=== PATIENT | female | born 1950 | race Caucasian/White ===

== ENCOUNTER 2018-12-29 16:52 | Inpatient (IN) ==
[2018-12-29] MEDS ORDERED: 0.9 % Sodium Chloride 1,000 ML IVC ONE ×2 (17:02→18:15)
[2018-12-29 17:16] LABS: Basophils # 0.1 K/mcL (0.0-0.2); Basophils % 0.5 %; Eosinophils % 0.1 %; Hematocrit 35.5 % (35.3-44.9); Hemoglobin 11.7 g/dL (11.5-15.4); Immature Granulocytes % 1.2 % (0-4); Lymphocytes # 0.8 K/mcL (0.6-4.6); Lymphocytes % 7.3 %; Mean Corpuscular Volume 94.2 fL (83.0-100.0); Mean Platelet Volume 9.5 fL (9.4-12.4); Monocytes # 0.8 K/mcL (0.0-1.3); Monocytes % 7.1 %; Neutrophils # 9.5 K/mcL (1.6-8.9); Platelet Count 481 K/mcL (140-400); Red Blood Count 3.77 M/mcL (3.82-4.97); Red Cell Distribution Width 13.5 % (11.5-14.5); Segmented Neutrophils % 83.8 %; White Blood Count 11.3 K/mcL (4.3-11.1)
--- NOTE | 2018-12-29 17:38 | Emergency Department Note ---
Disposition Clinical Impression: Neutropenic fever, Acute renal insufficiency, Dehydration Breast cancer Qualifiers: Breast location: unspecified site of breast Estrogen receptor status: unspecified Patient sex: female Laterality: unspecified laterality Qualified Code(s): C50.919 - Malignant neoplasm of unspecified site of unspecified female breast Disposition: Admitted As Inpatient Condition: Fair Referrals: Israel Green Jr, MD [Primary Care Provider] - Forms: ED Satisfaction Letter Time of Disposition: 21:19 General Adult HPI - General Chief complaint: ED Fever Stated complaint: fever, low BP Time Seen by Provider: 12/29/18 16:54 Source: patient Mode of arrival: ambulatory Limitations: no limitations Nursing Notes Reviewed: Yes Vital Signs Reviewed: Yes - History of Present Illness HPI Narrative: Patient is a 68-year-old female that presents the emergency department due to being febrile and hypotensive. His reported that the patient had a fever of 101 at home. Patient had a blood pressure of 70 systolic at her physician's office. Patient states that she has had a dry cough. Patient states that she has a history of breast cancer and is receiving chemotherapy. Patient states she is unable to have her last dose of chemotherapy due to not feeling well. Patient states that she is not having any chest pain, shortness breath, belly pain, nausea vomiting or diarrhea. Patient states that she is otherwise healthy other than the breast cancer. Pain Scale: 0 - Related Data Home Medications Medication Instructions Recorded Confirmed Ca/D3/Mag#11/Zinc/Refrigerator Room Clerk/Ilia/Bor 1 each PO HS 07/09/16 12/13/18 [Caltrate 600+D Plus Tablet] Multivit-Min/FA/Lycopen/Lutein 1 each PO DAILY 07/09/16 12/13/18 [Centrum Silver Tablet] Olmesartan/Hydrochlorothiazide 1 each PO DAILY 07/09/16 12/13/18 [Benicar Hct 20-12.5 mg Tablet] Levothyroxine [Synthroid] 50 mcg PO DAILY 08/16/18 12/13/18 Previous Rx's Medication Instructions Recorded Lidocaine/Prilocaine [Emla] 1 appl TP AD #30 gm 08/25/18 Dexamethasone [Decadron] 4 mg PO BID #36 tab 08/27/18 Ondansetron HCl [Zofran] 4 mg PO Q8HR PRN #90 tab 04/05/19 Prochlorperazine Maleate 10 mg PO Q8HR #90 tablet 08/27/18 [Compazine] Potassium Chloride [K-Tab ER] 10 meq PO DAILY #30 tablet.er 11/15/18 Allergies Allergy/AdvReac Type Severity Reaction Status Date / Time adhesive tape Allergy Rash Verified 12/13/18 13:42 All systems ED: reviewed and negative except as stated. Constitutional: Reports: fever Cardiovascular: Reports: other (Hypotension). Denies: chest pain Respiratory: Denies: dyspnea Gastrointestinal: Denies: abdominal pain Genitourinary: Denies: dysuria, frequency, hematuria Neurological: Denies: weakness, numbness, paresthesias Past Medical History - Past Medical History Medical history: Reports: cancer, hypertension, thyroid disease Surgical history: Reports: cholecystectomy, hysterectomy Psychiatric history: Reports: no psych history - Social History Smoking Status: Never smoker Smokeless Tobacco Status: No Alcohol use: Reports: none Drug use: Reports: none Physical Exam - General Limitations: no limitations General appearance: alert, in no apparent distress - Head Head exam: atraumatic, normocephalic - Eye Eye exam: Present: normal appearance, EOMI - Neck Neck exam: Present: normal inspection, full ROM, trachea midline - Respiratory Respiratory exam: Present: normal lung sounds bilaterally. Absent: respiratory distress, wheezes - Cardiovascular Cardiovascular exam: Present: regular rate, normal rhythm, normal heart sounds, +S1, +S2 - Abdominal Exam Abdominal exam: Present: soft, Non-Tender, normal bowel sounds - Neurological Exam Neurological exam: Present: alert, oriented X3 - Psychiatric Psychiatric exam: Present: normal affect, normal mood - Skin Skin exam: Present: warm, dry, intact Course Vital Signs Temperature 97.5 F L 12/29/18 16:54 Pulse Rate 78 12/29/18 16:54 Respiratory Rate 20 12/29/18 16:54 Blood Pressure 83/52 12/29/18 16:54 O2 Sat by Pulse Oximetry 96 12/29/18 16:54 Temperature 97.5 F L 12/29/18 16:54 Pulse Rate 125 12/29/18 20:00 Respiratory Rate 17 12/29/18 20:00 Blood Pressure 106/64 12/29/18 20:00 O2 Sat by Pulse Oximetry 94 12/29/18 20:00 Oxygen Delivery Oxygen Delivery Room Air Medical Decision Making - MDM Narrative Medical decision making narrative: Due the patient presenting to the emergency department with reports of hypotension and tachycardia as well as a fever there was initial concern that the patient may be septic. Initial septic workup was obtained. The patient did have an elevated troponin of 0.19. Patient did not have any chest pain. Patient had elevated creatinine of 2.14 with a reduced GFR 23. Patient also had initial elevated lactic acid 3.0. Patient did receive IV fluids. She did receive approximately 1800 mL of fluids and a repeat lactic acid was obtained which showed improvement of her lactic acid to 1.0. Due to the patient having persistent tachycardia up into the 160s a feel that the troponin is likely elevated due to her persistent tachycardia. Patient also states that she has not been eating and drinking well over the past 4-5 days. I feel that her laboratory findings are likely secondary to dehydration and lack of by mouth intake. CT scan of the chest abdomen and pelvis showed a possible pneumonitis but did not show any other acute symptoms to explain the patient's laboratory findings and symptoms. At this time there is no infectious etiology that has been identified. Empirically the patient was given a dose of vancomycin and Zosyn. Patient states that she has not had any chest pain at all over the past couple of days. Patient states that she she is feeling better now after receiving IV fluids. The did report that the patient did require IV fluids approximately 2-3 days ago at the cancer center due to being hypotensive and not feeling well. Patient states that at that time she did have significant improvement of her symptoms at that time as well. Due the patient's laboratory findings and initial presentation feel is most appropriate for her to be admitted to the hospital for further evaluation and management. I called and spoke with the admitting hospitalist Dr. Leonard and he has accepted the patient to their service. Patient be admitted to the hospital this time for further evaluation and management. - Medical Records Medical records reviewed: Yes I reviewed the patient's medical records. - Lab Data Lab results reviewed: Yes I reviewed the patient's lab results. Result diagrams: 12/29/18 17:03 12/29/18 17:03 Lab Results 12/29/18 12/29/18 12/29/18 Range/Units 17:03 17:03 17:03 WBC 11.3 H (4.3-11.1) K/mcL RBC 3.77 L (3.82-4.97) M/mcL Hgb 11.7 (11.5-15.4) g/dL Hct 35.5 (35.3-44.9) % MCV 94.2 (83.0-100.0) fL MCH 31.0 (28.0-33.3) pg MCHC 33.0 (31.6-35.5) g/dL RDW 13.5 (11.5-14.5) % Plt Count 481 H (140-400) K/mcL MPV 9.5 (9.4-12.4) fL Immature Gran % 1.2 (0-4) % Seg Neutrophils % 83.8 % Lymphocytes % 7.3 % Monocytes % 7.1 % Eosinophils % 0.1 % Basophils % 0.5 % Neutrophils # 9.5 H (1.6-8.9) K/mcL Lymphocytes # 0.8 (0.6-4.6) K/mcL Monocytes # 0.8 (0.0-1.3) K/mcL Eosinophils # 0.0 (0.0-0.6) K/mcL Basophils # 0.1 (0.0-0.2) K/mcL Sodium 135 L (136-145) mEq/L Potassium 3.1 L (3.5-5.1) mEq/L Chloride 97 L (98-107) mEq/L Carbon Dioxide 18 L (23-29) mEq/L BUN 33 H (8-23) mg/dL Creatinine 2.14 H (0.60-1.20) mg/dL Est GFR ( Amer) 28 L (> 60) Est GFR (Non-Af Amer) 23 L (> 60) BUN/Creatinine Ratio 15 (6-26) Glucose 159 H (70-105) mg/dL Calculated Osmolality 291 (280-300) Lactic Acid 3.0 H (0.5-2.2) mmol/L Uric Acid 8.0 H (2.3-7.6) mg/dL Calcium 9.5 (8.6-10.3) mg/dL Phosphorus 4.2 (2.7-4.5) mg/dL Magnesium 1.7 (1.6-2.6) mg/dL Total Bilirubin 0.5 (0.3-1.0) mg/dL Direct Bilirubin 0.0 (0.0-0.2) mg/dL Indirect Bilirubin 0.5 (0.0-1.2) mg/dL AST 15 (13-39) Units/L ALT 17 (7-52) Units/L Alkaline Phosphatase 55 (34-104) Units/L Troponin I 0.19 H* (< 0.04) ng/mL Serum Total Protein 7.3 (6.4-8.9) g/dL Albumin 3.6 (3.5-5.7) g/dL Globulin 3.7 H (2.4-3.5) g/dL Albumin/Globulin Ratio 1.0 L (1.1-2.2) Urine Color (Yellow) Urine Clarity (Clear) Urine pH (5.0-8.0) pH Units Ur Specific Conner (1.010-1.025) Urine Protein (Neg-Trace) mg/dL Urine Glucose (UA) (Normal) mg/dL Urine Ketones (Negative) mg/dL Urine Blood (Negative) Urine Nitrite (Negative) Urine Bilirubin (Negative) Urine Urobilinogen (Normal) mg/dL Ur Leukocyte Esterase (Negative) Urine Microscopic RBC (0-3) per hpf Urine Microscopic WBC (0-3) per hpf Ur Squamous Epith Cells (None-Few) per lpf Ur Transition Epith Cell (None-Few) per hpf Urine Bacteria (None-Few) per hpf Hyaline Casts (None-Few) per lpf Ur Culture Indicated? (NO) 12/29/18 12/29/18 Range/Units 18:15 20:19 WBC (4.3-11.1) K/mcL RBC (3.82-4.97) M/mcL Hgb (11.5-15.4) g/dL Hct (35.3-44.9) % MCV (83.0-100.0) fL MCH (28.0-33.3) pg MCHC (31.6-35.5) g/dL RDW (11.5-14.5) % Plt Count (140-400) K/mcL MPV (9.4-12.4) fL Immature Gran % (0-4) % Seg Neutrophils % % Lymphocytes % % Monocytes % % Eosinophils % % Basophils % % Neutrophils # (1.6-8.9) K/mcL Lymphocytes # (0.6-4.6) K/mcL Monocytes # (0.0-1.3) K/mcL Eosinophils # (0.0-0.6) K/mcL Basophils # (0.0-0.2) K/mcL Sodium (136-145) mEq/L Potassium (3.5-5.1) mEq/L Chloride (98-107) mEq/L Carbon Dioxide (23-29) mEq/L BUN (8-23) mg/dL Creatinine (0.60-1.20) mg/dL Est GFR ( Amer) (> 60) Est GFR (Non-Af Amer) (> 60) BUN/Creatinine Ratio (6-26) Glucose (70-105) mg/dL Calculated Osmolality (280-300) Lactic Acid 1.0 (0.5-2.2) mmol/L Uric Acid (2.3-7.6) mg/dL Calcium (8.6-10.3) mg/dL Phosphorus (2.7-4.5) mg/dL Magnesium (1.6-2.6) mg/dL Total Bilirubin (0.3-1.0) mg/dL Direct Bilirubin (0.0-0.2) mg/dL Indirect Bilirubin (0.0-1.2) mg/dL AST (13-39) Units/L ALT (7-52) Units/L Alkaline Phosphatase (34-104) Units/L Troponin I (< 0.04) ng/mL Serum Total Protein (6.4-8.9) g/dL Albumin (3.5-5.7) g/dL Globulin (2.4-3.5) g/dL Albumin/Globulin Ratio (1.1-2.2) Urine Color Yellow (Yellow) Urine Clarity Clear (Clear) Urine pH 7.5 (5.0-8.0) pH Units Ur Specific Conner 1.020 (1.010-1.025) Urine Protein 100 H (Neg-Trace) mg/dL Urine Glucose (UA) Normal (Normal) mg/dL Urine Ketones 15 H (Negative) mg/dL Urine Blood Trace-intact H (Negative) Urine Nitrite Negative (Negative) Urine Bilirubin Negative (Negative) Urine Urobilinogen Normal (Normal) mg/dL Ur Leukocyte Esterase Trace H (Negative) Urine Microscopic RBC 3-5 H (0-3) per hpf Urine Microscopic WBC 15-30 H (0-3) per hpf Ur Squamous Epith Cells Many H (None-Few) per lpf Ur Transition Epith Cell Few (None-Few) per hpf Urine Bacteria None Seen (None-Few) per hpf Hyaline Casts Few (None-Few) per lpf Ur Culture Indicated? YES A (NO) - Radiology Data Radiology results reviewed: Yes I reviewed the patient's radiology results. Chest X-Ray 12/29/18 17:02 IMPRESSION: 1. Cardiomegaly with mild vascular congestion. D/ / Trev Myles MD / Trev Myles MD Interpreting Provider: Trev Myles MD Abdomen/Pelvis CT 12/29/18 18:46 IMPRESSION: Fluid is seen within the lumen of the colon, in keeping with patient's history of diarrhea. Patchy heterogeneous and ground-glass opacity bilaterally, suggestive of pneumonitis with regions of air trapping. Mild induration of fat anterior to the bladder. If there is clinical question of cystitis, suggest correlation with urinalysis. D/ / Harsh Jones MD / Harsh Jones MD Interpreting Provider: Harsh Jones MD Chest CT 12/29/18 18:46 IMPRESSION: Fluid is seen within the lumen of the colon, in keeping with patient's history of diarrhea. Patchy heterogeneous and ground-glass opacity bilaterally, suggestive of pneumonitis with regions of air trapping. Mild induration of fat anterior to the bladder. If there is clinical question of cystitis, suggest correlation with urinalysis. D/ / Harsh Jones MD / Harsh Jones MD Interpreting Provider: Harsh Jones MD - EKG Data EKG #1 EKG attestation: Yes I reviewed and interpreted this EKG. EKG results narrative: EKG at 1704 shows a sinus tachycardia at a rate of 147 bpm, ND interval of 83, QRS duration 101, QTC 465. No evidence of STEMI on EKG. There are ST depressions in leads 1 and 2 and T-wave inversions in aVL. EKG #2 EKG attestation: Yes I reviewed and interpreted this EKG. EKG results narrative: EKG and 1816 shows sinus tachycardia at a rate of 142 bpm, ND interval of 101, QRS duration and 90, QTc of 480. No evidence of STEMI and EKG. There are T- wave inversions in aVL, ST depression in lead 1 and lead 2. Attestation Statement - Attestation Attestation: I, Diaz Ruffin DO, examined this patient [id number] and my medical decision-making was reviewed with Dr. Candelario Ortega, Resident Physician. I agree with the documented findings, disposition and treatment plan as described except to the extent set forth below. I personally supervised and was present for the ambrosio/critical portions of the procedures completed by the resident documented below. Please see my progress notes for details.
[2018-12-29 17:47] LABS: Troponin I 0.19 ng/mL (< 0.04)
[2018-12-29] MEDS ORDERED: Isovue-370 500 ML BOTTLE IVP ONE (18:02)
[2018-12-29 18:27] LABS: Bilirubin,Urine Negative (Negative); Blood,Urine Trace-intact (Negative); Clarity,Urine Clear (Clear); Color,Urine Yellow (Yellow); Glucose,Urine (UA) Normal (Normal); Ketones,Urine 15 mg/dL (Negative); Leukocyte Esterase,Urine Trace (Negative); Nitrite,Urine Negative (Negative); PH,Urine 7.5 pH Units (5.0-8.0); Protein,Urine 100 mg/dL (Neg-Trace); Urobilinogen,Urine Normal (Normal)
[2018-12-29 18:29] LABS: Bacteria,Urine None Seen per hpf (None-Few); Squamous Epithelial Cell,Urine Many per lpf (None-Few); WBC,Urine 15-30 per hpf (0-3)
--- NOTE | 2018-12-29 18:33 | Emergency Department Note ---
Disposition Clinical Impression: Breast cancer, Neutropenic fever, Acute renal insufficiency, Dehydration Disposition: Admitted As Inpatient Condition: Fair Forms: ED Satisfaction Letter Time of Disposition: 21:07 General Adult HPI - General Chief complaint: ED Fever Stated complaint: fever, low BP Time Seen by Provider: 12/29/18 16:54 Source: patient Mode of arrival: ambulatory Limitations: no limitations - History of Present Illness Pain Scale: 0 - Related Data Home Medications Medication Instructions Recorded Confirmed Ca/D3/Mag#11/Zinc/Loan And Credit Manager/Ilia/Bor 1 each PO HS 07/09/16 12/29/18 [Caltrate 600+D Plus Tablet] Multivit-Min/FA/Lycopen/Lutein 1 each PO DAILY 07/09/16 12/29/18 [Centrum Silver Tablet] Olmesartan/Hydrochlorothiazide 1 each PO DAILY 07/09/16 12/29/18 [Benicar Hct 20-12.5 mg Tablet] Levothyroxine [Synthroid] 50 mcg PO DAILY 08/16/18 12/29/18 Previous Rx's Medication Instructions Recorded Lidocaine/Prilocaine [Emla] 1 appl TP AD #30 gm 08/25/18 Dexamethasone [Decadron] 4 mg PO BID #36 tab 08/27/18 Ondansetron HCl [Zofran] 4 mg PO Q8HR PRN #90 tab 08/27/18 Prochlorperazine Maleate 10 mg PO Q8HR #90 tablet 08/27/18 [Compazine] Potassium Chloride [K-Tab ER] 10 meq PO DAILY #30 tablet.er 11/15/18 Allergies Allergy/AdvReac Type Severity Reaction Status Date / Time adhesive tape Allergy Rash Verified 12/13/18 13:42 Constitutional: Reports: fever Cardiovascular: Reports: other (Hypotension). Denies: chest pain Respiratory: Denies: dyspnea Gastrointestinal: Denies: abdominal pain Genitourinary: Denies: dysuria, frequency, hematuria Neurological: Denies: weakness, numbness, paresthesias Past Medical History - Past Medical History Medical history: Reports: cancer, hypertension, thyroid disease Surgical history: Reports: cholecystectomy, hysterectomy Psychiatric history: Reports: no psych history - Social History Smoking Status: Never smoker Smokeless Tobacco Status: No Alcohol use: Reports: none Drug use: Reports: none Physical Exam - General Limitations: no limitations General appearance: alert, in no apparent distress Course Vital Signs Temperature 97.5 F L 12/29/18 16:54 Pulse Rate 78 12/29/18 16:54 Respiratory Rate 20 12/29/18 16:54 Blood Pressure 83/52 12/29/18 16:54 O2 Sat by Pulse Oximetry 96 12/29/18 16:54 Temperature 97.5 F L 12/29/18 16:54 Pulse Rate 125 12/29/18 20:00 Respiratory Rate 17 12/29/18 20:00 Blood Pressure 106/64 12/29/18 20:00 O2 Sat by Pulse Oximetry 94 12/29/18 20:00 Oxygen Delivery Oxygen Delivery Room Air Medical Decision Making - Lab Data Result diagrams: 12/29/18 17:03 12/29/18 17:03 Lab Results 12/29/18 12/29/18 12/29/18 Range/Units 17:03 17:03 17:03 WBC 11.3 H (4.3-11.1) K/mcL RBC 3.77 L (3.82-4.97) M/mcL Hgb 11.7 (11.5-15.4) g/dL Hct 35.5 (35.3-44.9) % MCV 94.2 (83.0-100.0) fL MCH 31.0 (28.0-33.3) pg MCHC 33.0 (31.6-35.5) g/dL RDW 13.5 (11.5-14.5) % Plt Count 481 H (140-400) K/mcL MPV 9.5 (9.4-12.4) fL Immature Gran % 1.2 (0-4) % Seg Neutrophils % 83.8 % Lymphocytes % 7.3 % Monocytes % 7.1 % Eosinophils % 0.1 % Basophils % 0.5 % Neutrophils # 9.5 H (1.6-8.9) K/mcL Lymphocytes # 0.8 (0.6-4.6) K/mcL Monocytes # 0.8 (0.0-1.3) K/mcL Eosinophils # 0.0 (0.0-0.6) K/mcL Basophils # 0.1 (0.0-0.2) K/mcL Sodium 135 L (136-145) mEq/L Potassium 3.1 L (3.5-5.1) mEq/L Chloride 97 L (98-107) mEq/L Carbon Dioxide 18 L (23-29) mEq/L BUN 33 H (8-23) mg/dL Creatinine 2.14 H (0.60-1.20) mg/dL Est GFR ( Amer) 28 L (> 60) Est GFR (Non-Af Amer) 23 L (> 60) BUN/Creatinine Ratio 15 (6-26) Glucose 159 H (70-105) mg/dL Calculated Osmolality 291 (280-300) Lactic Acid 3.0 H (0.5-2.2) mmol/L Uric Acid 8.0 H (2.3-7.6) mg/dL Calcium 9.5 (8.6-10.3) mg/dL Phosphorus 4.2 (2.7-4.5) mg/dL Magnesium 1.7 (1.6-2.6) mg/dL Total Bilirubin 0.5 (0.3-1.0) mg/dL Direct Bilirubin 0.0 (0.0-0.2) mg/dL Indirect Bilirubin 0.5 (0.0-1.2) mg/dL AST 15 (13-39) Units/L ALT 17 (7-52) Units/L Alkaline Phosphatase 55 (34-104) Units/L Troponin I 0.19 H* (< 0.04) ng/mL Serum Total Protein 7.3 (6.4-8.9) g/dL Albumin 3.6 (3.5-5.7) g/dL Globulin 3.7 H (2.4-3.5) g/dL Albumin/Globulin Ratio 1.0 L (1.1-2.2) Urine Color (Yellow) Urine Clarity (Clear) Urine pH (5.0-8.0) pH Units Ur Specific [place] (1.010-1.025) Urine Protein (Neg-Trace) mg/dL Urine Glucose (UA) (Normal) mg/dL Urine Ketones (Negative) mg/dL Urine Blood (Negative) Urine Nitrite (Negative) Urine Bilirubin (Negative) Urine Urobilinogen (Normal) mg/dL Ur Leukocyte Esterase (Negative) Urine Microscopic RBC (0-3) per hpf Urine Microscopic WBC (0-3) per hpf Ur Squamous Epith Cells (None-Few) per lpf Ur Transition Epith Cell (None-Few) per hpf Urine Bacteria (None-Few) per hpf Hyaline Casts (None-Few) per lpf Ur Culture Indicated? (NO) 12/29/18 12/29/18 Range/Units 18:15 20:19 WBC (4.3-11.1) K/mcL RBC (3.82-4.97) M/mcL Hgb (11.5-15.4) g/dL Hct (35.3-44.9) % MCV (83.0-100.0) fL MCH (28.0-33.3) pg MCHC (31.6-35.5) g/dL RDW (11.5-14.5) % Plt Count (140-400) K/mcL MPV (9.4-12.4) fL Immature Gran % (0-4) % Seg Neutrophils % % Lymphocytes % % Monocytes % % Eosinophils % % Basophils % % Neutrophils # (1.6-8.9) K/mcL Lymphocytes # (0.6-4.6) K/mcL Monocytes # (0.0-1.3) K/mcL Eosinophils # (0.0-0.6) K/mcL Basophils # (0.0-0.2) K/mcL Sodium (136-145) mEq/L Potassium (3.5-5.1) mEq/L Chloride (98-107) mEq/L Carbon Dioxide (23-29) mEq/L BUN (8-23) mg/dL Creatinine (0.60-1.20) mg/dL Est GFR ( Amer) (> 60) Est GFR (Non-Af Amer) (> 60) BUN/Creatinine Ratio (6-26) Glucose (70-105) mg/dL Calculated Osmolality (280-300) Lactic Acid 1.0 (0.5-2.2) mmol/L Uric Acid (2.3-7.6) mg/dL Calcium (8.6-10.3) mg/dL Phosphorus (2.7-4.5) mg/dL Magnesium (1.6-2.6) mg/dL Total Bilirubin (0.3-1.0) mg/dL Direct Bilirubin (0.0-0.2) mg/dL Indirect Bilirubin (0.0-1.2) mg/dL AST (13-39) Units/L ALT (7-52) Units/L Alkaline Phosphatase (34-104) Units/L Troponin I (< 0.04) ng/mL Serum Total Protein (6.4-8.9) g/dL Albumin (3.5-5.7) g/dL Globulin (2.4-3.5) g/dL Albumin/Globulin Ratio (1.1-2.2) Urine Color Yellow (Yellow) Urine Clarity Clear (Clear) Urine pH 7.5 (5.0-8.0) pH Units Ur Specific [place] 1.020 (1.010-1.025) Urine Protein 100 H (Neg-Trace) mg/dL Urine Glucose (UA) Normal (Normal) mg/dL Urine Ketones 15 H (Negative) mg/dL Urine Blood Trace-intact H (Negative) Urine Nitrite Negative (Negative) Urine Bilirubin Negative (Negative) Urine Urobilinogen Normal (Normal) mg/dL Ur Leukocyte Esterase Trace H (Negative) Urine Microscopic RBC 3-5 H (0-3) per hpf Urine Microscopic WBC 15-30 H (0-3) per hpf Ur Squamous Epith Cells Many H (None-Few) per lpf Ur Transition Epith Cell Few (None-Few) per hpf Urine Bacteria None Seen (None-Few) per hpf Hyaline Casts Few (None-Few) per lpf Ur Culture Indicated? YES A (NO) Attestation Statement - Attestation Attestation: I, Diaz Ruffin DO, examined this patient [id number] and my medical decision-making was reviewed with Dr. Candelario Ortega, Resident Physician. I agree with the documented findings, disposition and treatment plan as described except to the extent set forth below. I personally supervised and was present for the ambrosio/critical portions of the procedures completed by the resident documented below. Please see my progress notes for details. 68-year-old female presents emergency room for evaluation of hypotension fever o f 101 and chemotherapy treatment. Patient went to see her primary care provider Dr. henderson after having a fever for one week. Patient denies any cough congestion or productive sputum. Denies any travel outside the country. She has no other sick contacts. Currently denying chest pain shortness of breath headache vision changes nausea vomiting or diarrhea. She has not started any new medications and she is currently in chemotherapy treatment secondary to breast cancer. She did miss her dose of chemotherapy one week ago and has not had a dose of chemotherapy in 2 weeks at this time. Vital signs do show hypertension and intermittent tachycardia presentation. She is afebrile here. Patient is sitting in the bed and acting appropriate. Head is atraumatic. She does have what appears to be symptomatic when she goes to stand up and gets lightheaded and slight tunnel vision. Patient has not started any new antibiotics or medications at this time. She is been eating and drinking at her baseline. Patient is alert she is oriented. She is acting appropriately. is with her and says that she is completely at her baseline this time but is been more symptomatic. Initial blood pressure did show 82/57. Patient was sitting in the bed at that time. Heart rate was initially in the 80s to 90s and then jumped up to 150. Concern is noted for possible ectopic atrial rhythm versus atrial fibrillation versus sinus tachycardia secondary to the fluid. Patient is also concerning secondary to the chemotherapy with having heart related issues from the medications. Chest x-ray EKG CBC chemistry troponin electrolytes blood cultures single liter of fluid will be given at this time. Patient has no known history of heart failure but only has abnormalities at this time with hypotension and tachycardia with no fever here in the emergency department. We will continue to monitor closely his symptoms are controlled and treated. Patient will most likely require admission once we have the workup established. EKG was reviewed by myself and documented the resident physician note. Otherwise the patient is stable. See detailed documentation the physical exam, medical intervention, medical decision-making disposition the resident physician's documentation. Patient's port will be accessed and another IV will be obtained. Fluids will be given as needed. Patient does not mandate initial aggressive fluid resuscitation concerning she is asymptomatic we will continue to passively hydrate as needed. Disposition pending. 1600 Patient has a lactic acid of 3.0 and troponin of 0.19. Patient does have new renal insufficiency with a GFR of 23. Noncontrasted scans of the chest and abdomen will be ordered at this point. Bedside point of care ultrasound will be completed to look for any signs of pericardial effusion secondary to the elevated troponin. Patient's heart rate and blood pressure are fluid responsive at this time and her blood pressure is into the normal range of 110 systolic and her heart rate is down to 132. Pulmicort congestion was noted on chest x-ray with cardiomegaly. These are undifferentiated from previous evaluations. Concern is noted for chemotherapy-induced cardiomyopathy versus pulmonary edema. Patient will be passively hydrated with maintenance fluids. She has received 1.3 L of fluid at this time and no be transitioned over to maintenance fluids at this point. Patient does not show any profound signs of septic shock and does not have an infectious etiology at this point justifies antibiotic regiment. Imaging workup will be established. Patient is otherwise tolerated the fluids well located to monitor. His heart rate does not continue to respond to fluids Cardizem drip will be added on to regulate the heart rate. Disposition will be admission wants a full workup and treatment course have been completed 60 minutes of critical care provider the patient's treatment course at this time secondary to multidisciplinary intervention medical management for multiple issues including potential infection, dehydration and cancer. Patient will have prophylactic vancomycin and Zosyn at this time even though we do not have an infectious source to treat currently. 2100 Dr. Leonard reviewed the case at length. Patient's absolute neutrophil count was 1038. This is consistent with neutropenic fever with unknown etiology. Anabolic 7 ordered most likely will be stopped in the hospital. Lactic acid is down trended from 3-1.0. Patient's heart rate continues to down trend with fluid resuscitation. She has been provided approximately 2 L of fluid here in the emergency department. Patient did have the initial decreased blood pressure was fluid responsive. We will continue to resuscitate to the 2400 mL of fluid but we have given it in small aliquots and not in boluses secondary to the patient's vascular congestion on chest x-ray. Patient has been responding to the treatment appropriately and will receive the entire 2.4 L of fluid while here in the emergency room prior to going to the floor. Patient is otherwise stable. Disposition pending full workup. Patient will be monitored here in the emergency room to the admission process is completed.
[2018-12-29 18:41] LABS: Albumin 3.6 g/dL (3.5-5.7); Bilirubin,Indirect 0.5 mg/dL (0.0-1.2); Bilirubin,Total 0.5 mg/dL (0.3-1.0); Calcium 9.5 mg/dL (8.6-10.3); Globulin 3.7 g/dL (2.4-3.5); Magnesium 1.7 mg/dL (1.6-2.6); Phosphorous 4.2 mg/dL (2.7-4.5); Potassium 3.1 mEq/L (3.5-5.1); Total Protein 7.3 g/dL (6.4-8.9)
[2018-12-29 18:46] LABS: Hyaline Casts,Urine Few per lpf (None-Few)
[2018-12-29 18:47] LABS: Transitional Epi Cells,Urine Few per hpf (None-Few)
[2018-12-29] MEDS ORDERED: Potassium Chloride Elixir 20 MEQ/15 ML UDC PO ONE (18:47)
[2018-12-29] MEDS ORDERED: Piperacillin/Tazobactam 3.375 GM in 0.9 % Sodium Chloride Mini Bag 100 ML IVPB ONE (19:02)
[2018-12-29] MEDS ORDERED: Aspirin 81 MG TAB.CHEW PO STA (20:01)
[2018-12-29] MEDS ORDERED: 0.9 % Sodium Chloride 500 ML IVC ONE (20:02)
[2018-12-29] MEDS: 0.9 % Sodium Chloride 1,000 ML IVC SCH (20:59)
[2018-12-30] MEDS ORDERED: Naloxone 0.4 MG/ML INJ IVP PRN (02:03)
[2018-12-30] MEDS ORDERED: *HR* Heparin 5,000 UNIT/ML VIAL IVP PRN ×2 (03:04)
[2018-12-30] MEDS ORDERED: *HR* Heparin 5,000 UNIT/ML VIAL IVP ONE (03:04)
[2018-12-30] MEDS: 0.9 % Sodium Chloride 1,000 ML IVC SCH ×3 (03:19→05:34)
[2018-12-30 03:53] LABS: Hematocrit 28.6 % (35.3-44.9); Hemoglobin 9.5 g/dL (11.5-15.4); Mean Corpuscular HGB Conc 33.2 g/dL (31.6-35.5); Mean Corpuscular Hemoglobin 31.6 pg (28.0-33.3); Mean Platelet Volume 9.2 fL (9.4-12.4); Platelet Count 365 K/mcL (140-400); Red Blood Count 3.01 M/mcL (3.82-4.97); Red Cell Distribution Width 13.7 % (11.5-14.5); White Blood Count 9.2 K/mcL (4.3-11.1)
--- NOTE | 2018-12-30 03:57 | Internal Med History&Physical ---
Date of Encounter: 12/30/18 Time of Encounter: 01:42 Internal Medicine - H&P: HPI Chief complaint: Weakness Admitted From: Emergency Dept Plans for Post Hospital Care: Home History of present illness: Ms. Umanzor is a 68 year old female Patient presented to the emergency department with weakness and hypotension. She has a significant past medical history of breast cancer, currently undergoing chemotherapy. She had gone to her chemotherapy appointment 2 days ago, was found to have a temperature of 102 and a low blood pressure. Rather than receive her chemotherapy she was given IV fluids and her appointment was rescheduled. She continued to not feel well, had increased weakness and therefore came to the hospital for further evaluation. In the emergency department patient's initial vital signs: Temperature 97.5, pulse 78, respiratory rate 20, blood pressure 83/52, O2 saturation 96% on room air CBC: White count 11.3, hemoglobin 11.7, platelets 481 BMP: Sodium 135, potassium 3.1, chloride 97, bicarbonate 18, BUN 33, creatinine 2.14, glucose 159. Initial lactic acid 3.0, improving to 1.0 with IV fluids. Uric acid 8.0 Initial troponin 0.19, repeat 0.12 Urinalysis: 100 protein, trace leukocyte esterase, trace blood, 15-30 white blood cells and no bacteria seen. Chest x-ray showed mild vascular congestion. CT chest and abdomen: IMPRESSION: Fluid is seen within the lumen of the colon, in keeping with patient's history of diarrhea. Patchy heterogeneous and ground-glass opacity bilaterally, suggestive of pneumonitis with regions of air trapping. Mild induration of fat anterior to the bladder. If there is clinical question of cystitis, suggest correlation with urinalysis. Multiple EKGs were performed due to patient's elevated heart rate. First EKG showed supraventricular tachycardia with a rate of 142. QTC 480ms. No ST elevations. Repeat EKG showed sinus tachycardia, rate 147. Previous EKG from 2010 showed sinus bradycardia. In the ER patient initially received 2.5 L of IV fluid, blood cultures and urine cultures were obtained. She was started on vancomycin and Zosyn. Cardizem was also ordered but was never started. She was admitted to the hospital for furth er management. Upon my evaluation, patient is resting comfortably in the hospital bed in no acute distress. She denies chest pain, abdominal pain, nausea, vomiting, dysuria, diarrhea and constipation. She denies feeling palpitations, short of breath. She denies history of A. fib, and has no other cardiac history. She is a full code. Past Med Surg Social Fam HX - Past Medical History Medical history: cancer, hypertension, thyroid disease Additional medical history: HTN. Microcalcifications of the breast. breast lump. Carpal tunnel syndrome, Osteoporosis, sinusitis, bronchitis, step pharyngitis, venous insufficency, Varicose veins, spider veins Psychiatric history: no psych history - Past Surgical History Surgical History: cholecystectomy, hysterectomy Additional surgical history: port placement - Social History Smoking Status: Never smoker Smokeless Tobacco Status: No Alcohol use: none Drug use: none - Family History Father Hx Family Medical Disorders: Yes (Hypertension) Internal Medicine - H&P: Meds Ca/D3/Mag#11/Zinc/Mushroom Laborer/Ilia/Bor [Caltrate 600+D Plus Tablet] 1 each PO HS 07/09/16 [History] Multivit-Min/FA/Lycopen/Lutein [Centrum Silver Tablet] 1 each PO DAILY 07/09/16 [History] Olmesartan/Hydrochlorothiazide [Benicar Hct 20-12.5 mg Tablet] 1 each PO DAILY 07/09/16 [History] Levothyroxine [Synthroid] 50 mcg PO DAILY 08/16/18 [History] Lidocaine/Prilocaine [Emla] 1 appl TP AD #30 gm 08/25/18 [Rx] Dexamethasone [Decadron] 4 mg PO BID #36 tab 08/27/18 [Rx] Ondansetron HCl [Zofran] 4 mg PO Q8HR PRN #90 tab 08/27/18 [Rx] Prochlorperazine Maleate [Compazine] 10 mg PO Q8HR #90 tablet 08/27/18 [Rx] Potassium Chloride [K-Tab ER] 10 meq PO DAILY #30 tablet.er 11/15/18 [Rx] Allergy/AdvReac Type Severity Reaction Status Date / Time adhesive tape Allergy Rash Verified 12/13/18 13:42 All Systems PM: A 10-system review of systems was performed and is negative for pertinent findings except as documented above in the HPI. - Constitutional Vitals: Temp Pulse Resp BP Pulse Ox 98.2 F 113 17 106/67 91 12/29/18 23:03 12/29/18 23:03 12/29/18 23:03 12/29/18 23:03 12/29/18 23:03 General appearance: Present: cooperative, A&O X 3, pleasant, no acute distress, answers questions appropriately Exam: - - Head Head exam: Present: normal inspection - Eye Eye exam: Present: EOMI, normal appearance - Respiratory Respiratory exam: Present: CTAB. Absent: rales, respiratory distress, rhonchi, wheezes - Cardiovascular Cardiovascular exam: Present: irregular rhythm, tachycardia. Absent: diastolic murmur, systolic murmur - GI/Abdominal GI/Abdominal exam: Present: normal bowel sounds, soft. Absent: tenderness - Extremities Exam Extremities exam: Present: warm, radial pulses palpable and symmetrical. Absent: calf tenderness, pedal edema, tenderness - Neurological Exam Neurological exam: Present: no focal deficits, strengths equal and symetr throughout. Absent: motor sensory deficit, facial droop, speech deficit - Skin Skin exam: Present: dry, normal color, warm Internal Med - H&P Results - Labs CBC & Chem 7: 12/29/18 17:03 12/29/18 17:03 Labs: Short CBC 12/29/18 Range/Units 17:03 WBC 11.3 H (4.3-11.1) K/mcL Hgb 11.7 (11.5-15.4) g/dL Hct 35.5 (35.3-44.9) % Plt Count 481 H (140-400) K/mcL Neutrophils # 9.5 H (1.6-8.9) K/mcL BMP 12/29/18 17:03 Sodium 135 L Potassium 3.1 L Chloride 97 L Carbon Dioxide 18 L BUN 33 H Creatinine 2.14 H Glucose 159 H Calcium 9.5 Cardiac Enzymes 12/29/18 12/29/18 Range/Units 17:03 20:54 Troponin I 0.19 H* 0.12 H* (< 0.04) ng/mL Liver Function 12/29/18 Range/Units 17:03 Total Bilirubin 0.5 (0.3-1.0) mg/dL Direct Bilirubin 0.0 (0.0-0.2) mg/dL AST 15 (13-39) Units/L ALT 17 (7-52) Units/L Alkaline Phosphatase 55 (34-104) Units/L Albumin 3.6 (3.5-5.7) g/dL Urine 12/29/18 Range/Units 18:15 Urine Color Yellow (Yellow) Urine Clarity Clear (Clear) Urine pH 7.5 (5.0-8.0) pH Units Ur Specific [place] 1.020 (1.010-1.025) Urine Protein 100 H (Neg-Trace) mg/dL Urine Glucose (UA) Normal (Normal) mg/dL - Impressions ITS Impressions Chest X-Ray 12/29/18 17:02 IMPRESSION: 1. Cardiomegaly with mild vascular congestion. D/ / Trev Myles MD / Trev Myles MD Interpreting Provider: Trev Myles MD Abdomen/Pelvis CT 12/29/18 18:46 IMPRESSION: Fluid is seen within the lumen of the colon, in keeping with patient's history of diarrhea. Patchy heterogeneous and ground-glass opacity bilaterally, suggestive of pneumonitis with regions of air trapping. Mild induration of fat anterior to the bladder. If there is clinical question of cystitis, suggest correlation with urinalysis. D/ / Harsh Jones MD / Harsh Jones MD Interpreting Provider: Harsh Jones MD Chest CT 12/29/18 18:46 IMPRESSION: Fluid is seen within the lumen of the colon, in keeping with patient's history of diarrhea. Patchy heterogeneous and ground-glass opacity bilaterally, suggestive of pneumonitis with regions of air trapping. Mild induration of fat anterior to the bladder. If there is clinical question of cystitis, suggest correlation with urinalysis. D/ / Harsh Jones MD / Harsh Jones MD Interpreting Provider: Harsh Jones MD - Assessment and Plan (1) Atrial fibrillation Current Visit: Yes Status: Acute Assessment and plan: Repeat EKG once arrived to the medical floor did show atrial fibrillation with RVR. During my exam patient's rate ranged anywhere from 150's to low 100's. Patient denies feeling palpitations. Cardizem had initially been ordered by the ER, but it was not started as patient's rate was not consistent enough. Patient's blood pressures have also been in the low 100's systolic as well. Will try to give more IV fluids, and support her blood pressure. Start cardizem if IV fluid boluses ineffective and patient's rate remains high. Start heparin drip Echocardiogram in the morning Cardiology consult Qualifiers: Atrial fibrillation type: unspecified Qualified Code(s): I48.91 - Unspecified atrial fibrillation (2) Pneumonitis Current Visit: Yes Status: Acute Assessment and plan: As seen on CT of the chest. Patient also has had fevers, elevated lactic acid and has an elevated white count. With her history of breast cancer and being on chemotherapy, she was started on antibiotics and blood cultures were drawn. Follow up blood cultures Continue IV antibiotics Monitor for worsening signs of infection. (3) Elevated troponin Current Visit: Yes Status: Acute Assessment and plan: initial troponin of 0.19, improving to 0.12 on repeat. Patient denies history of cardiac disease. Likely elevated due to elevated heart rate and RONNIE. EKGs negative for ST elevations. Does show atrial fibrillation as noted above. Continue to trend troponin Cardiac telemetry Echocardiogram in the morning Cardiology consultation (4) Hypokalemia Current Visit: Yes Status: Acute Assessment and plan: Patient received 40meq of PO potassium in the ER. Magnesium level 1.7. Repeat AM labs replete if indicated (5) Acute renal insufficiency Current Visit: Yes Status: Acute Assessment and plan: Creatinine increased at 2.14, baseline is less than 1.0. She has received IV fluids in the ER. Continue IV fluid hydration Repeat AM labs. (6) Breast cancer Current Visit: Yes Status: Acute Assessment and plan: Management per oncology team Qualifiers: Breast location: unspecified site of breast Estrogen receptor status: unspecified Patient sex: female Laterality: unspecified laterality Qualified Code(s): C50.919 - Malignant neoplasm of unspecified site of unspecified female breast (7) DVT prophylaxis Current Visit: Yes Status: Acute Assessment and plan: Starting heparin drip due to new onset atrial fibrillation and [id number] score of 2. Patient also has history of breast cancer, increasing her risk of developing clot. - Time Spent With Patient Total time spent is greater than 50% in coordination of care (as documented) at patient's floor/unit and/or counseling patient: Greater than 35 minutes
[2018-12-30 04:00] LABS: Heparin anti-factor XA UFH 0.02 IU/mL (0.30-0.70)
[2018-12-30 04:01] LABS: INR 1.2; Prothrombin Time 13.2 Seconds (9.4-12.1)
[2018-12-30] MEDS: Heparin 25,000 UNIT/250 ML D5W 25,000 UNIT/250 ML IV.SOLN IVC SCH (04:08)
[2018-12-30 04:15] LABS: Calcium 8.1 mg/dL (8.6-10.3); Potassium 2.8 mEq/L (3.5-5.1)
[2018-12-30 04:26] LABS: Troponin I 0.12 ng/mL (< 0.04)
--- NOTE | 2018-12-30 07:28 | Event Note ---
Date of Encounter: 12/30/18 Time of Encounter: 07:00 Rapid response called to patient's room for sudden shortness of breath and elevated heart rate to 180's. Upon arrival to patient's room patient was on non- rebreather oxygen mask, but heart rate had improved, but still elevated in 140 range. Patient's blood pressure had also improved to 140/100. Patient had clear breath sounds on auscultation, does not seem fluid overloaded. Will obtain VQ scan as patient's renal function still not sufficient to support a contrast load for CT angiogram. Patient has been on heparin drip for her atrial fibrillation. Will also initiate cardizem now as well. Follow up cardiology recommendations today, as well as echocardiogram. Discussed with day-team provider who will be taking over cares.
[2018-12-30] MEDS ORDERED: *HR* Metoprolol 5 MG/5 ML VIAL IVP ONE ×2 (08:29→08:43)
[2018-12-30] MEDS ORDERED: Furosemide 20 MG/2 ML VIAL IVP ONE ×2 (08:31→09:33)
[2018-12-30] MEDS: *HR* Metoprolol 5 MG/5 ML VIAL IVP PRN ×3 (08:35→09:06)
[2018-12-30 09:34] LABS: Magnesium 1.6 mg/dL (1.6-2.6)
[2018-12-30] MEDS: Piperacillin/Tazobactam 3.375 GM in 0.9 % Sodium Chloride Mini Bag 100 ML IVPB SCH ×3 (09:50→23:25)
--- NOTE | 2018-12-30 11:20 | Cardiology Consult Note ---
<Marino Mirza - Last Filed: 12/30/18 11:16> Date of Encounter: 12/30/18 Time of Encounter: 11:16 Assessment and Plan (1) Atrial fibrillation Current Visit: Yes Status: Acute New diagnosis of A-Fib. Presented with weakness--found to have RONNIE, troponin elevation and A-Fib RVR. Chest CT suggestive for pneumonitis. Currently on cardizem gtt at 17.5mg/hr, Lopressor PO 25mg BID was started and she has received 3 doses of IV Lopressor 5mg. HR 90s at bedside currently. TTE LV systolic function grossly appears normal. Normal RV structure with hyperdynamic function. Mild MR. Mildly sclerotic AV leaflets. Mild AR. Mild TR. Mild MD. Moderate phtn. K 2.8 and Mag 1.6--replace. Check TSH. Will continue with rate control strategy. [id number] 3 (Age, Female, HTN). Currrently on heparin gtt. HGB 11.7 on admission--now 9.5. Recheck STAT CBC. If HGB continues to drop will stop heparin gtt. [facility] AC will determine on H&H trend. Qualifiers: Atrial fibrillation type: unspecified Qualified Code(s): I48.91 - Unspecified atrial fibrillation (2) Elevated troponin Current Visit: Yes Status: Acute Troponin 0.19, 0.12, 0.12, 0.15 in setting of RONNIE, A-Fib RVR, pneumonitis. Suspect demand ischemia, nondiagnostic for ACS. Pt denies chest pain. TTE EF preserved. Discussion w patient/family: The assessment and plan as outlined above was discussed with the patient and/or family members who expressed understanding and agreement. All questions were answered. Thank you for involving us in the care of your patient. Please call with any questions. I will discuss all the above with Dr. Schwab and make changes as necessary. History of Present Illness Consult date: 12/30/18 Consult reason: A-fib RVR Chief complaint: weakness History of present illness: Ms. Umanzor is a 68 year old female presented to the ED with weakness and hypotension. She has a significant PMH of breast cancer, currently undergoing chemotherapy. She had gone to her chemotherapy appointment 2 days ago, was found to have a temperature of 102 and a low blood pressure. She continued to not feel well, had increased weakness and came to the hospital for further evaluation. She was found to be in A-Fib RVR. 2 rapid responses have been called since admission d/t respiratory distress and A-Fib RVR. She denies chest pain or palpitations. Reports dyspnea and weakness. No prior cardiac hx. Troponins 0.19, 0.12, 0.12. RONNIE on admission, creatinine 2.14, now 1.29. 12 hr tele AVG HR 129, A-Fib. Currently on cardizem gtt at 17.5mg/hr. HR 90s at bedside. TTE obtained--Technically challenging exam due to heart rate. Atrial fibrillation with elevated heart rate as high as 179bpm. LV systolic function grossly appears normal. Indeterminate diastolic function. Normal right ventricular structure with hyperdynamic function. Mild mitral regurgitation. Mildly sclerotic aortic valve leaflets. Mild aortic regurgitation. Mild tricuspid regurgitation. Mild pulmonic regurgitation. Moderate pulmonary hypertension. Past Med Surg Social Fam HX - Past Medical History Medical history: cancer, hypertension, thyroid disease Additional medical history: HTN. Microcalcifications of the breast. breast lump. Carpal tunnel syndrome, Osteoporosis, sinusitis, bronchitis, step pharyngitis, venous insufficency, Varicose veins, spider veins Psychiatric history: no psych history - Past Surgical History Surgical History: cholecystectomy, hysterectomy Additional surgical history: port placement - Social History Smoking Status: Never smoker Smokeless Tobacco Status: No Alcohol use: none Drug use: none - Family History Father Hx Family Medical Disorders: Yes (Hypertension) Medications and Allergies Ca/D3/Mag#11/Zinc/Electrical Maintenance Worker/Ilia/Bor [Caltrate 600+D Plus Tablet] 2 tab PO QAM 07/09/16 [History] Multivit-Min/FA/Lycopen/Lutein [Centrum Silver Tablet] 1 tab PO DAILY 07/09/16 [History] Olmesartan/Hydrochlorothiazide [Benicar Hct 20-12.5 mg Tablet] 1 tab PO DAILY 07/09/16 [History] Levothyroxine [Synthroid] 50 mcg PO QAM 08/16/18 [History] Lidocaine/Prilocaine [Emla] 1 appl TP AD #30 gm 08/25/18 [Rx] Dexamethasone [Decadron] 4 mg PO BID #36 tab 08/27/18 [Rx] Potassium Chloride [K-Tab ER] 10 meq PO DAILY #30 tablet.er 11/15/18 [Rx] Acetaminophen [Tylenol] 500 mg PO DAILY PRN 12/30/18 [History] Prochlorperazine Maleate [Compazine] 10 mg PO Q8HR PRN 12/30/18 [History] Allergy/AdvReac Type Severity Reaction Status Date / Time adhesive tape Allergy Rash, itch Verified 12/30/18 18:41 All Systems Review: The remainder of the systems were reviewed and are negative - Constitutional Constitutional: weakness - Cardiovascular Cardiovascular: as per HPI, dyspnea at rest - Respiratory Respiratory: dyspnea Physical Examination Vital Signs Temp Pulse Resp BP Pulse Ox 12/30/18 06:58 166 22 142/109 73 12/30/18 06:49 98.4 F 125 14 138/88 96 12/30/18 04:46 98.2 F 123 18 133/67 90 12/29/18 23:03 98.2 F 113 17 106/67 91 12/29/18 21:04 121 17 112/61 96 12/29/18 20:00 125 17 106/64 94 12/29/18 18:42 132 22 124/65 93 12/29/18 18:22 132 18 113/65 96 12/29/18 18:00 142 20 116/56 96 12/29/18 17:27 154 18 92/57 95 12/29/18 16:54 97.5 F L 78 20 83/52 96 Intake and Output 12/29/18 12/30/18 12/30/18 23:59 07:59 15:59 Intake Total 1900 / 1900 1000 / 1074 74 / 1074 Output Total 0 / 0 250 / 850 600 / 850 Balance 1900 / 1900 750 / 224 -526 / 224 Intake: IV Fluids 1900 / 1900 1000 / 1074 74 / 1074 0.9 % Sodium Chloride 1,000 ML 1300 / 1300 1000 / 1000 @ 999 mls/hr IVC .Q1H1M [facility] Rx# :[id number] 0.9 % Sodium Chloride 500 ML @ 500 / 500 999 mls/hr IVC .Q31M ONE Rx#: [id number] Heparin 25,000 UNIT/250 ML D5W 74 / 74 25,000 unit In 250 ml @ 14 UNIT /KG/HR 12.124 mls/hr IVC . [id number] [facility] Rx#:[id number] Zosyn 3.375 GM In 0.9 % Sodium 100 / 100 Chloride (Mini-Bag +) 100 ML @ 25 mls/hr IVPB ONCE ONE Rx#: [id number] Oral 0 / 0 0 / 0 0 / 0 Output: Urine 0 / 0 250 / 850 600 / 850 Other: Meal Breakfast Percent of Meal Consumed 0% Stool Size Small Stool Consistency loose Stool Color Brown # Bowel Movements 1 Weight 86.6 kg 86.9 kg Patient Weight 12/30/18 23:59 Weight 86.9 kg General: Conversant, No Apparent Distress HEENT: Atraumatic, Normocephaly, Mucus Membranes Moist Neck: No JVD, Normal carotid pulses Cardiac: Other (irregularly irregular rhythm) Lungs: Other (diminished) Neuro: Alert and responsive, No focal deficits noted Abdomen: Soft, Non-Tender Skin: No rashes noted on visualized skin Musculoskeletal: No Chest Wall Tenderness Extremities: No Clubbing, No Cyanosis, No Edema, Normal Pulses Results 12/30/18 03:35 12/30/18 03:35 Lab Results 12/29/18 12/29/18 12/29/18 17:03 17:03 20:54 WBC 11.3 H Hgb 11.7 Hct 35.5 Plt Count 481 H INR Sodium 135 L Potassium 3.1 L Chloride 97 L Carbon Dioxide 18 L BUN 33 H Creatinine 2.14 H Glucose 159 H Calcium 9.5 Magnesium 1.7 Total Bilirubin 0.5 AST 15 ALT 17 Alkaline Phosphatase 55 Troponin I 0.19 H* 0.12 H* 12/30/18 12/30/18 12/30/18 03:35 03:35 03:35 WBC 9.2 Hgb 9.5 L D Hct 28.6 L Plt Count 365 INR 1.2 Sodium 137 Potassium 2.8 L Chloride 108 H Carbon Dioxide 19 L BUN 35 H Creatinine 1.29 H Glucose 94 Calcium 8.1 L Magnesium 1.6 Total Bilirubin AST ALT Alkaline Phosphatase Troponin I 0.12 H* 12/30/18 09:13 WBC Hgb Hct Plt Count INR Sodium Potassium Chloride Carbon Dioxide BUN Creatinine Glucose Calcium Magnesium Total Bilirubin AST ALT Alkaline Phosphatase Troponin I 0.15 H* Short CBC 12/30/18 12/29/18 Range/Units 03:35 17:03 WBC 9.2 11.3 H (4.3-11.1) K/mcL Hgb 9.5 L D 11.7 (11.5-15.4) g/dL Hct 28.6 L 35.5 (35.3-44.9) % Plt Count 365 481 H (140-400) K/mcL Neutrophils # 9.5 H (1.6-8.9) K/mcL BMP 12/30/18 12/29/18 Range/Units 03:35 17:03 Sodium 137 135 L (136-145) mEq/L Potassium 2.8 L 3.1 L (3.5-5.1) mEq/L Chloride 108 H 97 L (98-107) mEq/L Carbon Dioxide 19 L 18 L (23-29) mEq/L BUN 35 H 33 H (8-23) mg/dL Creatinine 1.29 H 2.14 H (0.60-1.20) mg/dL Glucose 94 159 H (70-105) mg/dL Calcium 8.1 L 9.5 (8.6-10.3) mg/dL Cardiac Enzymes 12/30/18 12/30/18 12/29/18 Range/Units 09:13 03:35 20:54 Troponin I 0.15 H* 0.12 H* 0.12 H* (< 0.04) ng/mL 12/29/18 Range/Units 17:03 Troponin I 0.19 H* (< 0.04) ng/mL Liver Function 12/29/18 Range/Units 17:03 Total Bilirubin 0.5 (0.3-1.0) mg/dL Direct Bilirubin 0.0 (0.0-0.2) mg/dL AST 15 (13-39) Units/L ALT 17 (7-52) Units/L Alkaline Phosphatase 55 (34-104) Units/L Albumin 3.6 (3.5-5.7) g/dL Urine 12/29/18 Range/Units 18:15 Urine Color Yellow (Yellow) Urine Clarity Clear (Clear) Urine pH 7.5 (5.0-8.0) pH Units Ur Specific Ballinger 1.020 (1.010-1.025) Urine Protein 100 H (Neg-Trace) mg/dL Urine Glucose (UA) Normal (Normal) mg/dL Impressions Chest X-Ray 12/29/18 17:02 IMPRESSION: 1. Cardiomegaly with mild vascular congestion. D/ / Trev Myles MD / Trev Myles MD Interpreting Provider: Trev Myles MD Abdomen/Pelvis CT 12/29/18 18:46 IMPRESSION: Fluid is seen within the lumen of the colon, in keeping with patient's history of diarrhea. Patchy heterogeneous and ground-glass opacity bilaterally, suggestive of pneumonitis with regions of air trapping. Mild induration of fat anterior to the bladder. If there is clinical question of cystitis, suggest correlation with urinalysis. D/ / Harsh Jones MD / Harsh Jones MD Interpreting Provider: Harsh Jones MD Chest CT 12/29/18 18:46 IMPRESSION: Fluid is seen within the lumen of the colon, in keeping with patient's history of diarrhea. Patchy heterogeneous and ground-glass opacity bilaterally, suggestive of pneumonitis with regions of air trapping. Mild induration of fat anterior to the bladder. If there is clinical question of cystitis, suggest correlation with urinalysis. D/ / Harsh Jones MD / Harsh Jones MD Interpreting Provider: Harsh Jones MD Echocardiogram 12/30/18 04:04 Impressions: Technically challenging exam due to heart rate. Atrial fibrillation with elevated heart rate as high as 179bpm. LV systolic function grossly appears normal. Indeterminate diastolic function. Normal right ventricular structure with hyperdynamic function. Mild mitral regurgitation. Mildly sclerotic aortic valve leaflets. Mild aortic regurgitation. Mild tricuspid regurgitation. Mild pulmonic regurgitation. Moderate pulmonary hypertension. Left Ventricular Wall Motion: Rest Echo Findings All wall segments showed normal motion. Findings: Study Quality * Technically challenging exam due to heart rate. ECG Findings * Atrial fibrillation with elevated heart rate. Left Ventricle * LV systolic function grossly appears normal. * Indeterminate diastolic function. * LV chamber size and wall thickness measurements are normal. Right Ventricle * Normal right ventricular structure with hyperdynamic function. Left Atrium * Mildly dilated left atrium by volume measurement. Right Atrium * Normal right atrial size. Mitral Valve * Normal mitral valve structure. * No mitral stenosis. * Mild mitral regurgitation. Aortic Valve * Trileaflet aortic valve. * Mildly sclerotic aortic valve leaflets. * Mild aortic regurgitation. * No aortic stenosis. Tricuspid Valve * Tricuspid valve not well visualized. * Mild tricuspid regurgitation. * Estimated RA pressure is 8 mmHg. * Estimated RVSP is 57 mmHg. * Moderate pulmonary hypertension. Pulmonic Valve * Pulmonic valve is not well visualized. * No pulmonic stenosis. * Mild pulmonic regurgitation. Pulmonary Artery * Pulmonary artery not well visualized. Aorta * Normally sized aortic root. Pericardium * There is no pericardial effusion present. Interatrial Septum * No evidence of PFO by color Doppler. IVC * The IVC is not dilated. * < 50% respiratory change. Active Medications Aspirin (Aspirin) 81 mg PO DAILY [facility] Stop: 07/02/19 09:01 Heparin Sodium (Porcine) (Heparin) 6,100 unit 70 unit/kg (6100 unit) IVP Q6HR PRN PRN Reason: SEE COMMENTS Stop: 07/01/19 03:05 Heparin Sodium (Porcine) (Heparin) 3,000 unit 35 unit/kg (3000 unit) IVP Q6H PRN PRN Reason: SEE COMMENTS Stop: 07/01/19 03:05 Heparin Sodium/Dextrose (Heparin 25,000 Unit/250 Ml D5w) 25,000 unit in 250 mls @ 12.124 mls/hr IVC .[id number] [facility]; Protocol Stop: 07/01/19 03:16 Last Titration: 12/30/18 10:15 Dose: 0 unit/kg/hr, 0 mls/hr Documented by: Piperacillin Sod/Tazobactam (Sod 3.375 gm/ Sodium Chloride) 100 mls @ 25 mls/hr IVPB Q8HR [facility] Stop: 07/01/19 08:01 Last Admin: 12/30/18 09:50 Dose: 25 mls/hr Documented by: Vancomycin HCl 1,000 mg/ (Sodium Chloride) 250 mls @ 167 mls/hr IVPB Q24H [facility]; Protocol Stop: 02/07/20 21:01 Diltiazem HCl 50 mg/ Sodium (Chloride) 50 mls @ 5 mls/hr IVC CONT [facility]; Protocol Stop: 07/01/19 07:31 Last Admin: 12/30/18 09:15 Dose: 17.5 mg/hr, 17.5 mls/hr Documented by: Metoprolol Tartrate (Lopressor) 5 mg IVP Q5M PRN PRN Reason: Heart Rate- High Stop: 07/01/19 08:46 Last Admin: 12/30/18 09:06 Dose: 5 mg Documented by: Metoprolol Tartrate (Lopressor) 25 mg PO BID [facility] Stop: 07/01/19 09:16 Last Admin: 12/30/18 10:00 Dose: 25 mg Documented by: Naloxone HCl (Narcan) 0.4 mg IVP Q2MPRN PRN PRN Reason: SEE COMMENTS Stop: 07/01/19 02:04 - Imaging and Cardiology Echo: report reviewed - EKG Interpretation EKG results cardiology: personally reviewed (A-Fib RVR), other (12 hr tele AVG HR 129, A-Fib.) Consult Discharge Plan - Plan Referrals: Israel Green Jr, MD [Primary Care Provider] - <Jason Schwab - Last Filed: 12/30/18 20:37> Date of Encounter: 12/30/18 - Attending Attestation Patient was seen and evaluated independently by me. Findings, assessment and plan were discussed at length with patient, questions answered. Agree with nurse practitioner's/resident's documentation. Addition as follows, 68yoCF ho breast Ca last chemo 2 wks ago, HTN, hypothyroidism, p/w fever, hypotension, leukocytosis. Consulted for new AFib with RVR, hypoxemia after IVF for hypotension. Rate ctr ok on dilt and BB. Trop peak 0.2. Preserved LVEF, nl RV, mild MR/AR/TR/MD with moderate PH on TTE. RONNIE improved after IVF. A: Afib RVR, new diagnosis, C score 3 Profound hypoxemia with respiratory distress, ? early ARDS vs PE Severe SIRS, sepsis, GI source or PNA, 2 wks post-chemo for breast Ca RONNIE P: c/w heparin drip wane off dilt drip, up on BB and consider digoxin iv given sepsis avoid fluid overload, may need short-term alpha agonist may need BiPAP, intubation Jason Schwab MD, PhD Assessment and Plan Discussion w patient/family: The assessment and plan as outlined above was discussed with the patient and/or family members who expressed understanding and agreement. All questions were answered. Thank you for involving us in the care of your patient. Please call with any questions. History of Present Illness History of present illness: Ms. Umanzor is a 68 year old female All Systems Review: The remainder of the systems were reviewed and are negative Physical Examination Vital Signs, Last 4 Hours Temp Pulse Resp BP Pulse Ox 12/30/18 19:07 98.6 F 124 20 124/76 88 Results 12/30/18 11:33 12/30/18 03:35 Lab Results 12/29/18 12/30/18 12/30/18 20:54 03:35 03:35 WBC 9.2 Hgb 9.5 L D Hct 28.6 L Plt Count 365 INR Sodium 137 Potassium 2.8 L Chloride 108 H Carbon Dioxide 19 L BUN 35 H Creatinine 1.29 H Glucose 94 Calcium 8.1 L Magnesium 1.6 Troponin I 0.12 H* 0.12 H* 12/30/18 12/30/18 12/30/18 03:35 09:13 11:33 WBC 16.9 H D Hgb 10.4 L Hct 31.6 L Plt Count 450 H INR 1.2 Sodium Potassium Chloride Carbon Dioxide BUN Creatinine Glucose Calcium Magnesium Troponin I 0.15 H*
[2018-12-30] MEDS ORDERED: Potassium Chloride 40 MEQ, Lidocaine 1% 2 ML in D5% in Water 500 ML IVPB ONE (11:28)
[2018-12-30 11:46] LABS: Basophils # 0.1 K/mcL (0.0-0.2); Basophils % 0.5 %; Eosinophils # 0.1 K/mcL (0.0-0.6); Eosinophils % 0.5 %; Hematocrit 31.6 % (35.3-44.9); Hemoglobin 10.4 g/dL (11.5-15.4); Immature Granulocytes % 0.9 % (0-4); Lymphocytes % 5.6 %; Mean Corpuscular HGB Conc 32.9 g/dL (31.6-35.5); Mean Corpuscular Hemoglobin 31.2 pg (28.0-33.3); Mean Corpuscular Volume 94.9 fL (83.0-100.0); Mean Platelet Volume 9.1 fL (9.4-12.4); Monocytes # 1.3 K/mcL (0.0-1.3); Monocytes % 7.6 %; Platelet Count 450 K/mcL (140-400); Red Blood Count 3.33 M/mcL (3.82-4.97); Red Cell Distribution Width 13.7 % (11.5-14.5); Segmented Neutrophils % 84.9 %
[2018-12-30 11:48] LABS: Neutrophils # 14.4 K/mcL (1.6-8.9); White Blood Count 16.9 K/mcL (4.3-11.1)
[2018-12-30] MEDS ORDERED: Isovue-370 500 ML BOTTLE IVP ONE (15:23)
--- NOTE | 2018-12-30 15:31 | Electrocardiograph Report ---
[place] [address] Test Date: 2018-12-30 Pat Name: Shirley Umanzor Department: 111 Room: 2N13 Gender: F Guard Chief: : 1950 Requested By: Harsh Ziegler Order Number: [id number] Reading MD: Navid Naqvi Measurements Intervals [place] Rate: 125 P: [place]: 0 QRS: -25 QRSD: 101 T: 93 QT: 329 QTc: 403 Interpretive Statements ATRIAL FIBRILLATION WITH RAPID VENTRICULAR RESPONSE BORDERLINE LEFT AXIS DEVIATION MODERATE VOLTAGE CRITERIA FOR LVH, CONSIDER NORMAL VARIANT NONSPECIFIC ST & T-WAVE ABNORMALITY Electronically Signed On 12-30-2018 15:30:09 EDT by Navid Naqvi
--- NOTE | 2018-12-30 15:32 | Event Note ---
Date of Encounter: 12/30/18 Time of Encounter: 08:30 Patient was in A. fib RVR at 138/minute on monitor. It went up to 179/m while the patient was having her echo. She was complaining of dyspnea but no chest pain. On examination patient had irregular heart rhythm on auscultation and very fine crepitation on both sides of lungs which could be early development of pulmonary edema. No extremity edema. She had been given diltiazem 20 mg IV and a diltiazem drip had not yet arrived to the floor. She was on high flow oxygen per mask. Give patient 5 mg of IV metoprolol which brought the artery down to around 112/m. This was followed by 20 mg of IV Lasix. The patient started to feel better. While waiting for diltiazem Metoprolol was again repeated and the heart rate came down to 100/m. Diltiazem drip eventually started and titrated from 10 mg/h to 17.5 mg per hour the patient's heart rate stayed between 97 and 105/m at this point metoprolol was repeated again and the heart rate came down into the mid 90s. Patient's saturation improved from 92% to 96%. Finally diltiazem was raised to 17.5 mg per hour in an attempt to bring the patient's heart rate into the 80s which finally happened. Await cardiology input and echocardiogram results. Troponin reported as 0.17. Patient had received aspirin 324 mg last night. Will start on 81 mg of aspirin every day. Patient will continue on heparin IV for now for stroke prevention. Nuclear medicine VQ scan was canceled due to patient being on re breather mask. Once patient is stable and kidney function allows will obtain a CTA. Possibly need repeat limited echo for EF. Critical time spent 45 minutes.
[2018-12-30] MEDS ORDERED: Doxycycline 100 MG in 0.9 % Sodium Chloride Mini Bag 100 ML IVPB SCH (16:00)
[2018-12-30] MEDS: Doxycycline 100 MG in 0.9 % Sodium Chloride Mini Bag 100 ML IVPB SCH (20:36)
--- NOTE | 2018-12-31 03:24 | Electrocardiograph Report ---
[facility] Test Date: 2018-12-29 Pat Name: Shirley Umanzor Department: [id number] Room: 2N13 Gender: F Veterans Services Specialist: : 1950 Requested By: Candelario Ortega Order Number: [id number] Reading MD: Kevin Bowie Measurements Intervals [place] Rate: 147 P: 236 [place]: 83 QRS: -23 QRSD: 101 T: 108 QT: 316 QTc: 465 Interpretive Statements Sinus Tachycardia Multiple premature complexes, vent & supraven Electronically Signed On 12-31-2018 3:22:55 EDT by Kevin Bowie
--- NOTE | 2018-12-31 03:27 | Electrocardiograph Report ---
[place] [facility] Test Date: 2018-12-29 Pat Name: Shirley Umanzor Department: [id number] Room: 2N13 Gender: F Lathe Machine Operator: : 1950 Requested By: Diza Ruffin Order Number: [id number] Reading MD: Kevin Bowie Measurements Intervals [place] Rate: 142 P: 0 [place]: 101 QRS: -22 QRSD: 99 T: 113 QT: 312 QTc: 480 Interpretive Statements Supraventricular tachycardia Paired ventricular premature complexes Electronically Signed On 12-31-2018 3:25:41 EDT by Kevin Bowie
[2018-12-31] MEDS: Aspirin 81 MG TAB.CHEW PO SCH (09:01)
[2018-12-31 10:04] LABS: Hemoglobin 9.8 g/dL (11.5-15.4); Mean Corpuscular HGB Conc 32.7 g/dL (31.6-35.5); Mean Corpuscular Hemoglobin 30.5 pg (28.0-33.3); Mean Corpuscular Volume 93.5 fL (83.0-100.0); Mean Platelet Volume 9.7 fL (9.4-12.4); Platelet Count 453 K/mcL (140-400); Red Blood Count 3.21 M/mcL (3.82-4.97); Red Cell Distribution Width 13.7 % (11.5-14.5); Segmented Neutrophils % 82.8 %; White Blood Count 15.1 K/mcL (4.3-11.1)
[2018-12-31 10:05] LABS: Basophils # 0.1 K/mcL (0.0-0.2); Basophils % 0.6 %; Eosinophils # 0.2 K/mcL (0.0-0.6); Eosinophils % 1.1 %; Lymphocytes # 1.1 K/mcL (0.6-4.6); Monocytes # 1.1 K/mcL (0.0-1.3); Monocytes % 7.5 %; Neutrophils # 12.5 K/mcL (1.6-8.9); Nucleated Red Blood Cells 0.1 /100 WBC (0)
--- NOTE | 2018-12-31 11:52 | Cardiology Progress Note ---
Date of Encounter: 12/31/18 Time of Encounter: 11:50 Assessment and Plan (1) Atrial fibrillation Current Visit: Yes Status: Acute New diagnosis of A-Fib. Presented with weakness--found to have RONNIE, troponin elevation and A-Fib RVR. Chest CT suggestive for pneumonitis. Currently on cardizem gtt at 7.5mg/hr, Lopressor PO 25mg BID. HR better controlled today, currently low 100s. 12 hr tele AVG HR 93, A-Fib. TTE LV systolic function grossly appears normal. Normal RV structure with hyperdynamic function. Mild MR. Mildly sclerotic AV leaflets. Mild AR. Mild TR. Mild MT. Moderate phtn. K 3.0--replace. Check TSH. Will continue with rate control strategy. [id number] 3 (Age, Female, HTN). Currrently on heparin gtt. HGB 11.7 on admission--then 9.5, 10.4, 9.8. Currently stable. Will continue heparin gtt for now and determine AC prior to d/c. Will banda check NOAC. CTA has been ordered by primary team for further evaluation. If continues to be rate controlled on current cardizem gtt, will attempt to transition to PO Cardizem tomorrow. Qualifiers: Atrial fibrillation type: unspecified Qualified Code(s): I48.91 - Unspecified atrial fibrillation (2) Elevated troponin Current Visit: Yes Status: Acute Troponin 0.19, 0.12, 0.12, 0.15 in setting of RONNIE, A-Fib RVR, pneumonitis. Suspect demand ischemia, nondiagnostic for ACS. Pt denies chest pain. TTE EF preserved. Discussion w patient/family: The assessment and plan as outlined above was discussed with the patient and/or family members who expressed understanding and agreement. All questions were answered. Thank you for involving us in the care of your patient. Please call with any questions. I will discuss all the above with Dr. Schwab and make changes as necessary. Subjective Principal diagnosis: A-Fib RVR, sepsis Interval history: Pt reports feeling much better today. Denies acute cardiac complaints. Objective Vital Signs, Last 4 Hours Temp Pulse Resp BP Pulse Ox 12/31/18 11:15 98.5 F 98 18 109/68 96 Vital Signs Temp Pulse Resp BP Pulse Ox 12/31/18 11:15 98.5 F 98 18 109/68 96 12/31/18 07:29 98.5 F 124 18 133/60 97 12/31/18 06:00 91 93/64 12/31/18 05:00 91 92/61 12/31/18 04:00 87 110/67 12/31/18 03:53 98.9 F 91 21 85/54 99 12/31/18 03:00 91 88/46 12/31/18 02:00 90 93/52 12/31/18 01:00 93 95/48 12/31/18 00:31 101.1 F H 80 22 94/63 99 12/31/18 00:00 87 101/55 12/30/18 23:00 93 124/72 12/30/18 22:00 89 108/67 12/30/18 21:00 98 122/69 12/30/18 20:54 99 12/30/18 20:00 99 116/75 12/30/18 19:07 98.6 F 124 20 124/76 88 12/30/18 19:00 96 18 94 12/30/18 18:00 95 20 124/76 94 12/30/18 17:00 90 18 113/64 91 12/30/18 16:11 98.1 F 77 18 110/64 92 12/30/18 16:00 93 20 110/64 90 12/30/18 15:00 89 20 102/75 88 12/30/18 14:00 89 20 108/68 93 12/30/18 12:00 98.3 F 86 14 114/69 95 Intake and Output 12/30/18 12/31/18 12/31/18 23:59 07:59 15:59 Intake Total 576 / 1850 50 / 290 240 / 290 Output Total 300 / 1150 Balance 276 / 700 50 / 290 240 / 290 Intake: IV Fluids 576 / 1850 50 / 50 Cardizem 50 MG In 0.9 % Sodium 50 / 150 50 / 50 Chloride 40 ML @ 5 MG/HR 5 mls/ hr IVC CONT [facility] Rx#:[id number] Heparin 25,000 UNIT/250 ML D5W 76 / 150 0 / 0 25,000 unit In 250 ml @ 14 UNIT /KG/HR 12.124 mls/hr IVC . [id number] [facility] Rx#:[id number] Doxycycline 100 MG In 0.9 % 100 / 100 Sodium Chloride (Mini-Bag +) 100 ML @ 100 mls/hr IVPB Q12H [facility] Rx#:[id number] Zosyn 3.375 GM In 0.9 % Sodium 100 / 200 Chloride (Mini-Bag +) 100 ML @ 25 mls/hr IVPB Q8HR [facility] Rx#: [id number] Vancocin 1,000 MG In 0.9 % 250 / 250 Sodium Chloride 250 ML @ 167 mls/hr IVPB Q24H [facility] Rx#: [id number] Oral 240 / 240 Output: Urine 300 / 1150 Other: Meal Breakfast Percent of Meal Consumed 50% Weight 86.5 kg Patient Weight 12/31/18 23:59 Weight 86.5 kg General: Conversant, No Apparent Distress HEENT: Atraumatic, Normocephaly, Mucus Membranes Moist Neck: No JVD, Normal carotid pulses Cardiac: Other (irregularly irregular rhythm) Lungs: Normal Breath Sounds, No Wheeze, Rales, Rhonchi Neuro: Alert and responsive, No focal deficits noted Abdomen: Soft, Non-Tender Skin: No rashes noted on visualized skin Musculoskeletal: No Chest Wall Tenderness Extremities: No Clubbing, No Cyanosis, No Edema, Normal Pulses Results 12/31/18 09:41 12/31/18 09:41 Lab Results 12/31/18 12/31/18 12/31/18 09:41 09:41 09:41 WBC 15.1 H Hgb 9.8 L Hct 30.0 L Plt Count 453 H Sodium 138 Potassium 3.0 L Chloride 105 Carbon Dioxide 18 L BUN 26 H Creatinine 1.19 Glucose 119 H Calcium 9.0 Magnesium 1.8 Short CBC 12/31/18 Range/Units 09:41 WBC 15.1 H (4.3-11.1) K/mcL Hgb 9.8 L (11.5-15.4) g/dL Hct 30.0 L (35.3-44.9) % Plt Count 453 H (140-400) K/mcL Neutrophils # 12.5 H (1.6-8.9) K/mcL BMP 12/31/18 Range/Units 09:41 Sodium 138 (136-145) mEq/L Potassium 3.0 L (3.5-5.1) mEq/L Chloride 105 (98-107) mEq/L Carbon Dioxide 18 L (23-29) mEq/L BUN 26 H (8-23) mg/dL Creatinine 1.19 (0.60-1.20) mg/dL Glucose 119 H (70-105) mg/dL Calcium 9.0 (8.6-10.3) mg/dL Active Medications Aspirin (Aspirin) 81 mg PO DAILY [facility] Stop: 07/02/19 09:01 Last Admin: 12/31/18 09:01 Dose: 81 mg Documented by: Heparin Sodium (Porcine) (Heparin) 6,100 unit 70 unit/kg (6100 unit) IVP Q6HR PRN PRN Reason: SEE COMMENTS Stop: 07/01/19 03:05 Heparin Sodium (Porcine) (Heparin) 3,000 unit 35 unit/kg (3000 unit) IVP Q6H PRN PRN Reason: SEE COMMENTS Stop: 07/01/19 03:05 Heparin Sodium/Dextrose (Heparin 25,000 Unit/250 Ml D5w) 25,000 unit in 250 mls @ 12.124 mls/hr IVC .[id number] [facility]; Protocol Stop: 07/01/19 03:16 Last Titration: 12/31/18 02:27 Dose: 10.97 unit/kg/hr, 9.5 mls/hr Documented by: Piperacillin Sod/Tazobactam (Sod 3.375 gm/ Sodium Chloride) 100 mls @ 25 mls/hr IVPB Q8HR [facility] Stop: 07/01/19 08:01 Last Admin: 12/30/18 23:25 Dose: 25 mls/hr Documented by: Vancomycin HCl 1,000 mg/ (Sodium Chloride) 250 mls @ 167 mls/hr IVPB Q24H [facility]; Protocol Stop: 07/01/19 21:01 Last Infusion: 12/30/18 22:21 Dose: Infused Documented by: Diltiazem HCl 50 mg/ Sodium (Chloride) 50 mls @ 5 mls/hr IVC CONT [facility]; Protocol Stop: 07/01/19 07:31 Last Admin: 12/31/18 02:51 Dose: 7.5 mg/hr, 7.5 mls/hr Documented by: Doxycycline Hyclate 100 mg/ (Sodium Chloride) 100 mls @ 100 mls/hr IVPB Q12H [facility] Stop: 07/01/19 20:01 Last Infusion: 12/30/18 22:20 Dose: Infused Documented by: Metoprolol Tartrate (Lopressor) 5 mg IVP Q5M PRN PRN Reason: Heart Rate- High Stop: 07/01/19 08:46 Last Admin: 12/30/18 09:06 Dose: 5 mg Documented by: Metoprolol Tartrate (Lopressor) 25 mg PO BID [facility] Stop: 07/01/19 09:16 Last Admin: 12/31/18 09:01 Dose: 25 mg Documented by: Naloxone HCl (Narcan) 0.4 mg IVP Q2MPRN PRN PRN Reason: SEE COMMENTS Stop: 07/01/19 02:04 - Imaging and Cardiology Echo: report reviewed - EKG Interpretation EKG results cardiology: other (12 hr tele AVG HR 93, A-Fib) Consult Discharge Plan - Plan Referrals: Israel Green Jr, MD [Primary Care Provider] - 01/10/19 12:00 pm
[2018-12-31] MEDS: Doxycycline 100 MG in 0.9 % Sodium Chloride Mini Bag 100 ML IVPB SCH ×2 (12:05→21:29)
[2018-12-31] MEDS: Piperacillin/Tazobactam 3.375 GM in 0.9 % Sodium Chloride Mini Bag 100 ML IVPB SCH ×2 (13:00→14:49)
--- NOTE | 2018-12-31 14:51 | Internal Med Progress Note ---
Hospitalist Progress Note - Encounter Date of Encounter: 12/31/18 Time of Encounter: 09:15 - Subjective Interval History: Patient developed Afib with RVR and was started on a cardizem drip and heparin. She currently has no symptoms. She denies palpitations shortness of breath and chest pain - Exam Vitals: Temp Pulse Resp BP Pulse Ox 36.9 C 98 18 109/68 96 12/31/18 11:15 12/31/18 11:15 12/31/18 11:15 12/31/18 11:15 12/31/18 11:15 Exam: GENERAL: Not in distress. Alert and Oriented HEENT: EOMI, PERRLA MOUTH: MOist oral mucosA NECK:No JVD, No lymph nodes. CHEST AND LUNGS: Normal breath sounds, no wheezes or crackles. cURRENTLY ON ino2 AT 8L/MIN HEART: S1 and S2 normal, no murmurs ABDOMEN: Soft, nontender, no organomegaly SKIN: Normal color, no rahses, no lesions EXTREMITIES: No deformity, no edema, no tenderness, no joint swelling or clubbing NEUROLOGICAL: Normal cognition, normal motor and sensory exam. - - Assessment and Plan (1) Pulmonary embolism Current Visit: Yes Status: Acute Assessment and Plan: Patient had a CT angiogram done today She has a subsegmental PE in the right lower lobe Evidence of right ventricular strain She is currently on a heparin drip We plan to start her on a NOAC to cover PE and A. fib (2) Atrial fibrillation Current Visit: Yes Status: Acute Assessment and Plan: Pulse in low 100s at time of encounter Continue Cardizem drip and heparin Continue Lopressor 25 mg bid Cardiology on board the intend to switch to by mouth Cardizem if her heart rate remains controlled Patient will benefit from anticoagulation since her CHADVasc Score is 3 (3) Breast cancer Current Visit: Yes Status: Acute Assessment and Plan: Management per oncology team (4) Acute renal insufficiency Current Visit: Yes Status: Acute Assessment and Plan: Creatinine has normalized Continue gentle hydration (5) Pneumonitis Current Visit: Yes Status: Acute Assessment and Plan: As seen on CT of the chest. No growth on blood cultures yet Continue IV antibiotics Monitor for worsening signs of infection. (6) DVT prophylaxis Current Visit: Yes Status: Acute Assessment and Plan: Heparin drip (7) Hypokalemia Current Visit: Yes Status: Acute Assessment and Plan: Potassium 3.0 today. Will replace - Time Spent with Patient Total time spent is greater than 50% in coordination of care (as documented) at patient's floor/unit and/or counseling patient: Internal Medicine: Result - Labs CBC & Chem 7: 12/31/18 09:41 12/31/18 09:41 Labs: Short CBC 12/31/18 Range/Units 09:41 WBC 15.1 H (4.3-11.1) K/mcL Hgb 9.8 L (11.5-15.4) g/dL Hct 30.0 L (35.3-44.9) % Plt Count 453 H (140-400) K/mcL Neutrophils # 12.5 H (1.6-8.9) K/mcL BMP 12/31/18 09:41 Sodium 138 Potassium 3.0 L Chloride 105 Carbon Dioxide 18 L BUN 26 H Creatinine 1.19 Glucose 119 H Calcium 9.0 - ABG Interpretation ABG results: PT/INR, D-dimer PT 13.2 Seconds (9.4-12.1) H 12/30/18 03:35 - Impressions Impressions Chest CTA 12/31/18 15:23 IMPRESSION: 1. Acute appearing subsegmental pulmonary embolus in a right lower lobe pulmonary artery branch. No findings of associated right heart strain. Critical results were called by Dr. Khadar Wilcox MD to Sandor Andrews MD on 12/31/2018 at 12:54. 2. Increased consolidative and groundglass opacities in the lungs with some basilar predominant interlobular septal thickening areas of suspected air trapping, resulting in a so-called "crazy paving" appearance. Edema in the setting of congestive heart failure is favored given mild cardiomegaly and new bilateral pleural effusions. Other etiologies including pneumonia, treatment related alveolitis, alveolar hemorrhage, or alveolar proteinosis could result in a similar appearance. D/ / Khadra Wilcox MD / Khadar Wilcox MD Interpreting Provider: Khadar Wilcox MD Consult Discharge Plan - Plan Referrals: Israel Green Jr, MD [Primary Care Provider] - 08/19/19 12:00 pm (2) Atrial fibrillation Qualifiers: Atrial fibrillation type: unspecified Qualified Code(s): I48.91 - Unspecified atrial fibrillation (3) Breast cancer Qualifiers: Breast location: unspecified site of breast Estrogen receptor status: unspecified Patient sex: female Laterality: unspecified laterality Qualified Code(s): C50.919 - Malignant neoplasm of unspecified site of unspecified female breast
[2019-01-01] MEDS: Heparin 25,000 UNIT/250 ML D5W 25,000 UNIT/250 ML IV.SOLN IVC SCH ×2 (06:35→13:45)
[2019-01-01 07:29] LABS: Basophils # 0.1 K/mcL (0.0-0.2); Basophils % 0.6 %; Eosinophils # 0.3 K/mcL (0.0-0.6); Eosinophils % 2.8 %; Hematocrit 25.9 % (35.3-44.9); Hemoglobin 8.6 g/dL (11.5-15.4); Immature Granulocytes % 1.8 % (0-4); Lymphocytes # 1.4 K/mcL (0.6-4.6); Lymphocytes % 12.1 %; Mean Corpuscular HGB Conc 33.2 g/dL (31.6-35.5); Mean Corpuscular Hemoglobin 31.4 pg (28.0-33.3); Mean Corpuscular Volume 94.5 fL (83.0-100.0); Mean Platelet Volume 9.2 fL (9.4-12.4); Monocytes % 8.5 %; Neutrophils # 8.5 K/mcL (1.6-8.9); Platelet Count 384 K/mcL (140-400); Red Blood Count 2.74 M/mcL (3.82-4.97); Red Cell Distribution Width 14.1 % (11.5-14.5); Segmented Neutrophils % 74.2 %; White Blood Count 11.4 K/mcL (4.3-11.1)
[2019-01-01] MEDS: Piperacillin/Tazobactam 3.375 GM in 0.9 % Sodium Chloride Mini Bag 100 ML IVPB SCH ×3 (07:42→15:41)
[2019-01-01 07:45] LABS: BUN/Creatinine Ratio 29 (6-26); Blood Urea Nitrogen 28 mg/dL (8-23); Carbon Dioxide 21 mEq/L (23-29); Chloride 107 mEq/L (98-107); Glucose 104 mg/dL (70-105); Osmolality,Calculated 292 (280-300); Potassium 3.3 mEq/L (3.5-5.1); Sodium 138 mEq/L (136-145); eGFR For African Americans > 60 (> 60); eGFR For Non-African Americans 56 (> 60)
[2019-01-01] MEDS: Doxycycline 100 MG in 0.9 % Sodium Chloride Mini Bag 100 ML IVPB SCH ×2 (08:10→19:47)
[2019-01-01] MEDS: Aspirin 81 MG TAB.CHEW PO SCH (08:10)
--- NOTE | 2019-01-01 08:34 | Cardiology Progress Note ---
Date of Encounter: 01/01/19 Time of Encounter: 08:28 Assessment and Plan (1) Atrial fibrillation Current Visit: Yes Status: Acute New diagnosis of A-Fib. Chest CT suggestive for pneumonitis. CTA with subsegmental PE. TTE LV systolic function grossly appears normal. Normal RV structure with hyperdynamic function. Mild MR. Mildly sclerotic AV leaflets. Mild AR. Mild TR. Mild IN. Moderate phtn. K 3.3--replace. TSH nml. Currently on cardizem gtt at 10mg/hr, Lopressor PO 25mg BID. Will increase Lopressor to 50mg BID. 12 hr tele AVG HR 120. Will re-evaluate midday and if rate controlled, will transition to PO Cardizem. [id number] 3 (Age, Female, HTN). Currrently on heparin gtt and with PE. HGB 11.7 on admission--then 9.5, 10.4, 9.8, 8.6--downtrending. Recommend anemia work-up per primary team. AC will be deferred to primary team given PE finding. I did banda check Eliquis--$50/month. Continue to follow until rate controlled. Qualifiers: Atrial fibrillation type: unspecified Qualified Code(s): I48.91 - Unspecified atrial fibrillation (2) Elevated troponin Current Visit: Yes Status: Acute Troponin 0.19, 0.12, 0.12, 0.15 in setting of RONNIE, A-Fib RVR, pneumonitis PE. Suspect demand ischemia, nondiagnostic for ACS. Pt denies chest pain. TTE EF preserved. Discussion w patient/family: The assessment and plan as outlined above was discussed with the patient and/or family members who expressed understanding and agreement. All questions were answered. Thank you for involving us in the care of your patient. Please call with any questions. I will discuss all the above with Dr. Schwab and make changes as necessary. Subjective Principal diagnosis: A-Fib RVR, sepsis Interval history: Pt reports feeling better today. Denies acute cardiac complaints. Objective Vital Signs, Last 4 Hours Temp Pulse Resp BP Pulse Ox 01/01/19 08:09 117 110/69 93 01/01/19 07:40 102 127/73 01/01/19 07:35 109 118/72 01/01/19 07:25 126 120/79 01/01/19 07:21 122 111/86 01/01/19 07:04 98.4 F 119 18 116/69 98 Vital Signs Temp Pulse Resp BP Pulse Ox 01/01/19 08:09 117 110/69 93 01/01/19 07:40 102 127/73 01/01/19 07:35 109 118/72 01/01/19 07:25 126 120/79 01/01/19 07:21 122 111/86 01/01/19 07:04 98.4 F 119 18 116/69 98 01/01/19 03:01 98.5 F 116 18 133/70 90 12/31/18 23:08 99.1 F 129 16 112/61 94 12/31/18 19:42 99.5 F 120 16 111/79 95 12/31/18 18:00 121 17 121/66 92 12/31/18 17:00 109 17 104/69 93 12/31/18 16:11 98.4 F 107 18 105/63 96 12/31/18 16:00 98 18 109/68 98 12/31/18 14:00 101 17 108/63 98 12/31/18 13:00 104 17 91 12/31/18 12:00 111 18 91 12/31/18 11:15 98.5 F 98 18 109/68 96 12/31/18 10:00 101 18 109/68 99 12/31/18 09:00 121 18 92 Intake and Output 12/31/18 01/01/19 01/01/19 23:59 07:59 15:59 Intake Total 740 / 1380 98 / 98 Output Total 400 / 400 Balance 740 / 1380 -302 / -302 Intake: IV Fluids 500 / 900 98 / 98 Cardizem 50 MG In 0.9 % Sodium 50 / 150 98 / 98 Chloride 40 ML @ 5 MG/HR 5 mls/ hr IVC CONT [facility] Rx#:[id number] Doxycycline 100 MG In 0.9 % 100 / 200 Sodium Chloride (Mini-Bag +) 100 ML @ 100 mls/hr IVPB Q12H [facility] Rx#:[id number] Zosyn 3.375 GM In 0.9 % Sodium 100 / 200 Chloride (Mini-Bag +) 100 ML @ 25 mls/hr IVPB Q8HR [facility] Rx#: [id number] Vancocin 1,000 MG In 0.9 % 250 / 250 Sodium Chloride 250 ML @ 167 mls/hr IVPB Q24H [facility] Rx#: [id number] Oral 240 / 480 Output: Urine 400 / 400 Other: Meal Dinner Percent of Meal Consumed 95% Stool Size Small Stool Consistency liquid Stool Color Brown # Bowel Movements 1 Weight 88 kg Patient Weight 01/01/19 23:59 Weight 88 kg General: Conversant, No Apparent Distress HEENT: Atraumatic, Normocephaly, Mucus Membranes Moist Neck: No JVD, Normal carotid pulses Cardiac: Other (irregularly irregular rhythm) Lungs: Other (diminished) Neuro: Alert and responsive, No focal deficits noted Abdomen: Soft, Non-Tender Skin: No rashes noted on visualized skin Musculoskeletal: No Chest Wall Tenderness Extremities: No Clubbing, No Cyanosis, No Edema, Normal Pulses Results 01/01/19 07:14 01/01/19 07:14 Lab Results 12/31/18 12/31/18 12/31/18 09:41 09:41 09:41 WBC 15.1 H Hgb 9.8 L Hct 30.0 L Plt Count 453 H Sodium 138 Potassium 3.0 L Chloride 105 Carbon Dioxide 18 L BUN 26 H Creatinine 1.19 Glucose 119 H Calcium 9.0 Magnesium 1.8 TSH 01/01/19 01/01/19 01/01/19 00:05 07:14 07:14 WBC 11.4 H Hgb 8.6 L Hct 25.9 L Plt Count 384 Sodium 138 Potassium 3.3 L Chloride 107 Carbon Dioxide 21 L BUN 28 H Creatinine 0.98 Glucose 104 Calcium 9.0 Magnesium TSH 0.896 Short CBC 01/01/19 12/31/18 Range/Units 07:14 09:41 WBC 11.4 H 15.1 H (4.3-11.1) K/mcL Hgb 8.6 L 9.8 L (11.5-15.4) g/dL Hct 25.9 L 30.0 L (35.3-44.9) % Plt Count 384 453 H (140-400) K/mcL Neutrophils # 8.5 12.5 H (1.6-8.9) K/mcL BMP 01/01/19 12/31/18 Range/Units 07:14 09:41 Sodium 138 138 (136-145) mEq/L Potassium 3.3 L 3.0 L (3.5-5.1) mEq/L Chloride 107 105 (98-107) mEq/L Carbon Dioxide 21 L 18 L (23-29) mEq/L BUN 28 H 26 H (8-23) mg/dL Creatinine 0.98 1.19 (0.60-1.20) mg/dL Glucose 104 119 H (70-105) mg/dL Calcium 9.0 9.0 (8.6-10.3) mg/dL Impressions Chest CTA 12/31/18 15:23 IMPRESSION: 1. Acute appearing subsegmental pulmonary embolus in a right lower lobe pulmonary artery branch. No findings of associated right heart strain. Critical results were called by Dr. Khadar Wilcox MD to Sandor Andrews MD on 12/31/2018 at 12:54. 2. Increased consolidative and groundglass opacities in the lungs with some basilar predominant interlobular septal thickening areas of suspected air trapping, resulting in a so-called "crazy paving" appearance. Edema in the setting of congestive heart failure is favored given mild cardiomegaly and new bilateral pleural effusions. Other etiologies including pneumonia, treatment related alveolitis, alveolar hemorrhage, or alveolar proteinosis could result in a similar appearance. D/ / Khadar Wilcox MD / Khadar Wilcox MD Interpreting Provider: Khadar Wilcox MD Active Medications Aspirin (Aspirin) 81 mg PO DAILY [facility] Stop: 07/02/19 09:01 Last Admin: 01/01/19 08:10 Dose: 81 mg Documented by: Heparin Sodium (Porcine) (Heparin) 6,100 unit 70 unit/kg (6100 unit) IVP Q6HR PRN PRN Reason: SEE COMMENTS Stop: 07/01/19 03:05 Heparin Sodium (Porcine) (Heparin) 3,000 unit 35 unit/kg (3000 unit) IVP Q6H PRN PRN Reason: SEE COMMENTS Stop: 07/01/19 03:05 Heparin Sodium/Dextrose (Heparin 25,000 Unit/250 Ml D5w) 25,000 unit in 250 mls @ 12.124 mls/hr IVC .[id number] [facility]; Protocol Stop: 07/01/19 03:16 Last Admin: 01/01/19 06:35 Dose: 12.97 unit/kg/hr, 11.2 mls/hr Documented by: Piperacillin Sod/Tazobactam (Sod 3.375 gm/ Sodium Chloride) 100 mls @ 25 mls/hr IVPB Q8HR [facility] Stop: 07/01/19 08:01 Last Admin: 01/01/19 08:21 Dose: 25 mls/hr Documented by: Vancomycin HCl 1,000 mg/ (Sodium Chloride) 250 mls @ 167 mls/hr IVPB Q24H [facility]; Protocol Stop: 07/01/19 21:01 Last Infusion: 12/31/18 23:32 Dose: Infused Documented by: Diltiazem HCl 50 mg/ Sodium (Chloride) 50 mls @ 5 mls/hr IVC CONT [facility]; Protocol Stop: 07/01/19 07:31 Last Infusion: 01/01/19 07:21 Dose: 10 mg/hr, 10 mls/hr Documented by: Doxycycline Hyclate 100 mg/ (Sodium Chloride) 100 mls @ 100 mls/hr IVPB Q12H [facility] Stop: 07/01/19 20:01 Last Admin: 01/01/19 08:10 Dose: 100 mls/hr Documented by: Metoprolol Tartrate (Lopressor) 5 mg IVP Q5M PRN PRN Reason: Heart Rate- High Stop: 07/01/19 08:46 Last Admin: 12/30/18 09:06 Dose: 5 mg Documented by: Metoprolol Tartrate (Lopressor) 50 mg PO BID [facility] Stop: 07/03/19 09:01 Last Admin: 01/01/19 08:10 Dose: 50 mg Documented by: Naloxone HCl (Narcan) 0.4 mg IVP Q2MPRN PRN PRN Reason: SEE COMMENTS Stop: 07/01/19 02:04 - Imaging and Cardiology Echo: report reviewed - EKG Interpretation EKG results cardiology: other (12 hr tele AVG HR 120, A-Fib) Consult Discharge Plan - Plan Referrals: Israel Green Jr, MD [Primary Care Provider] - 01/10/19 12:00 pm
--- NOTE | 2019-01-01 11:26 | Internal Med Progress Note ---
Hospitalist Progress Note - Encounter Date of Encounter: 01/01/19 Time of Encounter: 11:24 - Subjective Interval History: No acute events overnight. Patient states that she is getting better but not yet at her baseline. She does admit to some shortness of breath but denies palpitations and chest pain - Exam Vitals: Temp Pulse Resp BP Pulse Ox 36.9 C 110 18 107/71 93 01/01/19 07:04 01/01/19 08:44 01/01/19 07:04 01/01/19 08:44 01/01/19 08:09 Exam: GENERAL: Not in distress. Alert and Oriented HEENT: EOMI, PERRLA MOUTH: MOist oral mucosA NECK:No JVD, No lymph nodes. CHEST AND LUNGS: Normal breath sounds, no wheezes or crackles. Still on INO2 via NC HEART: S1 and S2 normal, irregular, no murmurs ABDOMEN: Soft, nontender, no organomegaly SKIN: Normal color, no rahses, no lesions EXTREMITIES: No deformity, no edema, no tenderness, no joint swelling or club lucero NEUROLOGICAL: Normal cognition, normal motor and sensory exam. - - Assessment and Plan (1) Pulmonary embolism Current Visit: Yes Status: Acute Assessment and Plan: Patient had a CT angiogram done today She has a subsegmental PE in the right lower lobe Evidence of right ventricular strain She is currently on a heparin drip We plan to start her on a NOAC to cover PE and A. fib after investigating cause of anemia. (2) Atrial fibrillation Current Visit: Yes Status: Acute Assessment and Plan: Pulse in low 100s at time of encounter Lopressor increased to 50mg bid by cardiology. Cardiology on board and intend to switch to by mouth Cardizem if her heart rate remains controlled Will continue on heparin drip for now Pateint is anemic. Will rule out bleeding as a cause of anemia before starting on oral anticoagulation. (3) Breast cancer Current Visit: Yes Status: Acute Assessment and Plan: Management per oncology team (4) Acute renal insufficiency Current Visit: Yes Status: Resolved Assessment and Plan: Creatinine has normalized and remains stable for 24 hours. Continue gentle hydration (5) Pneumonitis Current Visit: Yes Status: Acute Assessment and Plan: As seen on CT of the chest. No growth on blood cultures yet Continue IV antibiotics Monitor for worsening signs of infection. (6) DVT prophylaxis Current Visit: Yes Status: Acute Assessment and Plan: Heparin drip (7) Hypokalemia Current Visit: Yes Status: Acute Assessment and Plan: Potassium 3.3 . PO Potassium chloride 40meq ordered. - Time Spent with Patient Total time spent is greater than 50% in coordination of care (as documented) at patient's floor/unit and/or counseling patient: Internal Medicine: Result - Labs CBC & Chem 7: 01/01/19 07:14 01/01/19 07:14 Labs: Short CBC 01/01/19 Range/Units 07:14 WBC 11.4 H (4.3-11.1) K/mcL Hgb 8.6 L (11.5-15.4) g/dL Hct 25.9 L (35.3-44.9) % Plt Count 384 (140-400) K/mcL Neutrophils # 8.5 (1.6-8.9) K/mcL BMP 01/01/19 07:14 Sodium 138 Potassium 3.3 L Chloride 107 Carbon Dioxide 21 L BUN 28 H Creatinine 0.98 Glucose 104 Calcium 9.0 - ABG Interpretation ABG results: PT/INR, D-dimer PT 13.2 Seconds (9.4-12.1) H 12/30/18 03:35 - Impressions Impressions Chest CTA 12/31/18 15:23 IMPRESSION: 1. Acute appearing subsegmental pulmonary embolus in a right lower lobe pulmonary artery branch. No findings of associated right heart strain. Critical results were called by Dr. Khadar Wilcox MD to Sandor Andrews MD on 12/31/2018 at 12:54. 2. Increased consolidative and groundglass opacities in the lungs with some basilar predominant interlobular septal thickening areas of suspected air trapping, resulting in a so-called "crazy paving" appearance. Edema in the setting of congestive heart failure is favored given mild cardiomegaly and new bilateral pleural effusions. Other etiologies including pneumonia, treatment related alveolitis, alveolar hemorrhage, or alveolar proteinosis could result in a similar appearance. D/ / Khadar Wilcox MD / Khadar Wilcox MD Interpreting Provider: Khadar Wilcox MD Consult Discharge Plan - Plan Referrals: Israel Green Jr, MD [Primary Care Provider] - 01/10/19 12:00 pm (2) Atrial fibrillation Qualifiers: Atrial fibrillation type: unspecified Qualified Code(s): I48.91 - Unspecified atrial fibrillation (3) Breast cancer Qualifiers: Breast location: unspecified site of breast Estrogen receptor status: unspecified Patient sex: female Laterality: unspecified laterality Qualified Code(s): C50.919 - Malignant neoplasm of unspecified site of unspecified female breast
[2019-01-01] MEDS: Diltiazem CD (24hr) 240 MG CAPSULE PO SCH (13:42)
[2019-01-01] MEDS ORDERED: Furosemide 20 MG/2 ML VIAL IVP ONE (16:04)
[2019-01-01] MEDS: Levalbuterol Neb 1.25 MG/3 ML IH SCH ×2 (16:21→21:46)
[2019-01-01] MEDS: *HR* Metoprolol 5 MG/5 ML VIAL IVP PRN (17:48)
[2019-01-02] MEDS: Heparin 25,000 UNIT/250 ML D5W 25,000 UNIT/250 ML IV.SOLN IVC SCH ×3 (00:45→21:36)
[2019-01-02] MEDS: Piperacillin/Tazobactam 3.375 GM in 0.9 % Sodium Chloride Mini Bag 100 ML IVPB SCH ×3 (01:30→17:53)
[2019-01-02] MEDS: Levalbuterol Neb 1.25 MG/3 ML IH SCH ×4 (04:24→22:02)
[2019-01-02 04:48] LABS: Basophils # 0.1 K/mcL (0.0-0.2); Basophils % 0.7 %; Eosinophils # 0.3 K/mcL (0.0-0.6); Eosinophils % 2.3 %; Hematocrit 26.1 % (35.3-44.9); Hemoglobin 8.8 g/dL (11.5-15.4); Lymphocytes # 1.7 K/mcL (0.6-4.6); Lymphocytes % 13.9 %; Mean Corpuscular HGB Conc 33.7 g/dL (31.6-35.5); Mean Corpuscular Hemoglobin 30.9 pg (28.0-33.3); Mean Corpuscular Volume 91.6 fL (83.0-100.0); Mean Platelet Volume 9.6 fL (9.4-12.4); Monocytes % 8.2 %; Neutrophils # 8.7 K/mcL (1.6-8.9); Nucleated Red Blood Cells 0.4 /100 WBC (0); Platelet Count 400 K/mcL (140-400); Red Blood Count 2.85 M/mcL (3.82-4.97); Red Cell Distribution Width 14.2 % (11.5-14.5); Segmented Neutrophils % 70.9 %; White Blood Count 12.3 K/mcL (4.3-11.1)
[2019-01-02 05:06] LABS: BUN/Creatinine Ratio 30 (6-26); Blood Urea Nitrogen 26 mg/dL (8-23); Calcium 8.6 mg/dL (8.6-10.3); Carbon Dioxide 17 mEq/L (23-29); Chloride 109 mEq/L (98-107); Glucose 107 mg/dL (70-105); Osmolality,Calculated 289 (280-300); Potassium 3.3 mEq/L (3.5-5.1); Sodium 137 mEq/L (136-145); eGFR For African Americans > 60 (> 60); eGFR For Non-African Americans > 60 (> 60)
[2019-01-02] MEDS: Aspirin 81 MG TAB.CHEW PO SCH (07:49)
[2019-01-02] MEDS: Diltiazem CD (24hr) 240 MG CAPSULE PO SCH (07:49)
[2019-01-02] MEDS: Doxycycline 100 MG in 0.9 % Sodium Chloride Mini Bag 100 ML IVPB SCH ×2 (07:49→19:34)
[2019-01-02] MEDS ORDERED: Diltiazem CD (24hr) 180 MG CAPSULE PO SCH (09:00)
--- NOTE | 2019-01-02 09:18 | Event Note ---
Date of Encounter: 01/02/19 Time of Encounter: 09:16 - Cardiology Event Note 12 hr tele AVG HR 110--A-Fib. Rate improving, but still not at goal (AVG<100). Currently on Lopressor 50mg BID and Cardizem CD 240mg daily. Off cardizem gtt. Will increase Cardizem CD to 360mg daily. Will re-evaluate HR midday and de termine if BB needs to be further increased. On heparin gtt for PE and A-Fib. Reviewed hospitalist note. Plan for NOAC after cause of anemia is determined. HGB has declined from admission, but currently stable. Will continue to follow until rate controlled.
[2019-01-02] MEDS ORDERED: Diltiazem CD (24hr) 120 MG CAPSULE PO ONE (09:56)
--- NOTE | 2019-01-02 10:17 | Internal Med Progress Note ---
Hospitalist Progress Note - Encounter Date of Encounter: 01/02/19 Time of Encounter: 10:17 - Subjective Interval History: No acute events overnight. Patient has no new complaints. Admits moderate SOB. - Exam Vitals: Temp Pulse Resp BP Pulse Ox 36.6 C 109 20 114/57 94 01/02/19 07:17 01/02/19 09:09 01/02/19 07:34 01/02/19 07:17 01/02/19 09:09 Exam: GENERAL: Not in distress. Alert and Oriented HEENT: EOMI, PERRLA MOUTH: Moist oral mucosA NECK:No JVD, No lymph nodes. CHEST AND LUNGS: Normal breath sounds, no wheezes or crackles. Still on INO2 via NC HEART: S1 and S2 normal, irregular, no murmurs ABDOMEN: Soft, nontender, no organomegaly SKIN: Normal color, no rahses, no lesions EXTREMITIES: No deformity, no edema, no tenderness, no joint swelling or clubbin g NEUROLOGICAL: Normal cognition, normal motor and sensory exam. - - Assessment and Plan (1) Pulmonary embolism Current Visit: Yes Status: Acute Assessment and Plan: Subsegmental PE in the right lower lobe on CT angiogram No evidence of right ventricular strain She is currently on a heparin drip H and H stable. If FOBT comes out negative, we will start on Eliquis. (2) Atrial fibrillation Current Visit: Yes Status: Acute Assessment and Plan: Pulse fluctuating between 107 and 130 at time of encounter Currently on PO Cardizem 240mg and Lopressor 50mg bid Will continue on heparin drip for now Plan for anticoagulation as above under PE. (3) Breast cancer Current Visit: Yes Status: Acute Assessment and Plan: Management per oncology team (4) Pneumonitis Current Visit: Yes Status: Acute Assessment and Plan: As seen on CT of the chest. WBC trending down. Now at 11.5 No growth on blood cultures yet Continue IV antibiotics Monitor for worsening signs of infection. (5) Hypokalemia Current Visit: Yes Status: Acute Assessment and Plan: Potassium 3.3 this morning as well Will give scheduled potassium replacement. (6) DVT prophylaxis Current Visit: Yes Status: Acute Assessment and Plan: Heparin drip - Time Spent with Patient Total time spent is greater than 50% in coordination of care (as documented) at patient's floor/unit and/or counseling patient: Internal Medicine: Result - Labs CBC & Chem 7: 01/02/19 04:35 01/02/19 04:35 Labs: Short CBC 01/02/19 Range/Units 04:35 WBC 12.3 H (4.3-11.1) K/mcL Hgb 8.8 L (11.5-15.4) g/dL Hct 26.1 L (35.3-44.9) % Plt Count 400 (140-400) K/mcL Neutrophils # 8.7 (1.6-8.9) K/mcL BMP 01/02/19 04:35 Sodium 137 Potassium 3.3 L Chloride 109 H Carbon Dioxide 17 L BUN 26 H Creatinine 0.88 Glucose 107 H Calcium 8.6 - ABG Interpretation ABG results: PT/INR, D-dimer PT 13.2 Seconds (9.4-12.1) H 12/30/18 03:35 Consult Discharge Plan - Plan Referrals: Israel Green Jr, MD [Primary Care Provider] - 01/10/19 12:00 pm _ (2) Atrial fibrillation Qualifiers: Atrial fibrillation type: unspecified Qualified Code(s): I48.91 - Unspecified atrial fibrillation (3) Breast cancer Qualifiers: Breast location: unspecified site of breast Estrogen receptor status: unspecified Patient sex: female Laterality: unspecified laterality Qualified Code(s): C50.919 - Malignant neoplasm of unspecified site of unspecified female breast
[2019-01-02] MEDS ORDERED: Furosemide 60 MG in 0.9 % Sodium Chloride 50 ML IVPB ONE (14:06)
[2019-01-02] MEDS ORDERED: Furosemide 40 MG/4 ML VIAL IVP ONE (14:09)
[2019-01-03] MEDS: Piperacillin/Tazobactam 3.375 GM in 0.9 % Sodium Chloride Mini Bag 100 ML IVPB SCH ×3 (01:00→17:15)
[2019-01-03 02:37] LABS: Basophils # 0.1 K/mcL (0.0-0.2); Basophils % 0.5 %; Eosinophils # 0.3 K/mcL (0.0-0.6); Eosinophils % 2.6 %; Hemoglobin 8.1 g/dL (11.5-15.4); Immature Granulocytes % 4.6 % (0-4); Lymphocytes # 1.6 K/mcL (0.6-4.6); Lymphocytes % 12.7 %; Mean Corpuscular HGB Conc 32.4 g/dL (31.6-35.5); Mean Corpuscular Volume 95.8 fL (83.0-100.0); Mean Platelet Volume 9.4 fL (9.4-12.4); Monocytes % 7.8 %; Neutrophils # 8.8 K/mcL (1.6-8.9); Nucleated Red Blood Cells 0.6 /100 WBC (0); Platelet Count 385 K/mcL (140-400); Red Blood Count 2.61 M/mcL (3.82-4.97); Red Cell Distribution Width 14.3 % (11.5-14.5); Segmented Neutrophils % 71.8 %; White Blood Count 12.3 K/mcL (4.3-11.1)
[2019-01-03 02:50] LABS: BUN/Creatinine Ratio 23 (6-26); Blood Urea Nitrogen 24 mg/dL (8-23); Calcium 8.7 mg/dL (8.6-10.3); Carbon Dioxide 19 mEq/L (23-29); Chloride 108 mEq/L (98-107); Glucose 113 mg/dL (70-105); Osmolality,Calculated 293 (280-300); Potassium 3.4 mEq/L (3.5-5.1); Sodium 139 mEq/L (136-145); eGFR For African Americans > 60 (> 60); eGFR For Non-African Americans 52 (> 60)
[2019-01-03] MEDS: Levalbuterol Neb 1.25 MG/3 ML IH SCH ×4 (04:31→22:35)
[2019-01-03] MEDS ORDERED: *HR* Alteplase (Cathflo) 2 MG VIAL IVP ONE ×4 (08:16→14:31)
[2019-01-03] MEDS: Aspirin 81 MG TAB.CHEW PO SCH (08:28)
[2019-01-03] MEDS: Furosemide 40 MG/4 ML VIAL IVP SCH (08:28)
[2019-01-03] MEDS: Diltiazem CD (24hr) 180 MG CAPSULE PO SCH (08:28)
[2019-01-03] MEDS: Doxycycline 100 MG in 0.9 % Sodium Chloride Mini Bag 100 ML IVPB SCH ×2 (08:29→22:09)
[2019-01-03] MEDS ORDERED: Diltiazem CD (24hr) 120 MG CAPSULE PO ONE (09:16)
--- NOTE | 2019-01-03 10:38 | Internal Med Progress Note ---
Hospitalist Progress Note - Encounter Date of Encounter: 01/03/19 Time of Encounter: 10:36 - Subjective Interval History: Patient had increased work of breathing later yesterday requiring an increase in her oxygen flow rate. CXR revealed worsening pulmonary edema compared to a previous one on this admission. IV lasix 60mg was given and a scheduled daily dose of 40mg was initiated. Patient complains of SOB this morning but states that it is better than yesterday. She denies chest pain and palpitations. - Exam Vitals: Temp Pulse Resp BP Pulse Ox 36.7 C 99 18 113/92 95 01/03/19 08:30 01/03/19 08:30 01/03/19 09:25 01/03/19 08:30 01/03/19 09:25 Exam: GENERAL: Not in distress. Alert and Oriented HEENT: EOMI, PERRLA MOUTH: Moist oral mucosA NECK:No JVD, No lymph nodes. CHEST AND LUNGS: Bibasal crackles and mild wheezing on auscultation. HEART: S1 and S2 normal, irregular, no murmurs ABDOMEN: Soft, nontender, no organomegaly SKIN: Normal color, no rahses, no lesions EXTREMITIES: No deformity, no edema, no tenderness, no joint swelling or clubbing NEUROLOGICAL: Normal cognition, normal motor and sensory exam. - Assessment and Plan (1) Pulmonary embolism Current Visit: Yes Status: Acute Assessment and Plan: Subsegmental PE in the right lower lobe on CT angiogram No evidence of right ventricular strain She is currently on a heparin drip FOBT negative. Will switch to PO Eliquis and monitor. All cell have been dropping gradually since admission. Cause of anemia more likely to be related to cancer than blood loss. (2) Atrial fibrillation Current Visit: Yes Status: Acute Assessment and Plan: Pulse in 100s at time of encounter Currently on PO Cardizem 240mg and Lopressor 50mg bid CHADVasc Score of 3 Will start in PO Eliquis. (3) Anemia Current Visit: Yes Status: Chronic Assessment and Plan: Patient's Hb is 8.1. A significant drop from her baseline. Of note, platelets and hematocrit have been dropping together. FOBT negative. Anemia is most likely related to breast CA, hemotherapy and acute pneumonitis rather than acute blood loss. Will order an iron profile to gain more insight into the anemia. monitor H an H. (4) Breast cancer Current Visit: Yes Status: Acute Assessment and Plan: Management per oncology team (5) Pneumonitis Current Visit: Yes Status: Acute Assessment and Plan: As seen on CT of the chest. WBC 12.3 without bands. No growth on blood cultures yet Continue IV antibiotics Monitor for worsening signs of infection. (6) Hypokalemia Current Visit: Yes Status: Acute Assessment and Plan: Potassium 3.4 this morning. On PO Potassium chloride 20mg daily. (7) DVT prophylaxis Current Visit: Yes Status: Acute Assessment and Plan: Heparin drip - Time Spent with Patient Total time spent is greater than 50% in coordination of care (as documented) at patient's floor/unit and/or counseling patient: Internal Medicine: Result - Labs CBC & Chem 7: 01/03/19 02:06 01/03/19 02:06 Labs: Short CBC 01/03/19 Range/Units 02:06 WBC 12.3 H (4.3-11.1) K/mcL Hgb 8.1 L (11.5-15.4) g/dL Hct 25.0 L (35.3-44.9) % Plt Count 385 (140-400) K/mcL Neutrophils # 8.8 (1.6-8.9) K/mcL BMP 01/03/19 02:06 Sodium 139 Potassium 3.4 L Chloride 108 H Carbon Dioxide 19 L BUN 24 H Creatinine 1.05 Glucose 113 H Calcium 8.7 - ABG Interpretation ABG results: PT/INR, D-dimer PT 13.2 Seconds (9.4-12.1) H 12/30/18 03:35 - Impressions Impressions Chest X-Ray 01/02/19 12:33 IMPRESSION: Worsened bilateral pulmonary airspace opacities likely representing pulmonary edema. A superimposed infectious process is not excluded. D/ / Jone Brandon MD / Jone Brandon MD Interpreting Provider: Jone Brandon MD Consult Discharge Plan - Plan Referrals: Israel Green Jr, MD [Primary Care Provider] - 01/10/19 12:00 pm (2) Atrial fibrillation Qualifiers: Atrial fibrillation type: unspecified Qualified Code(s): I48.91 - Unspecified atrial fibrillation (3) Anemia Qualifiers: Anemia type: other cause Other causes of anemia: chronic disease, neoplastic Qualified Code(s): D63.0 - Anemia in neoplastic disease (4) Breast cancer Qualifiers: Breast location: unspecified site of breast Estrogen receptor status: unspecified Patient sex: female Laterality: unspecified laterality Qualified Code(s): C50.919 - Malignant neoplasm of unspecified site of unspecified female breast
[2019-01-03 11:21] LABS: % Iron Saturation 8 % (15-50); Iron 12 mcg/dL (50-170); Transferrin 105 mg/dL (203-362)
--- NOTE | 2019-01-03 13:18 | Cardiology Progress Note ---
Date of Encounter: 01/03/19 Time of Encounter: 13:15 Assessment and Plan (1) Atrial fibrillation Current Visit: Yes Status: Acute New diagnosis of A-Fib. Chest CT suggestive for pneumonitis. CTA with subsegmental PE. TTE LV systolic function grossly appears normal. Normal RV structure with hyperdynamic function. Mild MR. Mildly sclerotic AV leaflets. Mild AR. Mild TR. Mild SD. Moderate phtn. K 3.4--replace. TSH nml. Has been transitioned to PO Cardizem CD, uptitrated to 360mg daily, off cardizem gtt. Lopressor PO uptitrated today to 75mg BID. 12 hr tele AVG HR 111, improving. Currently HR 90s at bedside. [id number] 3 (Age, Female, HTN). Currrently on heparin gtt and with PE. HGB 11.7 on admission--then 9.5, 10.4, 9.8, 8.6, 8.8, 8.1--downtrended. Recommend anemia work-up per primary team. Eliquis ordered per primary team. Continue to follow until rate controlled. Qualifiers: Atrial fibrillation type: unspecified Qualified Code(s): I48.91 - Unspecified atrial fibrillation (2) Elevated troponin Current Visit: Yes Status: Acute Troponin 0.19, 0.12, 0.12, 0.15 in setting of RONNIE, A-Fib RVR, pneumonitis PE. Suspect demand ischemia, nondiagnostic for ACS. Pt denies chest pain. TTE EF preserved. (3) Acute diastolic CHF (congestive heart failure), NYHA class 3 Current Visit: Yes Status: Acute CXR yesterday worsened bilateral pulmonary airspace opacities likely representing pulmonary edema. A superimposed infectious process is not excluded. TTE EF preserved. Agree with IV Lasix 40mg daily. Recommend strict I/Os, Na and fluid restriction, daily weights. Discussion w patient/family: The assessment and plan as outlined above was discussed with the patient and/or family members who expressed understanding and agreement. All questions were answered. Thank you for involving us in the care of your patient. Please call with any questions. I will discuss all the above with Dr. Pitts and make changes as necessary. Subjective Principal diagnosis: A-Fib RVR, sepsis Interval history: Pt reports feeling better today, dyspnea improving. CXR yesterday worsened bilateral pulmonary airspace opacities likely representing pulmonary edema. A superimposed infectious process is not excluded. Objective Vital Signs, Last 4 Hours Temp Pulse Resp BP Pulse Ox 01/03/19 11:36 98.1 F 102 18 102/58 97 01/03/19 09:25 18 95 Vital Signs Temp Pulse Resp BP Pulse Ox 01/03/19 11:36 98.1 F 102 18 102/58 97 01/03/19 09:25 18 95 01/03/19 08:30 98.1 F 99 18 113/92 95 01/03/19 07:00 98.1 F 99 19 113/92 93 01/03/19 04:36 20 100 01/02/19 23:19 98.5 F 90 21 99/61 99 01/02/19 22:07 20 100 01/02/19 20:26 99.1 F 125 20 104/66 98 01/02/19 17:50 108 20 98 01/02/19 16:38 99.5 F 102 19 115/47 100 01/02/19 15:43 22 90 01/02/19 14:50 114 90 Intake and Output 01/02/19 01/03/19 01/03/19 23:59 07:59 15:59 Intake Total 940.0 / 2311.0 100 / 440 340 / 440 Output Total 1250 / 1650 1800 / 1800 Balance -310.0 / 661.0 100 / -1360 -1460 / -1360 Intake: IV Fluids 700.0 / 1221.0 100 / 200 100 / 200 Heparin 25,000 UNIT/250 ML D5W 250.0 / 371.0 25,000 unit In 250 ml @ 14 UNIT /KG/HR 12.124 mls/hr IVC . [id number] [facility] Rx#:[id number] Doxycycline 100 MG In 0.9 % 100 / 300 100 / 100 Sodium Chloride (Mini-Bag +) 100 ML @ 100 mls/hr IVPB Q12H [facility] Rx#:[id number] Zosyn 3.375 GM In 0.9 % Sodium 100 / 300 100 / 100 Chloride (Mini-Bag +) 100 ML @ 25 mls/hr IVPB Q8HR [facility] Rx#: [id number] Vancocin 1,250 MG In 0.9 % 250 / 250 Sodium Chloride 250 ML @ 166. 667 mls/hr IVPB Q24H [facility] Rx#: [id number] Oral 240 / 1090 240 / 240 Output: Catheter 1250 / 1250 1800 / 1800 Urethral (Shea) 650 / 650 Other: Meal Dinner Breakfast Percent of Meal Consumed 80% 25% General: Conversant, No Apparent Distress HEENT: Atraumatic, Normocephaly, Mucus Membranes Moist Neck: Normal carotid pulses Cardiac: Other (irregularly irregular) Lungs: Other (diminished) Neuro: Alert and responsive, No focal deficits noted Abdomen: Soft, Non-Tender Skin: No rashes noted on visualized skin Musculoskeletal: No Chest Wall Tenderness Extremities: No Clubbing, No Cyanosis, No Edema, Normal Pulses Results 01/03/19 02:06 01/03/19 02:06 Lab Results 01/03/19 01/03/19 02:06 02:06 WBC 12.3 H Hgb 8.1 L Hct 25.0 L Plt Count 385 Sodium 139 Potassium 3.4 L Chloride 108 H Carbon Dioxide 19 L BUN 24 H Creatinine 1.05 Glucose 113 H Calcium 8.7 Short CBC 01/03/19 Range/Units 02:06 WBC 12.3 H (4.3-11.1) K/mcL Hgb 8.1 L (11.5-15.4) g/dL Hct 25.0 L (35.3-44.9) % Plt Count 385 (140-400) K/mcL Neutrophils # 8.8 (1.6-8.9) K/mcL BMP 01/03/19 Range/Units 02:06 Sodium 139 (136-145) mEq/L Potassium 3.4 L (3.5-5.1) mEq/L Chloride 108 H (98-107) mEq/L Carbon Dioxide 19 L (23-29) mEq/L BUN 24 H (8-23) mg/dL Creatinine 1.05 (0.60-1.20) mg/dL Glucose 113 H (70-105) mg/dL Calcium 8.7 (8.6-10.3) mg/dL Impressions Chest X-Ray 01/02/19 12:33 IMPRESSION: Worsened bilateral pulmonary airspace opacities likely representing pulmonary edema. A superimposed infectious process is not excluded. D/ / Jone Brandon MD / Jone Brandon MD Interpreting Provider: Jone Brandon MD Active Medications Apixaban (Eliquis) 10 mg PO BID [facility]; Protocol Stop: 01/09/19 21:01 Apixaban (Eliquis) 5 mg PO BID [facility]; Protocol Stop: 07/12/19 09:01 Aspirin (Aspirin) 81 mg PO DAILY [facility] Stop: 07/02/19 09:01 Last Admin: 01/03/19 08:28 Dose: 81 mg Documented by: Diltiazem HCl (Cardizem Cd) 360 mg PO DAILY [facility] Stop: 07/05/19 09:01 Last Admin: 01/03/19 08:28 Dose: 360 mg Documented by: Furosemide (Lasix) 40 mg IVP DAILY [facility] Stop: 07/05/19 09:01 Last Admin: 01/03/19 08:28 Dose: 40 mg Documented by: Piperacillin Sod/Tazobactam (Sod 3.375 gm/ Sodium Chloride) 100 mls @ 25 mls/hr IVPB Q8HR [facility] Stop: 07/01/19 08:01 Last Admin: 01/03/19 08:29 Dose: 25 mls/hr Documented by: Doxycycline Hyclate 100 mg/ (Sodium Chloride) 100 mls @ 100 mls/hr IVPB Q12H [facility] Stop: 07/01/19 20:01 Last Infusion: 01/03/19 09:30 Dose: Infused Documented by: Vancomycin HCl 1,250 mg/ (Sodium Chloride) 250 mls @ 166.667 mls/hr IVPB Q24H [facility] Stop: 07/04/19 20:01 Last Infusion: 01/02/19 23:54 Dose: Infused Documented by: Levalbuterol HCl (Xopenex) 1.25 mg IH [id number] [facility] Stop: 07/03/19 16:09 Last Admin: 01/03/19 09:23 Dose: 1.25 mg Documented by: Levothyroxine Sodium (Synthroid) 50 mcg PO QAM [facility] Stop: 07/06/19 09:01 Metoprolol Tartrate (Lopressor) 5 mg IVP Q5M PRN PRN Reason: Heart Rate- High Stop: 07/01/19 08:46 Last Admin: 01/01/19 17:48 Dose: 5 mg Documented by: Metoprolol Tartrate (Lopressor) 75 mg PO BID [facility] Stop: 07/05/19 21:01 Naloxone HCl (Narcan) 0.4 mg IVP Q2MPRN PRN PRN Reason: SEE COMMENTS Stop: 07/01/19 02:04 Non-Formulary Medication (Ca/D3/Mag#11/Zinc/Chief Of Planning/Ilia/Bor [Caltrate 600+D Plus Tablet]) 2 tab PO QAM [facility] Stop: 07/06/19 09:01 Non-Formulary Medication (Multivit-Min/Fa/Lycopen/Lutein [Centrum Silver Tablet]) 1 tab PO DAILY [facility] Stop: 07/06/19 09:01 Non-Formulary Medication (Olmesartan/Hydrochlorothiazide [Benicar Hct 20-12.5 Mg Tablet]) 1 tab PO DAILY [facility] Stop: 07/06/19 09:01 Potassium Chloride (Potassium Chloride) 20 meq PO DAILY [facility] Stop: 07/05/19 09:01 Last Admin: 01/03/19 08:28 Dose: 20 meq Documented by: - Imaging and Cardiology Echo: report reviewed - EKG Interpretation EKG results cardiology: other (12 hr tele AVG HR 111, A-Fib) Consult Discharge Plan - Plan Referrals: Israel Green Jr, MD [Primary Care Provider] - 01/10/19 12:00 pm
[2019-01-03] MEDS: Apixaban 5 MG TABLET PO SCH ×2 (14:34→22:10)
[2019-01-04] MEDS: Piperacillin/Tazobactam 3.375 GM in 0.9 % Sodium Chloride Mini Bag 100 ML IVPB SCH ×3 (00:28→15:06)
[2019-01-04] MEDS: Levalbuterol Neb 1.25 MG/3 ML IH SCH ×4 (04:57→21:38)
[2019-01-04 06:31] LABS: Basophils # 0.1 K/mcL (0.0-0.2); Basophils % 0.6 %; Eosinophils # 0.4 K/mcL (0.0-0.6); Eosinophils % 3.1 %; Hematocrit 25.8 % (35.3-44.9); Hemoglobin 8.3 g/dL (11.5-15.4); Lymphocytes # 1.4 K/mcL (0.6-4.6); Lymphocytes % 11.5 %; Mean Corpuscular HGB Conc 32.2 g/dL (31.6-35.5); Mean Corpuscular Hemoglobin 30.5 pg (28.0-33.3); Mean Corpuscular Volume 94.9 fL (83.0-100.0); Monocytes # 0.9 K/mcL (0.0-1.3); Monocytes % 7.1 %; Neutrophils # 9.1 K/mcL (1.6-8.9); Nucleated Red Blood Cells 0.6 /100 WBC (0); Platelet Count 289 K/mcL (140-400); Red Blood Count 2.72 M/mcL (3.82-4.97); Red Cell Distribution Width 14.5 % (11.5-14.5); Segmented Neutrophils % 72.7 %; White Blood Count 12.5 K/mcL (4.3-11.1)
[2019-01-04 06:50] LABS: BUN/Creatinine Ratio 26 (6-26); Blood Urea Nitrogen 28 mg/dL (8-23); Calcium 9.1 mg/dL (8.6-10.3); Carbon Dioxide 21 mEq/L (23-29); Chloride 105 mEq/L (98-107); Glucose 109 mg/dL (70-105); Osmolality,Calculated 294 (280-300); Potassium 3.6 mEq/L (3.5-5.1); Sodium 139 mEq/L (136-145); eGFR For African Americans > 60 (> 60); eGFR For Non-African Americans 51 (> 60)
[2019-01-04 07:44] LABS: Ferritin 728 ng/mL (10-120)
[2019-01-04] MEDS: Furosemide 40 MG/4 ML VIAL IVP SCH (07:51)
[2019-01-04] MEDS: Losartan/HCTZ 50-12.5 TABLET PO SCH (07:52)
[2019-01-04] MEDS: Apixaban 5 MG TABLET PO SCH ×2 (07:52→20:30)
[2019-01-04] MEDS: Aspirin 81 MG TAB.CHEW PO SCH (07:53)
[2019-01-04] MEDS: Diltiazem CD (24hr) 180 MG CAPSULE PO SCH (07:53)
[2019-01-04] MEDS: Multivit/Ca/Min/Fe/FA 1 TAB TABLET PO SCH (07:53)
[2019-01-04] MEDS: Doxycycline 100 MG in 0.9 % Sodium Chloride Mini Bag 100 ML IVPB SCH ×2 (07:54→20:31)
--- NOTE | 2019-01-04 13:13 | Internal Med Progress Note ---
Hospitalist Progress Note - Encounter Date of Encounter: 01/04/19 Time of Encounter: 08:27 - Subjective Interval History: No acute events overnight. Patient continues to be on high flow oxygen. She states that she feels she is getting better. She denies chest pain fever and chills - Exam Vitals: Temp Pulse Resp BP Pulse Ox 36.6 C 115 18 106/85 96 01/04/19 11:17 01/04/19 11:17 01/04/19 11:17 01/04/19 11:17 01/04/19 11:17 Exam: GENERAL: Mild respiratory distress. Alert and Oriented HEENT: EOMI, PERRLA MOUTH: Moist oral mucosA NECK:No JVD, No lymph nodes. CHEST AND LUNGS: Few crackles at lung bases. No wheezing HEART: S1 and S2 normal, irregular, no murmurs ABDOMEN: Soft, nontender, no organomegaly SKIN: Normal color, no rahses, no lesions EXTREMITIES: No deformity, no edema, no tenderness, no joint swelling or clubbing NEUROLOGICAL: Normal cognition, normal motor and sensory exam. - Assessment and Plan (1) Pulmonary embolism Current Visit: Yes Status: Acute Assessment and Plan: Patient remains on high flow oxygen She denies chest pain Vitals are stable except for an irregularly irregular rapid pulse Subsegmental PE in the right lower lobe on CT angiogram No evidence of right ventricular strain She has been started on by mouth Eliquis Repeat CXR (2) Atrial fibrillation Current Visit: Yes Status: Acute Assessment and Plan: Pulse in 100s at time of encounter By mouth Cardizem has been increased to 360 mg daily Lopressor currently at 75 mg twice a day CHADVasc Score of 3 Started on by mouth Eliquis (3) Anemia Current Visit: Yes Status: Chronic Assessment and Plan: Hemoglobin stable at 8.3. Normocytic Iron profile shows a mixed picture of iron deficiency anemia and anemia of chronic disease Iron levels of 12, ferritin 728. Will give IV iron. (4) Breast cancer Current Visit: Yes Status: Acute Assessment and Plan: Management per oncology team as outpatient (5) Pneumonitis Current Visit: Yes Status: Resolved Assessment and Plan: As seen on CT of the chest. WBC 12.5 without bands. No growth on blood and urine cultures. (6) Hypokalemia Current Visit: Yes Status: Resolved Assessment and Plan: Potassium 3.6 this morning. On PO Potassium chloride 20mg daily. (7) DVT prophylaxis Current Visit: Yes Status: Acute Assessment and Plan: Eliquis - Time Spent with Patient Total time spent is greater than 50% in coordination of care (as documented) at patient's floor/unit and/or counseling patient: Internal Medicine: Result - Labs CBC & Chem 7: 01/04/19 06:03 01/04/19 06:03 Labs: Short CBC 01/04/19 Range/Units 06:03 WBC 12.5 H (4.3-11.1) K/mcL Hgb 8.3 L (11.5-15.4) g/dL Hct 25.8 L (35.3-44.9) % Plt Count 289 (140-400) K/mcL Neutrophils # 9.1 H (1.6-8.9) K/mcL BMP 01/04/19 06:03 Sodium 139 Potassium 3.6 Chloride 105 Carbon Dioxide 21 L BUN 28 H Creatinine 1.07 Glucose 109 H Calcium 9.1 - ABG Interpretation ABG results: PT/INR, D-dimer PT 13.2 Seconds (9.4-12.1) H 12/30/18 03:35 Consult Discharge Plan - Plan Referrals: Israel Green Jr, MD [Primary Care Provider] - 01/10/19 12:00 pm (2) Atrial fibrillation Qualifiers: Atrial fibrillation type: unspecified Qualified Code(s): I48.91 - Unspecified atrial fibrillation (3) Anemia Qualifiers: Anemia type: other cause Other causes of anemia: chronic disease, neoplastic Qualified Code(s): D63.0 - Anemia in neoplastic disease (4) Breast cancer Qualifiers: Breast location: unspecified site of breast Estrogen receptor status: unspecified Patient sex: female Laterality: unspecified laterality Qualified Code(s): C50.919 - Malignant neoplasm of unspecified site of unspecified female breast
--- NOTE | 2019-01-04 13:13 | Cardiology Progress Note ---
Date of Encounter: 01/04/19 Time of Encounter: 13:11 Assessment and Plan (1) Atrial fibrillation Current Visit: Yes Status: Acute New diagnosis of A-Fib. Chest CT suggestive for pneumonitis. CTA with subsegmental PE. TTE LV systolic function grossly appears normal. Normal RV structure with hyperdynamic function. Mild MR. Mildly sclerotic AV leaflets. Mild AR. Mild TR. Mild NV. Moderate phtn. Has been transitioned to PO Cardizem CD, uptitrated to 360mg daily, off cardizem gtt. Lopressor PO uptitrated to 100mg BID. 12 hr tele AVG HR 112. Currently HR 100s-120s at bedside. Discussed and reviewed with Dr. Pitts. Will load with IV digoxin for further HR control. [id number] 3 (Age, Female, HTN). Currrently on heparin gtt and with PE. HGB 11.7 on admission--8.3--downtrended, but stable. Recommend anemia work-up per primary team. Eliquis ordered per primary team for PE. Continue to follow until rate controlled. Qualifiers: Atrial fibrillation type: unspecified Qualified Code(s): I48.91 - Unspecified atrial fibrillation (2) Elevated troponin Current Visit: Yes Status: Acute Troponin 0.19, 0.12, 0.12, 0.15 in setting of RONNIE, A-Fib RVR, pneumonitis PE. Suspect demand ischemia, nondiagnostic for ACS. Pt denies chest pain. TTE EF preserved. (3) Acute diastolic CHF (congestive heart failure), NYHA class 3 Current Visit: Yes Status: Acute CXR 01/02 worsened bilateral pulmonary airspace opacities likely representing pulmonary edema. A superimposed infectious process is not excluded. TTE EF preserved. Agree with IV Lasix 40mg daily. Repeat CXR today. Recommend strict I/Os, Na and fluid restriction, daily weights. Discussion w patient/family: The assessment and plan as outlined above was discussed with the patient and/or family members who expressed understanding and agreement. All questions were answered. Thank you for involving us in the care of your patient. Please call with any questions. I will discuss all the above with Dr. Pitts and make changes as necessary. Subjective Principal diagnosis: A-Fib RVR, sepsis Interval history: Pt is more short of breath this AM. Reports palpitations earlier. Denies chest pain. Objective Vital Signs, Last 4 Hours Temp Pulse Resp BP Pulse Ox 01/04/19 11:17 97.8 F 115 18 106/85 96 01/04/19 10:14 19 95 Vital Signs Temp Pulse Resp BP Pulse Ox 01/04/19 11:17 97.8 F 115 18 106/85 96 01/04/19 10:14 19 95 01/04/19 06:34 98.1 F 106 19 119/88 95 01/04/19 05:00 18 94 01/04/19 03:20 98.1 F 118 25 107/65 91 01/03/19 23:21 98.6 F 104 21 109/65 93 01/03/19 22:38 16 94 01/03/19 20:21 100.1 F H 134 20 107/67 95 01/03/19 16:34 98.5 F 112 20 99/71 95 Intake and Output 01/03/19 01/04/19 01/04/19 23:59 07:59 15:59 Intake Total 200 / 1100 100 / 680 580 / 680 Output Total 550 / 2350 550 / 2350 1800 / 2350 Balance -350 / -1250 -450 / -1670 -1220 / -1670 Intake: IV Fluids 200 / 500 100 / 200 100 / 200 Doxycycline 100 MG In 0.9 % 100 / 200 100 / 100 Sodium Chloride (Mini-Bag +) 100 ML @ 100 mls/hr IVPB Q12H [facility] Rx#:[id number] Zosyn 3.375 GM In 0.9 % Sodium 100 / 300 100 / 100 Chloride (Mini-Bag +) 100 ML @ 25 mls/hr IVPB Q8HR [facility] Rx#: [id number] Oral 480 / 480 Output: Catheter 550 / 2350 550 / 2350 1800 / 2350 Other: Meal Lunch Percent of Meal Consumed 95% Stool Size Moderate Stool Consistency loose Stool Color Brown Yellow # Bowel Movements 1 Weight 87.3 kg Patient Weight 01/04/19 23:59 Weight 87.3 kg General: Conversant, Other (mild respiratory distress) HEENT: Atraumatic, Normocephaly, Mucus Membranes Moist Neck: Normal carotid pulses Cardiac: Other (irregularly irregular) Lungs: Other (wheezes bilaterally) Neuro: Alert and responsive, No focal deficits noted Abdomen: Soft, Non-Tender Skin: No rashes noted on visualized skin Musculoskeletal: No Chest Wall Tenderness Extremities: Other (mild BLE edema.) Results 01/04/19 06:03 01/04/19 06:03 Lab Results Active Medications Apixaban (Eliquis) 10 mg PO BID [facility]; Protocol Stop: 01/09/19 21:01 Last Admin: 01/04/19 07:52 Dose: 10 mg Documented by: Apixaban (Eliquis) 5 mg PO BID [facility]; Protocol Stop: 07/12/19 09:01 Aspirin (Aspirin) 81 mg PO DAILY [facility] Stop: 07/02/19 09:01 Last Admin: 01/04/19 07:53 Dose: 81 mg Documented by: Diltiazem HCl (Cardizem Cd) 360 mg PO DAILY [facility] Stop: 07/05/19 09:01 Last Admin: 01/04/19 07:53 Dose: 360 mg Documented by: Furosemide (Lasix) 40 mg IVP DAILY [facility] Stop: 07/05/19 09:01 Last Admin: 01/04/19 07:51 Dose: 40 mg Documented by: HCTZ/Losartan Potassium (Hyzaar 50/12.5) 1 each PO DAILY [facility] Stop: 07/06/19 09:01 Last Admin: 01/04/19 07:52 Dose: 1 each Documented by: Piperacillin Sod/Tazobactam (Sod 3.375 gm/ Sodium Chloride) 100 mls @ 25 mls/hr IVPB Q8HR [facility] Stop: 07/01/19 08:01 Last Admin: 01/04/19 07:53 Dose: 25 mls/hr Documented by: Doxycycline Hyclate 100 mg/ (Sodium Chloride) 100 mls @ 100 mls/hr IVPB Q12H [facility] Stop: 07/01/19 20:01 Last Infusion: 01/04/19 09:17 Dose: Infused Documented by: Vancomycin HCl 1,250 mg/ (Sodium Chloride) 250 mls @ 166.667 mls/hr IVPB Q24H [facility] Stop: 07/04/19 20:01 Last Admin: 01/03/19 22:02 Dose: 166.7 mls/hr Documented by: Levalbuterol HCl (Xopenex) 1.25 mg IH [id number] [facility] Stop: 07/03/19 16:09 Last Admin: 01/04/19 10:11 Dose: 1.25 mg Documented by: Levothyroxine Sodium (Synthroid) 50 mcg PO 0630 [facility] Stop: 07/06/19 06:31 Last Admin: 01/04/19 06:00 Dose: 50 mcg Documented by: Metoprolol Tartrate (Lopressor) 5 mg IVP Q5M PRN PRN Reason: Heart Rate- High Stop: 07/01/19 08:46 Last Admin: 01/01/19 17:48 Dose: 5 mg Documented by: Metoprolol Tartrate (Lopressor) 100 mg PO BID [facility] Stop: 07/06/19 21:01 Multivitamins/Calcium (Thera M Plus) 1 tab PO DAILY [facility] Stop: 07/06/19 09:01 Last Admin: 01/04/19 07:53 Dose: 1 tab Documented by: Naloxone HCl (Narcan) 0.4 mg IVP Q2MPRN PRN PRN Reason: SEE COMMENTS Stop: 07/01/19 02:04 Potassium Chloride (Potassium Chloride) 20 meq PO DAILY [facility] Stop: 07/05/19 09:01 Last Admin: 01/04/19 07:52 Dose: 20 meq Documented by: 01/04/19 01/04/19 06:03 06:03 WBC 12.5 H Hgb 8.3 L Hct 25.8 L Plt Count 289 Sodium 139 Potassium 3.6 Chloride 105 C arbon Dioxide 21 L BUN 28 H Creatinine 1.07 Glucose 109 H Calcium 9.1 - Imaging and Cardiology Echo: report reviewed - EKG Interpretation EKG results cardiology: other (12 hr tele AVG HR 112, A-Fib) Consult Discharge Plan - Plan Referrals: Israel Green Jr, MD [Primary Care Provider] - 01/10/19 12:00 pm
[2019-01-04] MEDS ORDERED: *HR* Digoxin 0.5 MG/2 ML AMPUL IVP ONE (13:15)
[2019-01-04] MEDS: Iron Sucrose Complex 200 MG in 0.9 % Sodium Chloride 100 ML IVPB SCH (13:49)
[2019-01-04] MEDS: *HR* Digoxin 0.5 MG/2 ML AMPUL IVP SCH (20:29)
[2019-01-05] MEDS: Piperacillin/Tazobactam 3.375 GM in 0.9 % Sodium Chloride Mini Bag 100 ML IVPB SCH ×4 (00:20→23:41)
[2019-01-05] MEDS ORDERED: *HR* LORazepam 2 MG/ML VIAL IVP PRN (00:31)
[2019-01-05] MEDS: *HR* Digoxin 0.5 MG/2 ML AMPUL IVP SCH (02:25)
[2019-01-05] MEDS: Levalbuterol Neb 1.25 MG/3 ML IH SCH ×4 (03:49→21:47)
[2019-01-05 06:12] LABS: Basophils # 0.1 K/mcL (0.0-0.2); Basophils % 0.6 %; Eosinophils # 0.4 K/mcL (0.0-0.6); Hematocrit 27.3 % (35.3-44.9); Hemoglobin 8.9 g/dL (11.5-15.4); Immature Granulocytes % 4.2 % (0-4); Lymphocytes # 1.5 K/mcL (0.6-4.6); Lymphocytes % 10.8 %; Mean Corpuscular HGB Conc 32.6 g/dL (31.6-35.5); Mean Corpuscular Hemoglobin 30.6 pg (28.0-33.3); Mean Corpuscular Volume 93.8 fL (83.0-100.0); Mean Platelet Volume 9.4 fL (9.4-12.4); Monocytes # 0.9 K/mcL (0.0-1.3); Monocytes % 6.7 %; Neutrophils # 10.4 K/mcL (1.6-8.9); Nucleated Red Blood Cells 0.6 /100 WBC (0); Platelet Count 381 K/mcL (140-400); Red Blood Count 2.91 M/mcL (3.82-4.97); Red Cell Distribution Width 14.6 % (11.5-14.5); Segmented Neutrophils % 74.7 %; White Blood Count 13.9 K/mcL (4.3-11.1)
[2019-01-05 06:33] LABS: Potassium 3.2 mEq/L (3.5-5.1)
[2019-01-05] MEDS: Iron Sucrose Complex 200 MG in 0.9 % Sodium Chloride 100 ML IVPB SCH (08:14)
[2019-01-05] MEDS: Diltiazem CD (24hr) 180 MG CAPSULE PO SCH (08:16)
[2019-01-05] MEDS: Losartan/HCTZ 50-12.5 TABLET PO SCH (08:16)
[2019-01-05] MEDS: Multivit/Ca/Min/Fe/FA 1 TAB TABLET PO SCH (08:16)
[2019-01-05] MEDS: Aspirin 81 MG TAB.CHEW PO SCH (08:16)
[2019-01-05] MEDS: Doxycycline 100 MG in 0.9 % Sodium Chloride Mini Bag 100 ML IVPB SCH ×2 (08:16→21:07)
[2019-01-05] MEDS: Furosemide 40 MG/4 ML VIAL IVP SCH (08:16)
[2019-01-05] MEDS: Apixaban 5 MG TABLET PO SCH ×2 (08:16→21:02)
--- NOTE | 2019-01-05 08:25 | Internal Med Progress Note ---
Hospitalist Progress Note - Encounter Date of Encounter: 01/05/19 Time of Encounter: 08:00 - Exam Vitals: Temp Pulse Resp BP Pulse Ox 98.5 F 102 26 108/76 97 01/05/19 07:26 01/05/19 07:26 01/05/19 07:26 01/05/19 07:26 01/05/19 07:26 Exam: GENERAL: Mild respiratory distress. Alert and Oriented HEENT: EOMI, PERRLA MOUTH: Moist oral mucosA NECK:No JVD, No lymph nodes. CHEST AND LUNGS: Few crackles at lung bases. No wheezing HEART: S1 and S2 normal, irregular, no murmurs ABDOMEN: Soft, nontender, no organomegaly SKIN: Normal color, no rahses, no lesions EXTREMITIES: No deformity, no edema, no tenderness, no joint swelling or clubbing NEUROLOGICAL: Normal cognition, normal motor and sensory exam. - Assessment and Plan (1) Acute respiratory failure with hypoxia Current Visit: Yes Status: Acute Assessment and Plan: Likely multifactorial secondary to PE, atrial fibrillation and pneumonitis She is on high flow oxygen via nasal cannula. Seen by pulmonary and started on steroids Continue anticoagulation for PE and supportive management (2) Pneumonitis Current Visit: Yes Status: Acute Assessment and Plan: CXR shows multifocal airspace opacities. CT shows diffuse consolidative and groundglass opacities. Has history of breast cancer on chemotherapy Started on bactrim for PCP pneumonia per pulmonary. Aspergillus, Blastomyces, Fungitell, Histoplsma, Legionella, mycoplasma pending for atypical pneumonia (3) Atrial fibrillation Current Visit: Yes Status: Acute Assessment and Plan: Rate controlled. PO Cardizem has been increased to 360 mg daily Lopressor currently at 75 mg twice a day CHADVasc Score of 3 Continue on Eliquis (4) Hypokalemia Current Visit: Yes Status: Resolved Assessment and Plan: Potassium 3.6 this morning. On PO Potassium chloride 20mg daily. (5) Pulmonary embolism Current Visit: Yes Status: Acute Assessment and Plan: Patient remains on high flow oxygen She denies chest pain Vitals are stable except for an irregularly irregular rapid pulse Subsegmental PE in the right lower lobe on CT angiogram No evidence of right ventricular strain She has been started on by mouth Eliquis (6) Anemia Current Visit: Yes Status: Chronic Assessment and Plan: Hemoglobin stable at 8.3. Normocytic Iron profile shows a mixed picture of iron deficiency anemia and anemia of chronic disease Iron levels of 12, ferritin 728. Will give IV iron. (7) Breast cancer Current Visit: Yes Status: Acute Assessment and Plan: Management per oncology team as outpatient (8) DVT prophylaxis Current Visit: Yes Status: Acute Assessment and Plan: [place] (9) Acute diastolic CHF (congestive heart failure), NYHA class 3 Current Visit: Yes Status: Acute Assessment and Plan: Acute worsening of chronic diastolic CHF. Continue lasix - Time Spent with Patient Total time spent is greater than 50% in coordination of care (as documented) at patient's floor/unit and/or counseling patient: Internal Medicine: Result - Labs CBC & Chem 7: 01/05/19 05:34 01/05/19 05:34 Labs: Short CBC 01/05/19 Range/Units 05:34 WBC 13.9 H (4.3-11.1) K/mcL Hgb 8.9 L (11.5-15.4) g/dL Hct 27.3 L (35.3-44.9) % Plt Count 381 (140-400) K/mcL Neutrophils # 10.4 H (1.6-8.9) K/mcL BMP 01/05/19 05:34 Sodium 142 Potassium 3.2 L Chloride 103 Carbon Dioxide 26 BUN 29 H Creatinine 1.20 Glucose 98 Calcium 9.0 - ABG Interpretation ABG results: PT/INR, D-dimer PT 13.2 Seconds (9.4-12.1) H 12/30/18 03:35 - Impressions Impressions Chest X-Ray 01/04/19 13:06 IMPRESSION: New small pleural effusions. Multifocal airspace opacities which are stable to slightly progressed. D/ / Elyssa Bardales MD / Elyssa Bardales MD Interpreting Provider: Elyssa Bardales MD Consult Discharge Plan - Plan Referrals: Israel Green Jr, MD [Primary Care Provider] - 01/10/19 12:00 pm (3) Atrial fibrillation Qualifiers: Atrial fibrillation type: unspecified Qualified Code(s): I48.91 - Unspecified atrial fibrillation (6) Anemia Qualifiers: Anemia type: other cause Other causes of anemia: chronic disease, neoplastic Qualified Code(s): D63.0 - Anemia in neoplastic disease (7) Breast cancer Qualifiers: Breast location: unspecified site of breast Estrogen receptor status: unspecified Patient sex: female Laterality: unspecified laterality Qualified Code(s): C50.919 - Malignant neoplasm of unspecified site of unspecified female breast
[2019-01-05] MEDS ORDERED: *HR* Digoxin 0.125 MG TABLET PO SCH (09:00)
--- NOTE | 2019-01-05 12:39 | Cardiology Progress Note ---
Date of Encounter: 01/05/19 Time of Encounter: 12:35 Assessment and Plan (1) Atrial fibrillation Current Visit: Yes Status: Acute New diagnosis of A-Fib. Chest CT suggestive for pneumonitis. CTA with subsegmental PE. TTE LV systolic function grossly appears normal. Normal RV structure with hyperdynamic function. Mild MR. Mildly sclerotic AV leaflets. Mild AR. Mild TR. Mild AR. Moderate phtn. Has been transitioned to PO Cardizem CD, uptitrated to 360mg daily, off cardizem gtt. Lopressor PO uptitrated to 100mg BID. Loaded with IV Digoxin yesterday--total of 1mg. Started PO Digoxin this AM 125mcg daily. HR now controlled. 12 hr tele AVG HR 93, A-Fib. HR 70s-80s at bedside. BP borderline, will decrease Losartan/HCTZ. [id number] 3 (Age, Female, HTN). Currrently on heparin gtt and with PE. HGB 11.7 on admission--8.9--downtrended, but stable. Anemia work-up per primary team. Eliquis ordered per primary team for PE. Cardiology signing off. Reconsult PRN. Will coordinate outpt follow-up in 2-3 weeks. Qualifiers: Atrial fibrillation type: unspecified Qualified Code(s): I48.91 - Unspeci fied atrial fibrillation (2) Elevated troponin Current Visit: Yes Status: Acute Troponin 0.19, 0.12, 0.12, 0.15 in setting of RONNIE, A-Fib RVR, pneumonitis PE. Suspect demand ischemia, nondiagnostic for ACS. Pt denies chest pain. TTE EF preserved. (3) Acute diastolic CHF (congestive heart failure), NYHA class 3 Current Visit: Yes Status: Acute CXR 01/02 worsened bilateral pulmonary airspace opacities likely representing pulmonary edema. A superimposed infectious process is not excluded. TTE EF preserved. CXR 01/04 new small pleural effusions. Agree with IV Lasix 40mg daily until near euvolemic and transition to PO prior to d/c. Recommend strict I/Os, Na and fluid restriction, daily weights. Discussion w patient/family: The assessment and plan as outlined above was discussed with the patient and/or family members who expressed understanding and agreement. All questions were answered. Thank you for involving us in the care of your patient. Please call with any questions. I will discuss all the above with Dr. Pitts and make changes as necessary. Subjective Principal diagnosis: A-Fib RVR, sepsis Interval history: Pt reports having a rough night last night, but feeling better this AM. Objective Vital Signs, Last 4 Hours Temp Pulse Resp BP Pulse Ox 01/05/19 11:12 97.9 F 92 101/56 98 01/05/19 09:34 18 98 Vital Signs Temp Pulse Resp BP Pulse Ox 01/05/19 11:12 97.9 F 92 101/56 98 01/05/19 09:34 18 98 01/05/19 07:26 98.5 F 102 26 108/76 97 01/05/19 03:49 34 113/79 97 01/05/19 03:11 98.3 F 86 29 113/79 98 01/04/19 22:56 98.9 F 84 38 105/71 94 01/04/19 21:50 26 132/66 94 01/04/19 21:38 28 94 01/04/19 19:38 97.7 F 90 22 132/66 95 01/04/19 17:21 98.8 F 106 18 132/73 93 01/04/19 16:13 18 96 Intake and Output 01/04/19 01/05/19 01/05/19 23:59 07:59 15:59 Intake Total 440 / 1920 100 / 960 860 / 960 Output Total 400 / 3450 1100 / 1100 Balance 40 / -1530 100 / -140 -240 / -140 Intake: IV Fluids 200 / 600 100 / 200 100 / 200 Doxycycline 100 MG In 0.9 % 100 / 200 100 / 100 Sodium Chloride (Mini-Bag +) 100 ML @ 100 mls/hr IVPB Q12H [facility] Rx#:[id number] Zosyn 3.375 GM In 0.9 % Sodium 100 / 300 100 / 100 Chloride (Mini-Bag +) 100 ML @ 25 mls/hr IVPB Q8HR [facility] Rx#: [id number] Oral 240 / 1320 760 / 760 Output: Catheter 400 / 3450 1100 / 1100 Other: Meal Dinner Breakfast Percent of Meal Consumed 95% 100% Stool Size Large Stool Consistency liquid Stool Color Brown # Bowel Movements 1 General: Conversant, No Apparent Distress HEENT: Atraumatic, Normocephaly, Mucus Membranes Moist Neck: Normal carotid pulses Cardiac: Other (irregularly irregular) Lungs: Other (diminished) Neuro: Alert and responsive, No focal deficits noted Abdomen: Soft, Non-Tender Skin: No rashes noted on visualized skin Musculoskeletal: No Chest Wall Tenderness Extremities: Other (mild BLE edema) Results 01/05/19 05:34 01/05/19 05:34 Lab Results 01/05/19 01/05/19 05:34 05:34 WBC 13.9 H Hgb 8.9 L Hct 27.3 L Plt Count 381 Sodium 142 Potassium 3.2 L Chloride 103 Carbon Dioxide 26 BUN 29 H Creatinine 1.20 Glucose 98 Calcium 9.0 Short CBC 01/05/19 Range/Units 05:34 WBC 13.9 H (4.3-11.1) K/mcL Hgb 8.9 L (11.5-15.4) g/dL Hct 27.3 L (35.3-44.9) % Plt Count 381 (140-400) K/mcL Neutrophils # 10.4 H (1.6-8.9) K/mcL BMP 01/05/19 Range/Units 05:34 Sodium 142 (136-145) mEq/L Potassium 3.2 L (3.5-5.1) mEq/L Chloride 103 (98-107) mEq/L Carbon Dioxide 26 (23-29) mEq/L BUN 29 H (8-23) mg/dL Creatinine 1.20 (0.60-1.20) mg/dL Glucose 98 (70-105) mg/dL Calcium 9.0 (8.6-10.3) mg/dL Impressions Chest X-Ray 01/04/19 13:06 IMPRESSION: New small pleural effusions. Multifocal airspace opacities which are stable to slightly progressed. D/ / Elyssa Bardales MD / Elyssa Bardales MD Interpreting Provider: Elyssa Bardales MD Active Medications Apixaban (Eliquis) 10 mg PO BID [facility]; Protocol Stop: 01/09/19 21:01 Last Admin: 01/05/19 08:16 Dose: 10 mg Documented by: Apixaban (Eliquis) 5 mg PO BID [facility]; Protocol Stop: 07/12/19 09:01 Aspirin (Aspirin) 81 mg PO DAILY [facility] Stop: 07/02/19 09:01 Last Admin: 01/05/19 08:16 Dose: 81 mg Documented by: Digoxin (Lanoxin) 0.125 mg PO DAILY [facility] Stop: 07/07/19 09:01 Last Admin: 01/05/19 08:55 Dose: 0.125 mg Documented by: Diltiazem HCl (Cardizem Cd) 360 mg PO DAILY [facility] Stop: 07/05/19 09:01 Last Admin: 01/05/19 08:16 Dose: 360 mg Documented by: Furosemide (Lasix) 40 mg IVP DAILY [facility] Stop: 07/05/19 09:01 Last Admin: 01/05/19 08:16 Dose: 40 mg Documented by: HCTZ/Losartan Potassium (Hyzaar 50/12.5) 1 each PO DAILY [facility] Stop: 07/06/19 09:01 Last Admin: 01/05/19 08:16 Dose: 1 each Documented by: Piperacillin Sod/Tazobactam (Sod 3.375 gm/ Sodium Chloride) 100 mls @ 25 mls/hr IVPB Q8HR [facility] Stop: 07/01/19 08:01 Last Admin: 01/05/19 08:17 Dose: 25 mls/hr Documented by: Doxycycline Hyclate 100 mg/ (Sodium Chloride) 100 mls @ 100 mls/hr IVPB Q12H [facility] Stop: 07/01/19 20:01 Last Infusion: 01/05/19 11:09 Dose: Infused Documented by: Vancomycin HCl 1,250 mg/ (Sodium Chloride) 250 mls @ 166.667 mls/hr IVPB Q24H [facility] Stop: 07/04/19 20:01 Last Admin: 01/04/19 20:30 Dose: 166.7 mls/hr Documented by: Iron Sucrose 200 mg/ Sodium (Chloride) 110 mls @ 200 mls/hr IVPB DAILY [facility] Stop: 01/06/19 09:32 Last Admin: 01/05/19 08:14 Dose: 200 mls/hr Documented by: Levalbuterol HCl (Xopenex) 1.25 mg IH [id number] [facility] Stop: 07/03/19 16:09 Last Admin: 01/05/19 09:34 Dose: Not Given Documented by: Levothyroxine Sodium (Synthroid) 50 mcg PO 0630 [facility] Stop: 07/06/19 06:31 Last Admin: 01/05/19 06:01 Dose: 50 mcg Documented by: Lorazepam (Ativan) 1 mg IVP Q6HR PRN PRN Reason: Anxiety Stop: 07/07/19 00:32 Last Admin: 01/05/19 00:48 Dose: 1 mg Documented by: Metoprolol Tartrate (Lopressor) 5 mg IVP Q5M PRN PRN Reason: Heart Rate- High Stop: 07/01/19 08:46 Last Admin: 01/01/19 17:48 Dose: 5 mg Documented by: Metoprolol Tartrate (Lopressor) 100 mg PO BID [facility] Stop: 07/06/19 21:01 Last Admin: 01/05/19 08:16 Dose: 100 mg Documented by: Multivitamins/Calcium (Thera M Plus) 1 tab PO DAILY [facility] Stop: 07/06/19 09:01 Last Admin: 01/05/19 08:16 Dose: 1 tab Documented by: Naloxone HCl (Narcan) 0.4 mg IVP Q2MPRN PRN PRN Reason: SEE COMMENTS Stop: 07/01/19 02:04 Potassium Chloride (Potassium Chloride) 20 meq PO DAILY [facility] Stop: 07/05/19 09:01 Last Admin: 01/05/19 08:16 Dose: 20 meq Documented by: - Imaging and Cardiology Echo: report reviewed - EKG Interpretation EKG results cardiology: other (12 hr tele AVG HR 93, A-Fib) Consult Discharge Plan - Plan Referrals: Israel Green Jr, MD [Primary Care Provider] - 01/10/19 12:00 pm
--- NOTE | 2019-01-05 14:40 | Pulmonology Consult Note ---
<Perry Campos L - Last Filed: 01/05/19 18:02> Date of Encounter: 01/05/19 Time of Encounter: 14:21 Assessment and Plan (1) Acute respiratory failure with hypoxia Current Visit: Yes Status: Acute Acute resp failure with hypoxia - In the setting of PE, Afib, pneumonitis - On high-flow nasal cannula, 35L, 55% FiO2 Plan: - Continue High flow nasal cannula, titrate to >88% Saturation - Start prednisone 60mg Daily (2) Pneumonitis Current Visit: Yes Status: Acute Pneumonitis - Persistenly elevated WBC - Peak 16.9 on 12/30/18 - CXR shows multifocal airspace opacities - CT shows diffuse consolidative and groundglass opacities - Hx of breast cancer on chemo - Procalcitonin 0.45 Plan: - PNA work-up - Aspergillus, Blastomyces, Fungitell, Histoplsma, Legionella, mycoplasma pending - Begin Bactrim for PJP coverage (3) Pulmonary embolism Current Visit: Yes Status: Acute PE - Cont Eliquis Qualifiers: Pulmonary embolism type: other Chronicity: acute Acute cor pulmonale presence: without acute cor pulmonale Qualified Code(s): I26.99 - Other pulmonary embolism without acute cor pulmonale (4) Atrial fibrillation Current Visit: Yes Status: Acute Care per Primary/Cardiology Qualifiers: Atrial fibrillation type: unspecified Qualified Code(s): I48.91 - Unspecified atrial fibrillation (5) Acute diastolic CHF (congestive heart failure), NYHA class 3 Current Visit: Yes Status: Acute CHF - Echo 01/05: :VEF 50-55%, Dilated IVC - Care per cardiology - Agree with diuresis and fluid restriction (6) Breast cancer Current Visit: Yes Status: Acute Breast cancer - Follows with Dr. Doll - Invasive ductal carcinoma of R breast - Chemo: Adriamycin and Cytoxan Qualifiers: Breast location: unspecified site of breast Estrogen receptor status: unspecified Patient sex: female Laterality: unspecified laterality Qualified Code(s): C50.919 - Malignant neoplasm of unspecified site of unsp ecified female breast History of Present Illness Consult date: 01/05/19 History of present illness: Shirley Umanzor is a 68-year-old female with a past medical history of breast cancer, hypertension, and thyroid disease. She presented to the emergency room on 12/30/18 with chief complaint weakness. 2 days prior she had had a fever and hypertension at her scheduled appointment to receive chemotherapy, she was given IV fluids and not given her chemotherapy. [facility] she was afebrile at 97.5, respiratory rate is 20, blood pressure was 83 or 52, O2 saturation is 96% on room air. Initial lactic acid was 2.0 which improved 1.03 fluids. Troponin was 0.19 with repeat of 0.12. Chest x-ray showed mild vascular congestion. CT of the chest showed patchy groundglass opacities bilaterally. EKGs were performed due to elevated heart rate, originally showed ventricular tachycardia with rate 142. Patient was admitted and treated for A. fib with RVR, pneumonitis, elevated troponin, hypokalemia, and acute renal insufficiency. Secondary admission CTA was performed due to shortness of breath and tachycardia and showed subsegmental PE in the right lower lobe. She was kept on a heparin drip for the been previously started, and later switched to eliquis. A. fib was managed with rate control, patient currently on digoxin and metoprolol. Patient's shortness of breath is worsened over the past few days. She is developed worsening pulmonary edema likely from diastolic function from A. fib. He has been diuresed with Lasix and placed on high flow O2. Pulmonology was consulted due to persistent hypoxic respiratory failure, new PE. When seen patient was lying in bed remains on high flow nasal cannula FiO2 55%, 35 L. Past Med Surg Social Fam HX - Past Medical History Medical history: cancer, hypertension, thyroid disease Additional medical history: HTN. Microcalcifications of the breast. breast lump. Carpal tunnel syndrome, Osteoporosis, sinusitis, bronchitis, step pharyngitis, venous insufficency, Varicose veins, spider veins Psychiatric history: no psych history - Past Surgical History Surgical History: cholecystectomy, hysterectomy Additional surgical history: port placement - Social History Smoking Status: Never smoker Smokeless Tobacco Status: No Alcohol use: none Drug use: none - Family History Father Hx Family Medical Disorders: Yes (Hypertension) Medications and Allergies Ca/D3/Mag#11/Zinc/Medication Reconciliation Technician/Ilia/Bor [Caltrate 600+D Plus Tablet] 2 tab PO QAM 07/09/16 [History] Multivit-Min/FA/Lycopen/Lutein [Centrum Silver Tablet] 1 tab PO DAILY 07/09/16 [History] Olmesartan/Hydrochlorothiazide [Benicar Hct 20-12.5 mg Tablet] 1 tab PO DAILY 07/09/16 [History] Levothyroxine [Synthroid] 50 mcg PO QAM 08/16/18 [History] Lidocaine/Prilocaine [Emla] 1 appl TP AD #30 gm 08/25/18 [Rx] Dexamethasone [Decadron] 4 mg PO BID #36 tab 08/27/18 [Rx] Potassium Chloride [K-Tab ER] 10 meq PO DAILY #30 tablet.er 11/15/18 [Rx] Acetaminophen [Tylenol] 500 mg PO DAILY PRN 12/30/18 [History] Prochlorperazine Maleate [Compazine] 10 mg PO Q8HR PRN 12/30/18 [History] Allergy/AdvReac Type Severity Reaction Status Date / Time adhesive tape Allergy Rash, itch Verified 12/30/18 18:41 All Systems: The remainder of the systems were reviewed and are negative Review of Systems: Constitutional: Denies fevers, chills, weight loss, generalized fatigue Head/Neck: Denies CRUZ, neck stiffness EENT: Denies vision changes/blurriness, rhinorrhea, congestion, sore throat CVS: Denies chest pain, palpitations, WIN, orthopnea, edema, PND Pulm: Denies SOB, cough, sputum, hemoptysis, wheezing GI: Denies abdominal pain, nausea, vomiting, diarrhea, constipation, melena, hematemasis : Denies dysuria, increased frequency, urgency, hematuria Heme: Denies ease of bleeding or bruising MSK: Denies joint pain, limited ROM Skin: Denies rashes, ulcers, color changes Neuro: Denies CRUZ, paresthesias, focal deficits, ataxia Physical Examination Vital Signs: Vital Signs, Last 4 Hours Temp Pulse BP Pulse Ox 01/05/19 11:12 97.9 F 92 101/56 98 Gen: Vitals noted. No acute distress. Eyes: anicteric sclerae, moist conjunctivae; no lid-lag; Pupils equal and reactive to light HENT: Atraumatic, normocephalic, hair loss due yo chemo; oropharynx clear with moist mucous membranes and no mucosal ulcerations Neck: Trachea midline; supple, no thyromegaly or lymphadenopathy Cardiac: Afib, normal rate, no murmurs, rubs or gallops, S1/S2 Pulmonary: Coarse breath sounds BL. no wheezes, rales or rhonchi, equal chest expansion Abdomen: soft, nontender, no rigidity or guarding. No masses or hepatosplenome anaid MSK: ROM intact, no joint swelling noted Extremities: no BLE edema, nontender calf, no cyanosis or clubbing Skin: Normal temperature, turgor and texture; no rash, ulcers or subcutaneous nodules Neuro: moves all extremities, no focal deficits. Psych: Appropriate mood and behavior. A&Ox3 Results - Laboratory Findings CBC and BMP: 01/05/19 05:34 01/05/19 05:34 PT/INR, D-dimer PT 13.2 Seconds (9.4-12.1) H 12/30/18 03:35 Abnormal lab findings: Abnormal lab results WBC 13.9 K/mcL (4.3-11.1) H 01/05/19 05:34 RBC 2.91 M/mcL (3.82-4.97) L 01/05/19 05:34 Hgb 8.9 g/dL (11.5-15.4) L 01/05/19 05:34 Hct 27.3 % (35.3-44.9) L 01/05/19 05:34 RDW 14.6 % (11.5-14.5) H 01/05/19 05:34 Plt Count 453 K/mcL (140-400) H 12/31/18 09:41 MPV 9.2 fL (9.4-12.4) L 01/01/19 07:14 Immature Gran % 4.2 % (0-4) H 01/05/19 05:34 Neutrophils # 10.4 K/mcL (1.6-8.9) H 01/05/19 05:34 Nucleated RBCs/100 WBC 0.6 /100 WBC (0) H 01/05/19 05:34 PT 13.2 Seconds (9.4-12.1) H 12/30/18 03:35 Heparin Anti-Xa, Unfract 0.28 IU/mL (0.30-0.70) L 01/02/19 18:50 Sodium 135 mEq/L (136-145) L 12/29/18 17:03 Potassium 3.2 mEq/L (3.5-5.1) L 01/05/19 05:34 Chloride 108 mEq/L (98-107) H 01/03/19 02:06 Carbon Dioxide 21 mEq/L (23-29) L 01/04/19 06:03 BUN 29 mg/dL (8-23) H 01/05/19 05:34 Creatinine 1.29 mg/dL (0.60-1.20) H 12/30/18 03:35 Est GFR ( Amer) 54 (> 60) L 01/05/19 05:34 Est GFR (Non-Af Amer) 45 (> 60) L 01/05/19 05:34 BUN/Creatinine Ratio 30 (6-26) H 01/02/19 04:35 Glucose 109 mg/dL (70-105) H 01/04/19 06:03 Lactic Acid 3.0 mmol/L (0.5-2.2) H 12/29/18 17:03 Uric Acid 8.0 mg/dL (2.3-7.6) H 12/29/18 17:03 Calcium 8.1 mg/dL (8.6-10.3) L 12/30/18 03:35 Iron 12 mcg/dL (50-170) L 01/03/19 02:06 % Saturation 8 % (15-50) L 01/03/19 02:06 Transferrin 105 mg/dL (203-362) L 01/03/19 02:06 Ferritin 728 ng/mL (10-120) H 01/04/19 06:03 Troponin I 0.15 ng/mL (< 0.04) H* 12/30/18 09:13 B-Natriuretic Peptide 843 pg/mL (Less than 100) H 01/05/19 13:15 Globulin 3.7 g/dL (2.4-3.5) H 12/29/18 17:03 Albumin/Globulin Ratio 1.0 (1.1-2.2) L 12/29/18 17:03 Procalcitonin 0.45 ng/mL (0.00-0.15) H 01/05/19 13:15 Urine Protein 100 mg/dL (Neg-Trace) H 12/29/18 18:15 Urine Ketones 15 mg/dL (Negative) H 12/29/18 18:15 Urine Blood Trace-intact (Negative) H 12/29/18 18:15 Ur Leukocyte Esterase Trace (Negative) H 12/29/18 18:15 Urine Microscopic RBC 3-5 per hpf (0-3) H 12/29/18 18:15 Urine Microscopic WBC 15-30 per hpf (0-3) H 12/29/18 18:15 Ur Squamous Epith Cells Many per lpf (None-Few) H 12/29/18 18:15 Ur Culture Indicated? YES (NO) A 12/29/18 18:15 - Microbiology Findings Microbiology Findings: Microbiology, Last 48 Hours 12/29/18 17:47 Blood Culture - Final Peripheral Venipuncture No growth. Final report. 12/29/18 17:03 Blood Culture - Final Peripheral Venipuncture No growth. Final report. - Clinical Findings Intake & Output: Intake & Output 01/04/19 01/05/19 01/05/19 23:59 07:59 15:59 Intake Total 440 / 1920 100 / 960 860 / 960 Output Total 400 / 3450 1100 / 1100 Balance 40 / -1530 100 / -140 -240 / -140 Consult Discharge Plan - Plan Referrals: Israel Green Jr, MD [Primary Care Provider] - 01/10/19 12:00 pm <Caden Curran S - Last Filed: 01/05/19 20:29> Date of Encounter: 01/05/19 All Systems: The remainder of the systems were reviewed and are negative Physical Examination Vital Signs: Vital Signs, Last 4 Hours Temp Pulse Resp BP Pulse Ox 01/05/19 19:59 97.7 F 97 19 105/73 96 01/05/19 16:43 18 113/70 96 01/05/19 16:28 79.9 F L 104 20 113/70 95 Results - Laboratory Findings CBC and BMP: 01/05/19 05:34 01/05/19 05:34 PT/INR, D-dimer PT 13.2 Seconds (9.4-12.1) H 12/30/18 03:35 Abnormal lab findings: Abnormal lab results WBC 13.9 K/mcL (4.3-11.1) H 01/05/19 05:34 RBC 2.91 M/mcL (3.82-4.97) L 01/05/19 05:34 Hgb 8.9 g/dL (11.5-15.4) L 01/05/19 05:34 Hct 27.3 % (35.3-44.9) L 01/05/19 05:34 RDW 14.6 % (11.5-14.5) H 01/05/19 05:34 Plt Count 453 K/mcL (140-400) H 12/31/18 09:41 MPV 9.2 fL (9.4-12.4) L 01/01/19 07:14 Immature Gran % 4.2 % (0-4) H 01/05/19 05:34 Neutrophils # 10.4 K/mcL (1.6-8.9) H 01/05/19 05:34 Nucleated RBCs/100 WBC 0.6 /100 WBC (0) H 01/05/19 05:34 PT 13.2 Seconds (9.4-12.1) H 12/30/18 03:35 Heparin Anti-Xa, Unfract 0.28 IU/mL (0.30-0.70) L 01/02/19 18:50 Sodium 135 mEq/L (136-145) L 12/29/18 17:03 Potassium 3.2 mEq/L (3.5-5.1) L 01/05/19 05:34 Chloride 108 mEq/L (98-107) H 01/03/19 02:06 Carbon Dioxide 21 mEq/L (23-29) L 01/04/19 06:03 BUN 29 mg/dL (8-23) H 01/05/19 05:34 Creatinine 1.29 mg/dL (0.60-1.20) H 12/30/18 03:35 Est GFR ( Amer) 54 (> 60) L 01/05/19 05:34 Est GFR (Non-Af Amer) 45 (> 60) L 01/05/19 05:34 BUN/Creatinine Ratio 30 (6-26) H 01/02/19 04:35 Glucose 109 mg/dL (70-105) H 01/04/19 06:03 Lactic Acid 3.0 mmol/L (0.5-2.2) H 12/29/18 17:03 Uric Acid 8.0 mg/dL (2.3-7.6) H 12/29/18 17:03 Calcium 8.1 mg/dL (8.6-10.3) L 12/30/18 03:35 Iron 12 mcg/dL (50-170) L 01/03/19 02:06 % Saturation 8 % (15-50) L 01/03/19 02:06 Transferrin 105 mg/dL (203-362) L 01/03/19 02:06 Ferritin 728 ng/mL (10-120) H 01/04/19 06:03 Troponin I 0.15 ng/mL (< 0.04) H* 12/30/18 09:13 B-Natriuretic Peptide 843 pg/mL (Less than 100) H 01/05/19 13:15 Globulin 3.7 g/dL (2.4-3.5) H 12/29/18 17:03 Albumin/Globulin Ratio 1.0 (1.1-2.2) L 12/29/18 17:03 Procalcitonin 0.45 ng/mL (0.00-0.15) H 01/05/19 13:15 Urine Protein 100 mg/dL (Neg-Trace) H 12/29/18 18:15 Urine Ketones 15 mg/dL (Negative) H 12/29/18 18:15 Urine Blood Trace-intact (Negative) H 12/29/18 18:15 Ur Leukocyte Esterase Trace (Negative) H 12/29/18 18:15 Urine Microscopic RBC 3-5 per hpf (0-3) H 12/29/18 18:15 Urine Microscopic WBC 15-30 per hpf (0-3) H 12/29/18 18:15 Ur Squamous Epith Cells Many per lpf (None-Few) H 12/29/18 18:15 Ur Culture Indicated? YES (NO) A 12/29/18 18:15 Vancomycin Trough 12 mcg/mL (5-10) H 01/05/19 19:24 - Microbiology Findings Microbiology Findings: Microbiology, Last 48 Hours 01/05/19 15:00 Legionella Antigen - Final Urine,Clean Catch 12/29/18 17:47 Blood Culture - Final Peripheral Venipuncture No growth. Final report. 12/29/18 17:03 Blood Culture - Final Peripheral Venipuncture No growth. Final report. - Clinical Findings Intake & Output: Intake & Output 0801/05/19 01/05/19 07:59 15:59 23:59 Intake Total 100 / 1610 960 / 1610 550 / 1610 Output Total 2900 / 3700 800 / 3700 Balance 100 / -2090 -1940 / -2090 -250 / -0 - Attending Attestation I saw and evaluated this patient and my medical decision-making was reviewed with the Resident Physician. I agree with the documented findings, disposition and treatment plan as described except to the extent set forth below. We independently had [id number] contact with the patient . Patient seen and examined at bedside Labs, radiology, chart personally reviewed. Management was reviewed during multidisciplinary critical care rounds. Patient has bilateral extensive groundglass consolidative opacities with air bronchograms consistent with infectious/inflammatory pneumonia post chemotherapy induced immunosuppression versus chemotherapy-induced inflammatory pneumonia we will do bacterial/atypical/fungal pneumonia workup will need the antibiotic coverage for PCP pneumonia we will also add steroid therapy as patient is p rofoundly hypoxic. The patient is not getting improved may need a bronchoscopy with BAL. Agree with broad-spectrum antibiotics pulmonary will continue to follow. Thank you very much for the consultation.
[2019-01-05] MEDS: predniSONE 20 MG TABLET PO SCH (15:05)
[2019-01-05] MEDS: Sulfamethoxazole/Trimeth DS 1 EACH TABLET PO SCH ×2 (15:07→21:02)
[2019-01-06] MEDS: Levalbuterol Neb 1.25 MG/3 ML IH SCH ×4 (04:02→22:09)
[2019-01-06 05:12] LABS: Basophils # 0.1 K/mcL (0.0-0.2); Basophils % 0.4 %; Eosinophils % 0.1 %; Hemoglobin 8.6 g/dL (11.5-15.4); Immature Granulocytes % 4.5 % (0-4); Lymphocytes # 1.5 K/mcL (0.6-4.6); Lymphocytes % 9.8 %; Mean Corpuscular HGB Conc 31.9 g/dL (31.6-35.5); Mean Corpuscular Hemoglobin 29.9 pg (28.0-33.3); Mean Corpuscular Volume 93.8 fL (83.0-100.0); Mean Platelet Volume 9.4 fL (9.4-12.4); Monocytes # 0.3 K/mcL (0.0-1.3); Monocytes % 1.8 %; Neutrophils # 12.7 K/mcL (1.6-8.9); Nucleated Red Blood Cells 0.3 /100 WBC (0); Platelet Count 378 K/mcL (140-400); Red Blood Count 2.88 M/mcL (3.82-4.97); Red Cell Distribution Width 14.6 % (11.5-14.5); Segmented Neutrophils % 83.4 %; White Blood Count 15.2 K/mcL (4.3-11.1)
[2019-01-06 05:31] LABS: Potassium 3.7 mEq/L (3.5-5.1)
[2019-01-06 05:47] LABS: Platelet Estimate Normal (Normal)
[2019-01-06] MEDS: Furosemide 40 MG/4 ML VIAL IVP SCH (08:05)
[2019-01-06] MEDS: Iron Sucrose Complex 200 MG in 0.9 % Sodium Chloride 100 ML IVPB SCH (08:06)
[2019-01-06] MEDS: Piperacillin/Tazobactam 3.375 GM in 0.9 % Sodium Chloride Mini Bag 100 ML IVPB SCH ×3 (08:07→23:42)
[2019-01-06] MEDS: Doxycycline 100 MG in 0.9 % Sodium Chloride Mini Bag 100 ML IVPB SCH ×2 (08:07→19:47)
[2019-01-06] MEDS: predniSONE 20 MG TABLET PO SCH (08:08)
[2019-01-06] MEDS: Diltiazem CD (24hr) 180 MG CAPSULE PO SCH (08:08)
[2019-01-06] MEDS: *HR* Digoxin 0.125 MG TABLET PO SCH (08:09)
[2019-01-06] MEDS: Sulfamethoxazole/Trimeth DS 1 EACH TABLET PO SCH ×3 (08:09→20:58)
[2019-01-06] MEDS: Aspirin 81 MG TAB.CHEW PO SCH (08:09)
[2019-01-06] MEDS: hydroCHLOROthiazide 25 MG TABLET PO SCH (08:09)
[2019-01-06] MEDS: Apixaban 5 MG TABLET PO SCH ×2 (08:10→20:58)
[2019-01-06] MEDS: Multivit/Ca/Min/Fe/FA 1 TAB TABLET PO SCH (08:10)
--- NOTE | 2019-01-06 08:10 | Pulmonology Progress Note ---
<Perry Campos L - Last Filed: 01/06/19 15:36> Date of Encounter: 01/06/19 Time of Encounter: 08:10 Assessment and Plan (1) Acute respiratory failure with hypoxia Current Visit: Yes Status: Acute Acute resp failure with hypoxia - In the setting of PE, Afib, pneumonitis - On high-flow nasal cannula, 35L, 55% FiO2 Plan: - Continue High flow nasal cannula, titrate to >88% Saturation - Continue prednisone 60mg Daily (2) Pneumonitis Current Visit: Yes Status: Acute Pneumonitis - Persistenly elevated WBC - Peak 16.9 on 12/30/18 - CXR shows multifocal airspace opacities - CT shows diffuse consolidative and groundglass opacities - Hx of breast cancer on chemo - Procalcitonin 0.45 - Legionella antigen negative - Cryptpococcal antigen negative - Plan: - PNA work-up - Aspergillus, Blastomyces, Fungitell, Histoplsma, mycoplasma pending - Begin Bactrim for PCP coverage (3) Pulmonary embolism Current Visit: Yes Status: Acute PE - Cont Eliquis Qualifiers: Pulmonary embolism type: other Chronicity: acute Acute cor pulmonale pre sence: without acute cor pulmonale Qualified Code(s): I26.99 - Other pulmonary embolism without acute cor pulmonale (4) Atrial fibrillation Current Visit: Yes Status: Acute Care per Primary/Cardiology Qualifiers: Atrial fibrillation type: unspecified Qualified Code(s): I48.91 - Unspecified atrial fibrillation (5) Acute diastolic CHF (congestive heart failure), NYHA class 3 Current Visit: Yes Status: Acute CHF - Echo 01/05: :VEF 50-55%, Dilated IVC - Care per cardiology - Agree with diuresis and fluid restriction (6) Breast cancer Current Visit: Yes Status: Acute Breast cancer - Follows with Dr. Doll - Invasive ductal carcinoma of R breast - Chemo: Adriamycin and Cytoxan Qualifiers: Breast location: unspecified site of breast Estrogen receptor status: unspecified Patient sex: female Laterality: unspecified laterality Qualified Code(s): C50.919 - Malignant neoplasm of unspecified site of unspecified female breast Subjective Principal diagnosis: A-Fib RVR, sepsis Interval history: Patient seen and examined. Afebrile. No overnight events. Patient says she is feeling well today. Her status improved after beginning prednisone yesterday. Continuing antibiotics for possible pneumonia. Patient denies fever. Reports shortness of breath with exertion or when being turned. Denies cough. Objective PUL Vital signs: Last Vital Signs Temp 97.6 F 01/06/19 07:37 Pulse 95 01/06/19 07:37 Resp 18 01/06/19 08:02 BP 115/64 01/06/19 07:37 Pulse Ox 93 01/06/19 08:02 Gen: Vitals noted. No acute distress. Eyes: anicteric sclerae, moist conjunctivae; no lid-lag; Pupils equal and reactive to light HENT: Atraumatic, normocephalic, hair loss due yo chemo; oropharynx clear with moist mucous membranes and no mucosal ulcerations Neck: Trachea midline; supple, no thyromegaly or lymphadenopathy Cardiac: Afib, normal rate, no murmurs, rubs or gallops, S1/S2 Pulmonary: Coarse breath sounds BL. no wheezes, rales or rhonchi, equal chest expansion Abdomen: soft, nontender, no rigidity or guarding. No masses or hepatosplenomegaly MSK: ROM intact, no joint swelling noted Extremities: no BLE edema, nontender calf, no cyanosis or clubbing Skin: Normal temperature, turgor and texture; no rash, ulcers or subcutaneous nodules Neuro: moves all extremities, no focal deficits. Psych: Appropriate mood and behavior. A&Ox3 Results - Laboratory Findings CBC and BMP: 01/06/19 03:54 01/06/19 03:54 PT/INR, D-dimer PT 13.2 Seconds (9.4-12.1) H 12/30/18 03:35 Abnormal lab findings: Abnormal lab results WBC 15.2 K/mcL (4.3-11.1) H 01/06/19 03:54 RBC 2.88 M/mcL (3.82-4.97) L 01/06/19 03:54 Hgb 8.6 g/dL (11.5-15.4) L 01/06/19 03:54 Hct 27.0 % (35.3-44.9) L 01/06/19 03:54 RDW 14.6 % (11.5-14.5) H 01/06/19 03:54 Plt Count 453 K/mcL (140-400) H 12/31/18 09:41 MPV 9.2 fL (9.4-12.4) L 01/01/19 07:14 Immature Gran % 4.5 % (0-4) H 01/06/19 03:54 Neutrophils # 12.7 K/mcL (1.6-8.9) H 01/06/19 03:54 Nucleated RBCs/100 WBC 0.3 /100 WBC (0) H 01/06/19 03:54 PT 13.2 Seconds (9.4-12.1) H 12/30/18 03:35 Heparin Anti-Xa, Unfract 0.28 IU/mL (0.30-0.70) L 01/02/19 18:50 Sodium 135 mEq/L (136-145) L 12/29/18 17:03 Potassium 3.2 mEq/L (3.5-5.1) L 01/05/19 05:34 Chloride 108 mEq/L (98-107) H 01/03/19 02:06 Carbon Dioxide 21 mEq/L (23-29) L 01/04/19 06:03 BUN 33 mg/dL (8-23) H 01/06/19 03:54 Creatinine 1.29 mg/dL (0.60-1.20) H 12/30/18 03:35 Est GFR ( Amer) 59 (> 60) L 01/06/19 03:54 Est GFR (Non-Af Amer) 48 (> 60) L 01/06/19 03:54 BUN/Creatinine Ratio 29 (6-26) H 01/06/19 03:54 Glucose 129 mg/dL (70-105) H 01/06/19 03:54 Lactic Acid 3.0 mmol/L (0.5-2.2) H 12/29/18 17:03 Uric Acid 8.0 mg/dL (2.3-7.6) H 12/29/18 17:03 Calcium 8.1 mg/dL (8.6-10.3) L 12/30/18 03:35 Iron 12 mcg/dL (50-170) L 01/03/19 02:06 % Saturation 8 % (15-50) L 01/03/19 02:06 Transferrin 105 mg/dL (203-362) L 01/03/19 02:06 Ferritin 728 ng/mL (10-120) H 01/04/19 06:03 Troponin I 0.15 ng/mL (< 0.04) H* 12/30/18 09:13 B-Natriuretic Peptide 843 pg/mL (Less than 100) H 01/05/19 13:15 Globulin 3.7 g/dL (2.4-3.5) H 12/29/18 17:03 Albumin/Globulin Ratio 1.0 (1.1-2.2) L 12/29/18 17:03 Procalcitonin 0.45 ng/mL (0.00-0.15) H 01/05/19 13:15 Urine Protein 100 mg/dL (Neg-Trace) H 12/29/18 18:15 Urine Ketones 15 mg/dL (Negative) H 12/29/18 18:15 Urine Blood Trace-intact (Negative) H 12/29/18 18:15 Ur Leukocyte Esterase Trace (Negative) H 12/29/18 18:15 Urine Microscopic RBC 3-5 per hpf (0-3) H 12/29/18 18:15 Urine Microscopic WBC 15-30 per hpf (0-3) H 12/29/18 18:15 Ur Squamous Epith Cells Many per lpf (None-Few) H 12/29/18 18:15 Ur Culture Indicated? YES (NO) A 12/29/18 18:15 Vancomycin Trough 12 mcg/mL (5-10) H 01/05/19 19:24 - Microbiology Findings Microbiology Findings: Microbiology, Last 48 Hours 01/05/19 15:00 Legionella Antigen - Final Urine,Clean Catch - Clinical Findings Intake & Output: Intake & Output 01/05/19 01/06/19 01/06/19 23:59 07:59 15:59 Intake Total 1010 / 2070 400 / 400 Output Total 1200 / 4100 600 / 600 Balance -190 / -2030 -200 / -200 Weight 86.5 kg Consult Discharge Plan - Plan Referrals: Israel Green Jr, MD [Primary Care Provider] - 01/10/19 12:00 pm <Caden Curran - Last Filed: 01/06/19 21:12> Date of Encounter: 01/06/19 Objective PUL Vital signs: Last Vital Signs Temp 98.0 F 01/06/19 19:41 Pulse 136 01/06/19 19:41 Resp 18 01/06/19 19:41 BP 112/59 01/06/19 19:41 Pulse Ox 95 01/06/19 19:41 Results - Laboratory Findings CBC and BMP: 01/06/19 03:54 01/06/19 03:54 PT/INR, D-dimer PT 13.2 Seconds (9.4-12.1) H 12/30/18 03:35 Abnormal lab findings: Abnormal lab results WBC 15.2 K/mcL (4.3-11.1) H 01/06/19 03:54 RBC 2.88 M/mcL (3.82-4.97) L 01/06/19 03:54 Hgb 8.6 g/dL (11.5-15.4) L 01/06/19 03:54 Hct 27.0 % (35.3-44.9) L 01/06/19 03:54 RDW 14.6 % (11.5-14.5) H 01/06/19 03:54 Plt Count 453 K/mcL (140-400) H 12/31/18 09:41 MPV 9.2 fL (9.4-12.4) L 01/01/19 07:14 Immature Gran % 4.5 % (0-4) H 01/06/19 03:54 Neutrophils # 12.7 K/mcL (1.6-8.9) H 01/06/19 03:54 Nucleated RBCs/100 WBC 0.3 /100 WBC (0) H 01/06/19 03:54 Percent Retic 3.3 % (1.6-2.8) H 01/06/19 16:41 Retic Hgb Equivalent 28.0 pg (28.61-36.33) L 01/06/19 16:41 PT 13.2 Seconds (9.4-12.1) H 12/30/18 03:35 Heparin Anti-Xa, Unfract 0.28 IU/mL (0.30-0.70) L 01/02/19 18:50 Sodium 135 mEq/L (136-145) L 12/29/18 17:03 Potassium 3.2 mEq/L (3.5-5.1) L 01/05/19 05:34 Chloride 108 mEq/L (98-107) H 01/03/19 02:06 Carbon Dioxide 21 mEq/L (23-29) L 01/04/19 06:03 BUN 33 mg/dL (8-23) H 01/06/19 03:54 Creatinine 1.29 mg/dL (0.60-1.20) H 12/30/18 03:35 Est GFR ( Amer) 59 (> 60) L 01/06/19 03:54 Est GFR (Non-Af Amer) 48 (> 60) L 01/06/19 03:54 BUN/Creatinine Ratio 29 (6-26) H 01/06/19 03:54 Glucose 129 mg/dL (70-105) H 01/06/19 03:54 Lactic Acid 3.0 mmol/L (0.5-2.2) H 12/29/18 17:03 Uric Acid 8.0 mg/dL (2.3-7.6) H 12/29/18 17:03 Calcium 8.1 mg/dL (8.6-10.3) L 12/30/18 03:35 Iron 12 mcg/dL (50-170) L 01/03/19 02:06 % Saturation 8 % (15-50) L 01/03/19 02:06 Transferrin 105 mg/dL (203-362) L 01/03/19 02:06 Ferritin 728 ng/mL (10-120) H 01/04/19 06:03 Troponin I 0.15 ng/mL (< 0.04) H* 12/30/18 09:13 B-Natriuretic Peptide 843 pg/mL (Less than 100) H 01/05/19 13:15 Globulin 3.7 g/dL (2.4-3.5) H 12/29/18 17:03 Albumin/Globulin Ratio 1.0 (1.1-2.2) L 12/29/18 17:03 Folate 17.2 ng/mL (3.0-16.0) H 01/06/19 11:49 Procalcitonin 0.45 ng/mL (0.00-0.15) H 01/05/19 13:15 Urine Protein 100 mg/dL (Neg-Trace) H 12/29/18 18:15 Urine Ketones 15 mg/dL (Negative) H 12/29/18 18:15 Urine Blood Trace-intact (Negative) H 12/29/18 18:15 Ur Leukocyte Esterase Trace (Negative) H 12/29/18 18:15 Urine Microscopic RBC 3-5 per hpf (0-3) H 12/29/18 18:15 Urine Microscopic WBC 15-30 per hpf (0-3) H 12/29/18 18:15 Ur Squamous Epith Cells Many per lpf (None-Few) H 12/29/18 18:15 Ur Culture Indicated? YES (NO) A 12/29/18 18:15 Vancomycin Trough 12 mcg/mL (5-10) H 01/05/19 19:24 - Microbiology Findings Microbiology Findings: Microbiology, Last 48 Hours 01/05/19 14:28 Cryptococcal Antigen - Final Serum 01/05/19 15:00 Legionella Antigen - Final Urine,Clean Catch - Clinical Findings Intake & Output: Intake & Output 01/06/19 01/06/19 01/06/19 07:59 15:59 23:59 Intake Total 400 / 2670 1190 / 2670 1080 / 2670 Output Total 600 / 3050 1550 / 3050 900 / 3050 Balance -200 / -380 -360 / -380 180 / -380 Weight 86.5 kg - Attending Attestation I saw and evaluated this patient and my medical decision-making was reviewed with the Resident Physician. I agree with the documented findings, disposition and treatment plan as described except to the extent set forth below. We independently had axop-ed-aevb contact with the patient Patient seen and examined at bedside Labs, radiology, chart personally reviewed. Patient presented with acute hypoxic respiratory failure complicated by heart failure and possible infectious/inflammatory pneumonia. Started on steroids and treatment for PCP pneumonia so far workup negative patient is improving on steroids. Possible inflammatory pneumonia secondary to chemotherapeutic agents can be a possibility in that case patient will need a prolonged prednisone therapy. Patient needs to be established with outpatient pulmonary at some point. We will schedule an appointment before discharge.
--- NOTE | 2019-01-06 08:19 | Internal Med Progress Note ---
Hospitalist Progress Note - Encounter Date of Encounter: 01/06/19 Time of Encounter: 09:00 - Subjective Interval History: No acute events overnight - Exam Vitals: Temp Pulse Resp BP Pulse Ox 97.6 F 95 18 115/64 93 01/06/19 07:37 01/06/19 07:37 01/06/19 08:02 01/06/19 07:37 01/06/19 08:02 Exam: GENERAL: Mild respiratory distress. Alert and Oriented HEENT: EOMI, PERRLA MOUTH: Moist oral mucosA NECK:No JVD, No lymph nodes. CHEST AND LUNGS: Few crackles at lung bases. No wheezing HEART: S1 and S2 normal, irregular, no murmurs ABDOMEN: Soft, nontender, no organomegaly SKIN: Normal color, no rahses, no lesions EXTREMITIES: No deformity, no edema, no tenderness, no joint swelling or clubbing NEUROLOGICAL: Normal cognition, normal motor and sensory exam. - Assessment and Plan (1) Acute respiratory failure with hypoxia Current Visit: Yes Status: Acute Assessment and Plan: Likely multifactorial secondary to PE, and pneumonitis from chemotherapy and possible pneumonia She is on high flow oxygen via nasal cannula. Seen by pulmonary and started on steroids Continue anticoagulation for PE and pnuemonia work up with aspergillus, Blastomyces, Fungitell, Histoplsma, Legionella, mycoplasma pending Continue steroids and bactrim for possible PCP pneumonia Attempt to wean down oxygen as tolerated (2) Pneumonitis Current Visit: Yes Status: Acute Assessment and Plan: CXR shows multifocal airspace opacities. CT shows diffuse consolidative and groundglass opacities. Has history of breast cancer on chemotherapy May be secondary to atypical pneumonia vs pneumonitis from cyclophosphamide chemotherapy. Started on bactrim for PCP pneumonia per pulmonary. Aspergillus, Blastomyces, Fungitell, Histoplsma, Legionella, mycoplasma pending for atypical pneumonia (3) Atrial fibrillation Current Visit: Yes Status: Acute Assessment and Plan: Rate controlled. PO Cardizem has been increased to 360 mg daily Lopressor currently at 75 mg twice a day CHADVasc Score of 3 Continue on Eliquis (4) Hypokalemia Current Visit: Yes Status: Resolved Assessment and Plan: Potassium 3.6 this morning. On PO Potassium chloride 20mg daily. (5) Pulmonary embolism Current Visit: Yes Status: Acute Assessment and Plan: Patient remains on high flow oxygen She denies chest pain Vitals are stable except for an irregularly irregular rapid pulse Subsegmental PE in the right lower lobe on CT angiogram No evidence of right ventricular strain She has been started on by mouth Eliquis (6) Anemia Current Visit: Yes Status: Chronic Assessment and Plan: Hemoglobin stable at 8.3. Normocytic Iron profile shows a mixed picture of iron deficiency anemia and anemia of chronic disease Iron levels of 12, ferritin 728. Will give IV iron. (7) Breast cancer Current Visit: Yes Status: Acute Assessment and Plan: Management per oncology team as outpatient (8) Acute diastolic CHF (congestive heart failure), NYHA class 3 Current Visit: Yes Status: Acute Assessment and Plan: Acute worsening of chronic diastolic CHF. Continue lasix (9) DVT prophylaxis Current Visit: Yes Status: Acute Assessment and Plan: Eliquis - Time Spent with Patient Total time spent is greater than 50% in coordination of care (as documented) at patient's floor/unit and/or counseling patient: Internal Medicine: Result - Labs CBC & Chem 7: 01/06/19 03:54 01/06/19 03:54 Labs: Short CBC 01/06/19 Range/Units 03:54 WBC 15.2 H (4.3-11.1) K/mcL Hgb 8.6 L (11.5-15.4) g/dL Hct 27.0 L (35.3-44.9) % Plt Count 378 (140-400) K/mcL Neutrophils # 12.7 H (1.6-8.9) K/mcL BMP 01/06/19 03:54 Sodium 140 Potassium 3.7 Chloride 105 Carbon Dioxide 24 BUN 33 H Creatinine 1.12 Glucose 129 H Calcium 9.0 - ABG Interpretation ABG results: PT/INR, D-dimer PT 13.2 Seconds (9.4-12.1) H 12/30/18 03:35 - Impressions Impressions Echocardiogram Limited Views 01/05/19 11:13 Impressions: LVEF 50-55%. Normal LV chamber size and wall thickness. The IVC is dilated. Left Ventricular Wall Motion: Rest Echo Findings All wall segments showed normal motion. Findings: Study Quality * Technically adequate exam. ECG Findings * Atrial fibrillation. Left Ventricle * LVEF 50-55%. * Normal LV chamber size and wall thickness. IVC * The IVC is dilated. Consult Discharge Plan - Plan Referrals: Israel Green Jr, MD [Primary Care Provider] - 01/10/19 12:00 pm (3) Atrial fibrillation Qualifiers: Atrial fibrillation type: unspecified Qualified Code(s): I48.91 - Unspecified atrial fibrillation (5) Pulmonary embolism Qualifiers: Pulmonary embolism type: other Chronicity: acute Acute cor pulmonale presence: without acute cor pulmonale Qualified Code(s): I26.99 - Other pulmonary embolism without acute cor pulmonale (6) Anemia Qualifiers: Anemia type: other cause Other causes of anemia: chronic disease, neoplastic Qualified Code(s): D63.0 - Anemia in neoplastic disease (7) Breast cancer Qualifiers: Breast location: unspecified site of breast Estrogen receptor status: unspecified Patient sex: female Laterality: unspecified laterality Qualified Code(s): C50.919 - Malignant neoplasm of unspecified site of unspecified female breast
--- NOTE | 2019-01-06 11:38 | Oncology Inp Consult Note ---
<Khadar Stoddard - Last Filed: 01/06/19 16:14> Date of Encounter: 01/06/19 Time of Encounter: 11:00 Assessment and Plan (1) Anemia Status: Acute Assessment and plan: Acute worsened anemia, presented with Hgb 11.7, down to 8.6 Appears to have an element of bone marrow suppression. Has evidence of nucleated RBCs Patient does have history of Adriamycin and Cytoxan use, which is risk for bone marrow dysplasia Additionally has iron studies consistent with mixed KB + Chronic disease Will order Flow cytometry, Peripheral smear, BCR-ABL, Translocatipon 15;17 FSH. Patient may benefit from BMB in future Will continue to monitor Qualifiers: Anemia type: other cause Other causes of anemia: chronic disease, neoplastic Qualified Code(s): D63.0 - Anemia in neoplastic disease (2) Acute respiratory failure with hypoxia Status: Acute Assessment and plan: Secondary to Pneumonitis, Afib RVR, Heart Failure with Preserved EF It is possible that the patient's chemo agent is involved in her respiratory process Agree with current antibiotic and diuretic management No further changes (3) Breast cancer Status: Acute Assessment and plan: History of invasive ductal carcinoma, on Taxol. Last cycle 12/20 Qualifiers: Breast location: unspecified site of breast Estrogen receptor status: unspecified Patient sex: female Laterality: unspecified laterality Qualified Code(s): C50.919 - Malignant neoplasm of unspecified site of unspecified female breast - Data of Consult Patient: known to practice within the last 3 years Consult date: 01/06/19 Requesting Physician: Swathi Pitts MD Primary Care Provider: Israel Green Jr, MD - Consult Narrative Reason for consult: History of Right Breast Cancerr History of present illness: Ms. Umanzor is a 68yo woman who presented to [facility] on 12/29/18 for weakness, fever and generalized malaise along with some shortness of breath. Hematology and oncology were consulted on 01/06/19 because the patient has known history of invasive ductal carcinoma on chemotherapy. In short, Ms. Umanzor is a 68yo woman with history of HTN, hypothyroidism, and invasive ductal carcinoma who presented to the ED on 12/30/18 due to weakness and hypotension. She initially started experiencing weakness and hypotension on 12/27 when she had presented to the cancer Center for chemotherapy at which time she was noted to be febrile and hypotensive. At that time she was not given her chemotherapy and instead received IV fluids. The patient states that initially she had started to feel better, however when she went home she started to feel little bit worse. She also complained of shortness of breath which was not severe, however she notes it is Progressively worse over the course of her stay here. She notes that she did have a fever of 103 in the outpatient setting. She denies any productive cough, and notes that she does have decreased appetite and has had some diarrhea associated with this. She denies any hematochezia. In the emergency department, the patient was found to have a heart rate of 142 consistent with Afib RVR, with a prolonged QTc. CT of the chest found crazy paving consistent with pneumonitis, however she later had a CTA demonstrating small subsegmental PE in the right lower lung pulmonary artery. Over the course of her stay, the patient has become increasingly hypoxic with higher O2 demand, and has needed high dose steroids as well. Cardiology was consulted for the management of Afib who started her on eliquis, lopressor, cardizem and digoxin. Oncology Hx Invasive ductal carcinoma of the right breast measuring by ultrasound 2.1 x 1.6 x 1.8 cm in size without any palpable/axillary lymphadenopathy on imaging, grade 3, ER/[place] and HER-2/jessica negative, imaging findings, pathology results reviewed with patient in detail. Rt axillary clip/bx neg s/p Adriamycin and Cytoxan chemotherapy cycle 1 08/27/18. MUGA nl 55.5%. Taxol Cycle 6 on 12/20/18 Past Med Surg Social Fam HX - Past Medical History Medical history: cancer, hypertension, thyroid disease Additional medical history: HTN. Microcalcifications of the breast. breast lump. Carpal tunnel syndrome, Osteoporosis, sinusitis, bronchitis, step pharyngitis, venous insufficency, Varicose veins, spider veins Psychiatric history: no psych history - Past Surgical History Surgical History: cholecystectomy, hysterectomy Additional surgical history: port placement - Social History Smoking Status: Never smoker Smokeless Tobacco Status: No Alcohol use: none Drug use: none - Family History Father Hx Family Medical Disorders: Yes (Hypertension) Medications and Allergies Ca/D3/Mag#11/Zinc/Asbestos Removal Worker/Ilia/Bor [Caltrate 600+D Plus Tablet] 2 tab PO QAM 07/09/16 [History] Multivit-Min/FA/Lycopen/Lutein [Centrum Silver Tablet] 1 tab PO DAILY 07/09/16 [History] Olmesartan/Hydrochlorothiazide [Benicar Hct 20-12.5 mg Tablet] 1 tab PO DAILY 07/09/16 [History] Levothyroxine [Synthroid] 50 mcg PO QAM 08/16/18 [History] Lidocaine/Prilocaine [Emla] 1 appl TP AD #30 gm 08/25/18 [Rx] Dexamethasone [Decadron] 4 mg PO BID #36 tab 08/27/18 [Rx] Potassium Chloride [K-Tab ER] 10 meq PO DAILY #30 tablet.er 11/15/18 [Rx] Acetaminophen [Tylenol] 500 mg PO DAILY PRN 12/30/18 [History] Prochlorperazine Maleate [Compazine] 10 mg PO Q8HR PRN 12/30/18 [History] Allergy/AdvReac Type Severity Reaction Status Date / Time adhesive tape Allergy Rash, itch Verified 12/30/18 18:41 Review of systems: Constitutional: Admits to fevers, chills, weight loss, generalized fatigue Head/Neck: Denies CRUZ, neck stiffness EENT: Denies vision changes/blurriness, rhinorrhea, congestion, sore throat CVS: Denies chest pain, palpitations, WIN, orthopnea, edema, PND Pulm: Admits to SOB, cough, wheezing. Denies sputum production, hemoptysis GI: Denies abdominal pain, nausea, vomiting, constipation, melena, hematemasis. Admits to some diarrhea previously : Denies dysuria, increased frequency, urgency, hematuria Heme: Denies ease of bleeding or bruising MSK: Denies joint pain, limited ROM Skin: Denies rashes, ulcers, color changes Neuro: Denies CRUZ, paresthesias, focal deficits, ataxia Oncology - Exam - Constitutional Exam: Gen: Vitals noted. No acute distress. Eyes: anicteric sclerae, moist conjunctivae; no lid-lag; Pupils equal and reactive to light HENT: Atraumatic; oropharynx clear with moist mucous membranes and no mucosal ulcerations; normal hard and soft palate Neck: Trachea midline; supple, no thyromegaly or lymphadenopathy Cardiac: Irregularly irregular, no murmur, +S1/S2 Pulmonary: CTA bilaterally, no wheezes, rales or rhonchi, equal chest expansion. On high flow O2 at time of exam Abdomen: soft, nontender, no guarding. No masses or hepatosplenomegaly MSK: ROM intact, no joint swelling noted Extremities: no BLE edema, nontender calf, no cyanosis or clubbing Skin: Normal temperature, turgor and texture; no rash, ulcers or subcutaneous nodules Neuro: moves all extremities, no focal deficits. Psych: Appropriate mood and behavior. A&Ox3 Consult Discharge Plan - Plan Referrals: Israel Green Jr, MD [Primary Care Provider] - 01/10/19 12:00 pm Inpatient Charges Provider: Dr. Domenic Rico <Mirella Ricomsi - Last Filed: 01/06/19 16:27> Date of Encounter: 01/06/19 - Data of Consult Requesting Physician: Swathi Pitts MD Primary Care Provider: Israel Green Jr, MD Inpatient Charges Provider: Dr. Domenic Rico Consult - Inpatient: [id number] - Attending Attestation I examined this patient and my medical decision-making was reviewed with the Advanced Practice Nurse. I agree with the documented findings, disposition and treatment plan as described except to the extent set forth below. Patient clinically improving with antibiotics, steroids, and diuresis Will check peripheral blood flow cytometry, peripheral blood smear, PCR BCR-ABL, FISH for t (15;17). Patient may benefit from BMB in future once she has clinically improved. Thank you for the consult. We will continue to follow along with you.
[2019-01-06 12:58] LABS: Folate 17.2 ng/mL (3.0-16.0)
[2019-01-06 17:20] LABS: Immature Reticulocyte % 31.6 % (11.0-38.0); Retculocyte # 0.1 M/mcL (0.05-0.10); Reticulocyte % 3.3 % (1.6-2.8)
[2019-01-07] MEDS: Levalbuterol Neb 1.25 MG/3 ML IH SCH ×4 (03:41→23:13)
[2019-01-07 06:35] LABS: Basophils # 0.1 K/mcL (0.0-0.2); Basophils % 0.2 %; Hemoglobin 9.5 g/dL (11.5-15.4); Immature Granulocytes % 4.2 % (0-4); Lymphocytes # 2.4 K/mcL (0.6-4.6); Lymphocytes % 9.6 %; Mean Corpuscular HGB Conc 32.8 g/dL (31.6-35.5); Mean Corpuscular Hemoglobin 31.1 pg (28.0-33.3); Mean Corpuscular Volume 95.1 fL (83.0-100.0); Mean Platelet Volume 9.3 fL (9.4-12.4); Monocytes % 4.2 %; Neutrophils # 20.3 K/mcL (1.6-8.9); Nucleated Red Blood Cells 0.3 /100 WBC (0); Platelet Count 411 K/mcL (140-400); Red Blood Count 3.05 M/mcL (3.82-4.97); Red Cell Distribution Width 14.8 % (11.5-14.5); Segmented Neutrophils % 81.8 %
[2019-01-07 06:37] LABS: White Blood Count 24.8 K/mcL (4.3-11.1)
[2019-01-07 06:50] LABS: Calcium 9.6 mg/dL (8.6-10.3); Potassium 3.5 mEq/L (3.5-5.1)
--- NOTE | 2019-01-07 08:20 | Internal Med Progress Note ---
Hospitalist Progress Note - Encounter Date of Encounter: 01/07/19 Time of Encounter: 09:00 - Subjective Interval History: No acute events overnight - Exam Vitals: Temp Pulse Resp BP Pulse Ox 97.8 F 102 19 97/77 97 01/07/19 07:35 01/07/19 07:35 01/07/19 07:35 01/07/19 07:35 01/07/19 07:35 Exam: GENERAL: Mild respiratory distress. Alert and Oriented HEENT: EOMI, PERRLA MOUTH: Moist oral mucosA NECK:No JVD, No lymph nodes. CHEST AND LUNGS: Few crackles at lung bases. No wheezing HEART: S1 and S2 normal, irregular, no murmurs ABDOMEN: Soft, nontender, no organomegaly SKIN: Normal color, no rahses, no lesions EXTREMITIES: No deformity, no edema, no tenderness, no joint swelling or clubbing NEUROLOGICAL: Normal cognition, normal motor and sensory exam. - Assessment and Plan (1) Acute respiratory failure with hypoxia Current Visit: Yes Status: Acute Assessment and Plan: Likely multifactorial secondary to PE, and pneumonitis from chemotherapy and possible pneumonia She is on high flow oxygen via nasal cannula. Seen by pulmonary and started on steroids Continue anticoagulation for PE and pnuemonia work up with aspergillus, Blastomyces, Fungitell, Histoplsma, Legionella, mycoplasma pending Continue steroids and bactrim for possible PCP pneumonia Attempt to wean down oxygen as tolerated. OXygenation improving (2) Pneumonitis Current Visit: Yes Status: Acute Assessment and Plan: CXR shows multifocal airspace opacities. CT shows diffuse consolidative and groundglass opacities. Has history of breast cancer on chemotherapy May be secondary to atypical pneumonia vs pneumonitis from cyclophosphamide chemotherapy. Started on bactrim for PCP pneumonia per pulmonary. Aspergillus, Blastomyces, Fungitell, Histoplsma, Legionella, mycoplasma pending for atypical pneumonia (3) Atrial fibrillation Current Visit: Yes Status: Acute Assessment and Plan: Rate controlled. PO Cardizem has been increased to 360 mg daily Lopressor currently at 75 mg twice a day CHADVasc Score of 3 Continue on Eliquis (4) Hypokalemia Current Visit: Yes Status: Resolved Assessment and Plan: Potassium 3.6 this morning. On PO Potassium chloride 20mg daily. (5) Pulmonary embolism Current Visit: Yes Status: Acute Assessment and Plan: Vitals are stable except for an irregularly irregular rapid pulse Subsegmental PE in the right lower lobe on CT angiogram No evidence of right ventricular strain She has been started on by mouth Eliquis (6) Anemia Current Visit: Yes Status: Acute Assessment and Plan: Hemoglobin stable at 8.3. Normocytic Iron profile shows a mixed picture of iron deficiency anemia and anemia of chronic disease Iron levels of 12, ferritin 728. Will give IV iron. (7) Breast cancer Current Visit: Yes Status: Acute Assessment and Plan: Management per oncology team as outpatient (8) Acute diastolic CHF (congestive heart failure), NYHA class 3 Current Visit: Yes Status: Acute Assessment and Plan: Acute worsening of chronic diastolic CHF. Continue lasix (9) DVT prophylaxis Current Visit: Yes Status: Acute Assessment and Plan: Eliquis - Time Spent with Patient Total time spent is greater than 50% in coordination of care (as documented) at patient's floor/unit and/or counseling patient: Internal Medicine: Result - Labs CBC & Chem 7: 01/07/19 06:20 01/07/19 06:20 Labs: Short CBC 01/07/19 Range/Units 06:20 WBC 24.8 H D (4.3-11.1) K/mcL Hgb 9.5 L (11.5-15.4) g/dL Hct 29.0 L (35.3-44.9) % Plt Count 411 H (140-400) K/mcL Neutrophils # 20.3 H (1.6-8.9) K/mcL BMP 01/07/19 06:20 Sodium 139 Potassium 3.5 Chloride 102 Carbon Dioxide 27 BUN 38 H Creatinine 1.27 H Glucose 112 H Calcium 9.6 - ABG Interpretation ABG results: PT/INR, D-dimer PT 13.2 Seconds (9.4-12.1) H 12/30/18 03:35 Consult Discharge Plan - Plan Referrals: Israel Green Jr, MD [Primary Care Provider] - 01/17/19 3:00 pm (3) Atrial fibrillation Qualifiers: Atrial fibrillation type: unspecified Qualified Code(s): I48.91 - Unspecified atrial fibrillation (5) Pulmonary embolism Qualifiers: Pulmonary embolism type: other Chronicity: acute Acute cor pulmonale presence: without acute cor pulmonale Qualified Code(s): I26.99 - Other pulmonary embolism without acute cor pulmonale (6) Anemia Qualifiers: Anemia type: other cause Other causes of anemia: chronic disease, neoplastic Qualified Code(s): D63.0 - Anemia in neoplastic disease (7) Breast cancer Qualifiers: Breast location: unspecified site of breast Estrogen receptor status: unspecified Patient sex: female Laterality: unspecified laterality Qualified Code(s): C50.919 - Malignant neoplasm of unspecified site of unspecified female breast
--- NOTE | 2019-01-07 08:33 | Pulmonology Progress Note ---
<DeveneileensushilCaden S - Last Filed: 01/07/19 13:34> Date of Encounter: 01/07/19 Objective PUL Vital signs: Last Vital Signs Temp 97.7 F 01/07/19 11:25 Pulse 94 01/07/19 11:25 Resp 20 01/07/19 11:25 BP 100/56 01/07/19 11:25 Pulse Ox 97 01/07/19 11:25 Results - Laboratory Findings CBC and BMP: 01/07/19 06:20 01/07/19 06:20 PT/INR, D-dimer PT 13.2 Seconds (9.4-12.1) H 12/30/18 03:35 Abnormal lab findings: Abnormal lab results WBC 24.8 K/mcL (4.3-11.1) H D 01/07/19 06:20 RBC 3.05 M/mcL (3.82-4.97) L 01/07/19 06:20 Hgb 9.5 g/dL (11.5-15.4) L 01/07/19 06:20 Hct 29.0 % (35.3-44.9) L 01/07/19 06:20 RDW 14.8 % (11.5-14.5) H 01/07/19 06:20 Plt Count 411 K/mcL (140-400) H 01/07/19 06:20 MPV 9.3 fL (9.4-12.4) L 01/07/19 06:20 Immature Gran % 4.2 % (0-4) H 01/07/19 06:20 Neutrophils # 20.3 K/mcL (1.6-8.9) H 01/07/19 06:20 Nucleated RBCs/100 WBC 0.3 /100 WBC (0) H 01/07/19 06:20 Percent Retic 3.3 % (1.6-2.8) H 01/06/19 16:41 Retic Hgb Equivalent 28.0 pg (28.61-36.33) L 01/06/19 16:41 PT 13.2 Seconds (9.4-12.1) H 12/30/18 03:35 Heparin Anti-Xa, Unfract 0.28 IU/mL (0.30-0.70) L 01/02/19 18:50 Sodium 135 mEq/L (136-145) L 12/29/18 17:03 Potassium 3.2 mEq/L (3.5-5.1) L 01/05/19 05:34 Chloride 108 mEq/L (98-107) H 01/03/19 02:06 Carbon Dioxide 21 mEq/L (23-29) L 01/04/19 06:03 BUN 38 mg/dL (8-23) H 01/07/19 06:20 Creatinine 1.27 mg/dL (0.60-1.20) H 01/07/19 06:20 Est GFR ( Amer) 51 (> 60) L 01/07/19 06:20 Est GFR (Non-Af Amer) 42 (> 60) L 01/07/19 06:20 BUN/Creatinine Ratio 30 (6-26) H 01/07/19 06:20 Glucose 112 mg/dL (70-105) H 01/07/19 06:20 Lactic Acid 3.0 mmol/L (0.5-2.2) H 12/29/18 17:03 Uric Acid 8.0 mg/dL (2.3-7.6) H 12/29/18 17:03 Calcium 8.1 mg/dL (8.6-10.3) L 12/30/18 03:35 Iron 12 mcg/dL (50-170) L 01/03/19 02:06 % Saturation 8 % (15-50) L 01/03/19 02:06 Transferrin 105 mg/dL (203-362) L 01/03/19 02:06 Ferritin 728 ng/mL (10-120) H 01/04/19 06:03 Troponin I 0.15 ng/mL (< 0.04) H* 12/30/18 09:13 B-Natriuretic Peptide 843 pg/mL (Less than 100) H 01/05/19 13:15 Globulin 3.7 g/dL (2.4-3.5) H 12/29/18 17:03 Albumin/Globulin Ratio 1.0 (1.1-2.2) L 12/29/18 17:03 Folate 17.2 ng/mL (3.0-16.0) H 01/06/19 11:49 Procalcitonin 0.45 ng/mL (0.00-0.15) H 01/05/19 13:15 Urine Protein 100 mg/dL (Neg-Trace) H 12/29/18 18:15 Urine Ketones 15 mg/dL (Negative) H 12/29/18 18:15 Urine Blood Trace-intact (Negative) H 12/29/18 18:15 Ur Leukocyte Esterase Trace (Negative) H 12/29/18 18:15 Urine Microscopic RBC 3-5 per hpf (0-3) H 12/29/18 18:15 Urine Microscopic WBC 15-30 per hpf (0-3) H 12/29/18 18:15 Ur Squamous Epith Cells Many per lpf (None-Few) H 12/29/18 18:15 Ur Culture Indicated? YES (NO) A 12/29/18 18:15 Vancomycin Trough 12 mcg/mL (5-10) H 01/05/19 19:24 - Microbiology Findings Microbiology Findings: Microbiology, Last 48 Hours 01/05/19 14:28 Cryptococcal Antigen - Final Serum 01/05/19 15:00 Legionella Antigen - Final Urine,Clean Catch - Clinical Findings Intake & Output: Intake & Output 01/06/19 01/07/19 01/07/19 23:59 07:59 15:59 Intake Total 1330 / 2920 500 / 840 340 / 840 Output Total 900 / 3050 800 / 800 Balance 430 / -130 -300 / 40 340 / 40 Weight 86.2 kg Consult Discharge Plan - Plan Referrals: Israel Green Jr, MD [Primary Care Provider] - 01/17/19 3:00 pm - Attending Attestation I saw and evaluated this patient and my medical decision-making was reviewed with the Resident Physician. I agree with the documented findings, disposition and treatment plan as described except to the extent set forth below. We independently had [id number] contact with the patient Patient seen and examined at bedside Labs, radiology, chart personally reviewed. Patient presented with acute hypoxic respiratory failure after chemotherapy for her breast cancer patient was having a regimen which has the cyclophosphamide can be due to inflammatory pneumonitis due to chemotherapeutic agent as well as a she is turning around with the steroids to keep the prednisone at least 40 mg daily until we see her as an outpatient in 4 weeks and we will reevaluate and repeat imaging and decide about the need for transbronchial biopsy. To continue the current regimen de-escalate antibiotics to stop vancomycin today. <Perry Campos - Last Filed: 01/07/19 13:40> Date of Encounter: 01/07/19 Time of Encounter: 10:49 Assessment and Plan (1) Acute respiratory failure with hypoxia Current Visit: Yes Status: Acute Acute resp failure with hypoxia - In the setting of PE, Afib, pneumonitis - On high-flow nasal cannula, 35L, 55% FiO2 Plan: - Continue Supplemental O2 vis nasal cannula - Continue prednisone 60mg Daily - Will need presnisone until outpatient follow-up with pulmonology (2) Pneumonitis Current Visit: Yes Status: Acute Pneumonitis - Persistenly elevated WBC - Peak 16.9 on 12/30/18 - CXR shows multifocal airspace opacities - CT shows diffuse consolidative and groundglass opacities - Hx of breast cancer on chemo - Procalcitonin 0.45 - Legionella antigen negative - Cryptpococcal antigen negative - Blood cultures: no growth Plan: - PNA work-up - Aspergillus, Blastomyces, Fungitell, Histoplsma, mycoplasma pending - Bactrim for PCP coverage (3) Pulmonary embolism Current Visit: Yes Status: Acute PE - Cont Eliquis Qualifiers: Pulmonary embolism type: other Chronicity: acute Acute cor pulmonale presence: without acute cor pulmonale Qualified Code(s): I26.99 - Other pulmonary embolism without acute cor pulmonale (4) Atrial fibrillation Current Visit: Yes Status: Acute Care per Primary/Cardiology Qualifiers: Atrial fibrillation type: unspecified Qualified Code(s): I48.91 - Unspecified atrial fibrillation (5) Acute diastolic CHF (congestive heart failure), NYHA class 3 Current Visit: Yes Status: Acute CHF - Echo 01/05: :VEF 50-55%, Dilated IVC - Care per cardiology - Agree with diuresis and fluid restriction (6) Breast cancer Current Visit: Yes Status: Acute Breast cancer - Follows with Dr. Doll - Invasive ductal carcinoma of R breast - Chemo: Adriamycin and Cytoxan Qualifiers: Breast location: unspecified site of breast Estrogen receptor status: unspecified Patient sex: female Laterality: unspecified laterality Qualified Code(s): C50.919 - Malignant neoplasm of unspecified site of unspecified female breast Subjective Principal diagnosis: A-Fib RVR, sepsis Interval history: Patient seen and examined. Afebrile. No overnight events. Respiratory status improving, no longer using high flow nasal cannula. Denies shortness of breath or cough. Objective PUL Vital signs: Last Vital Signs Temp 97.8 F 01/07/19 07:35 Pulse 102 01/07/19 07:35 Resp 19 01/07/19 07:35 BP 97/77 01/07/19 07:35 Pulse Ox 97 01/07/19 07:35 Gen: Vitals noted. No acute distress. Lying comfortably in bed Eyes: anicteric sclerae, moist conjunctivae. Pupils equal, round, and reactive to light HENT: Atraumatic, normocephalic, hair loss due yo chemo; oropharynx clear with moist mucous membranes and no mucosal ulcerations Neck: Trachea midline, no thyromegaly or lymphadenopathy Cardiac: Afib, normal rate, no murmurs, rubs or gallops, S1/S2 Pulmonary: Coarse breath sounds BL. no wheezes, rales, crackles, or rhonchi, equal chest expansion Abdomen: soft, nontender, no rigidity or guarding. No masses or hepatosplenomegaly MSK: ROM intact, no joint swelling noted Extremities: no BLE edema, nontender calf, no cyanosis or clubbing Skin: Normal temperature, turgor and texture; no rash, ulcers or subcutaneous nodules Neuro: moves all extremities, no focal deficits. Psych: Appropriate mood and behavior. A&Ox3 Results - Laboratory Findings CBC and BMP: 01/07/19 06:20 01/07/19 06:20 PT/INR, D-dimer PT 13.2 Seconds (9.4-12.1) H 12/30/18 03:35 Abnormal lab findings: Abnormal lab results WBC 24.8 K/mcL (4.3-11.1) H D 01/07/19 06:20 RBC 3.05 M/mcL (3.82-4.97) L 01/07/19 06:20 Hgb 9.5 g/dL (11.5-15.4) L 01/07/19 06:20 Hct 29.0 % (35.3-44.9) L 01/07/19 06:20 RDW 14.8 % (11.5-14.5) H 01/07/19 06:20 Plt Count 411 K/mcL (140-400) H 01/07/19 06:20 MPV 9.3 fL (9.4-12.4) L 01/07/19 06:20 Immature Gran % 4.2 % (0-4) H 01/07/19 06:20 Neutrophils # 20.3 K/mcL (1.6-8.9) H 01/07/19 06:20 Nucleated RBCs/100 WBC 0.3 /100 WBC (0) H 01/07/19 06:20 Percent Retic 3.3 % (1.6-2.8) H 01/06/19 16:41 Retic Hgb Equivalent 28.0 pg (28.61-36.33) L 01/06/19 16:41 PT 13.2 Seconds (9.4-12.1) H 12/30/18 03:35 Heparin Anti-Xa, Unfract 0.28 IU/mL (0.30-0.70) L 01/02/19 18:50 Sodium 135 mEq/L (136-145) L 12/29/18 17:03 Potassium 3.2 mEq/L (3.5-5.1) L 01/05/19 05:34 Chloride 108 mEq/L (98-107) H 01/03/19 02:06 Carbon Dioxide 21 mEq/L (23-29) L 01/04/19 06:03 BUN 38 mg/dL (8-23) H 01/07/19 06:20 Creatinine 1.27 mg/dL (0.60-1.20) H 01/07/19 06:20 Est GFR ( Amer) 51 (> 60) L 01/07/19 06:20 Est GFR (Non-Af Amer) 42 (> 60) L 01/07/19 06:20 BUN/Creatinine Ratio 30 (6-26) H 01/07/19 06:20 Glucose 112 mg/dL (70-105) H 01/07/19 06:20 Lactic Acid 3.0 mmol/L (0.5-2.2) H 12/29/18 17:03 Uric Acid 8.0 mg/dL (2.3-7.6) H 12/29/18 17:03 Calcium 8.1 mg/dL (8.6-10.3) L 12/30/18 03:35 Iron 12 mcg/dL (50-170) L 01/03/19 02:06 % Saturation 8 % (15-50) L 01/03/19 02:06 Transferrin 105 mg/dL (203-362) L 01/03/19 02:06 Ferritin 728 ng/mL (10-120) H 01/04/19 06:03 Troponin I 0.15 ng/mL (< 0.04) H* 12/30/18 09:13 B-Natriuretic Peptide 843 pg/mL (Less than 100) H 01/05/19 13:15 Globulin 3.7 g/dL (2.4-3.5) H 12/29/18 17:03 Albumin/Globulin Ratio 1.0 (1.1-2.2) L 12/29/18 17:03 Folate 17.2 ng/mL (3.0-16.0) H 01/06/19 11:49 Procalcitonin 0.45 ng/mL (0.00-0.15) H 01/05/19 13:15 Urine Protein 100 mg/dL (Neg-Trace) H 12/29/18 18:15 Urine Ketones 15 mg/dL (Negative) H 12/29/18 18:15 Urine Blood Trace-intact (Negative) H 12/29/18 18:15 Ur Leukocyte Esterase Trace (Negative) H 12/29/18 18:15 Urine Microscopic RBC 3-5 per hpf (0-3) H 12/29/18 18:15 Urine Microscopic WBC 15-30 per hpf (0-3) H 12/29/18 18:15 Ur Squamous Epith Cells Many per lpf (None-Few) H 12/29/18 18:15 Ur Culture Indicated? YES (NO) A 12/29/18 18:15 Vancomycin Trough 12 mcg/mL (5-10) H 01/05/19 19:24 - Microbiology Findings Microbiology Findings: Microbiology, Last 48 Hours 01/05/19 14:28 Cryptococcal Antigen - Final Serum 01/05/19 15:00 Legionella Antigen - Final Urine,Clean Catch - Clinical Findings Intake & Output: Intake & Output 01/06/19 01/07/19 01/07/19 23:59 07:59 15:59 Intake Total 1330 / 2920 500 / 500 Output Total 900 / 3050 800 / 800 Balance 430 / -130 -300 / -300 Weight 86.2 kg
[2019-01-07] MEDS: Doxycycline 100 MG in 0.9 % Sodium Chloride Mini Bag 100 ML IVPB SCH ×2 (08:35→19:46)
[2019-01-07] MEDS: Sulfamethoxazole/Trimeth DS 1 EACH TABLET PO SCH ×3 (08:36→20:38)
[2019-01-07] MEDS: Piperacillin/Tazobactam 3.375 GM in 0.9 % Sodium Chloride Mini Bag 100 ML IVPB SCH ×3 (08:36→23:23)
[2019-01-07] MEDS: Diltiazem CD (24hr) 180 MG CAPSULE PO SCH (08:37)
[2019-01-07] MEDS: Apixaban 5 MG TABLET PO SCH ×2 (08:37→20:38)
[2019-01-07] MEDS: Multivit/Ca/Min/Fe/FA 1 TAB TABLET PO SCH (08:37)
[2019-01-07] MEDS: Aspirin 81 MG TAB.CHEW PO SCH (08:37)
[2019-01-07] MEDS: predniSONE 20 MG TABLET PO SCH (08:37)
[2019-01-07] MEDS: hydroCHLOROthiazide 25 MG TABLET PO SCH (08:39)
[2019-01-07] MEDS: *HR* Digoxin 0.125 MG TABLET PO SCH (08:40)
[2019-01-07] MEDS ORDERED: Aminoglycoside Consult 1 EACH MC ONE (13:49)
--- NOTE | 2019-01-07 14:30 | Oncology Inp Progress Note ---
<Khadar Stoddard - Last Filed: 01/07/19 18:42> Date of Encounter: 01/07/19 Time of Encounter: 10:45 (1) Anemia Current Visit: Yes Status: Acute Assessment and plan: Acute worsened anemia, presented with Hgb 11.7, down to 8.6 Appears to have an element of bone marrow suppression. Has evidence of nucleated RBCs Patient does have history of Adriamycin and Cytoxan use, which is risk for bone marrow dysplasia Additionally has iron studies consistent with mixed KB + Chronic disease Flow cytometry, Peripheral smear, BCR-ABL, Translocation 15;17 FISH pending. Patient may benefit from BMB in future Will continue to monitor alongside, no recommendations at this time Qualifiers: Anemia type: other cause Other causes of anemia: chronic disease, neoplastic Qualified Code(s): D63.0 - Anemia in neoplastic disease (2) Acute respiratory failure with hypoxia Current Visit: Yes Status: Acute Assessment and plan: Secondary to Pneumonitis, Afib RVR, Heart Failure with Preserved EF It is possible that the patient's chemo agent is involved in her respiratory process Agree with current antibiotic and diuretic management No further changes (3) Breast cancer Current Visit: Yes Status: Acute Assessment and plan: History of invasive ductal carcinoma, on Taxol. Last cycle 12/20 Qualifiers: Breast location: unspecified site of breast Estrogen receptor status: unspecified Patient sex: female Laterality: unspecified laterality Qualifi ed Code(s): C50.919 - Malignant neoplasm of unspecified site of unspecified female breast Oncology: Subj Interval history: Patient is resting comfortably in bed at tme of examination. She is breathing better today and feels more comfortable. She is accompanied by her who asks multiple questions about her current status. - Constitutional Exam: Gen: Vitals noted. No acute distress. Eyes: anicteric sclerae, moist conjunctivae; no lid-lag; Pupils equal and reactive to light HENT: Atraumatic; oropharynx clear with moist mucous membranes and no mucosal ulcerations; normal hard and soft palate Neck: Trachea midline; supple, no thyromegaly or lymphadenopathy Cardiac: Irregularly irregular, no murmur, +S1/S2 Pulmonary: CTA bilaterally, no wheezes, rales or rhonchi, equal chest expansion. On high flow O2 at time of exam Abdomen: soft, nontender, no guarding. No masses or hepatosplenomegaly MSK: ROM intact, no joint swelling noted Extremities: no BLE edema, nontender calf, no cyanosis or clubbing Skin: Normal temperature, turgor and texture; no rash, ulcers or subcutaneous nodules Neuro: moves all extremities, no focal deficits. Psych: Appropriate mood and behavior. A&Ox3 Oncology: Obj Data - Labs CBC & Chem 7: 01/07/19 06:20 01/07/19 06:20 Consult Discharge Plan - Plan Referrals: Israel Green Jr, MD [Primary Care Provider] - 01/17/19 3:00 pm <June Martinez S - Last Filed: 01/07/19 18:49> Date of Encounter: 01/07/19 Oncology: Obj Data - Labs CBC & Chem 7: 01/07/19 06:20 01/07/19 06:20 Inpatient Charges Provider: Dr. Jennifer Martinez Follow up - Inpatient: [id number] - Attending Attestation I examined this patient and my medical decision-making was reviewed with the Dr. Khadar Stoddard. I agree with the documented findings, disposition and treatment plan as described except to the extent set forth below. 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 Stage II Right axillary lymph node biopsy negative and Negative Neoadjuvant chemotherapy s/p Adriamycin and Cytoxan chemotherapy cycle 1 on 08/27/18. MUGA nl 55.5%. Taxol weekly. She is admitted with hypotension and fever improving with conservative management. Also hypoxic respiratory failure likely pulmonary toxicity from chemotherapy Anemia secondary to chemotherapy. Iron profile showed high ferritin low TIBC and low iron saturation indicating anemia of chronic disease. B12 folate normal. Elevated neutrophil count likely from steroids Had a long discussion with the patient and the . Given the amount of toxicity she may not be a candidate for further chemotherapy. Clinically she had a good response in the breast mass is not palpable. She is planning to do lumpectomy with Dr. narvaez. We will make an appointment Dr. Dewitt next week to discuss further plan of action
[2019-01-07 16:40] LABS: A.galactomannan Ag Index 0.04
[2019-01-08] MEDS: Levalbuterol Neb 1.25 MG/3 ML IH SCH ×4 (04:08→22:25)
[2019-01-08] MEDS: Diltiazem CD (24hr) 180 MG CAPSULE PO SCH (07:30)
[2019-01-08] MEDS: *HR* Digoxin 0.125 MG TABLET PO SCH (07:30)
[2019-01-08] MEDS: predniSONE 20 MG TABLET PO SCH (07:30)
[2019-01-08] MEDS: Sulfamethoxazole/Trimeth DS 1 EACH TABLET PO SCH ×3 (07:31→20:18)
[2019-01-08] MEDS: Apixaban 5 MG TABLET PO SCH ×2 (07:31→20:18)
[2019-01-08] MEDS: Multivit/Ca/Min/Fe/FA 1 TAB TABLET PO SCH (07:31)
[2019-01-08] MEDS: Piperacillin/Tazobactam 3.375 GM in 0.9 % Sodium Chloride Mini Bag 100 ML IVPB SCH ×3 (07:31→23:33)
[2019-01-08] MEDS: Aspirin 81 MG TAB.CHEW PO SCH (07:31)
[2019-01-08] MEDS: hydroCHLOROthiazide 25 MG TABLET PO SCH (07:31)
[2019-01-08] MEDS: Doxycycline 100 MG in 0.9 % Sodium Chloride Mini Bag 100 ML IVPB SCH ×2 (07:32→19:34)
[2019-01-08 08:08] LABS: Mycoplasma pneumoniae IgG 0.1 U/L (<=0.09)
--- NOTE | 2019-01-08 08:15 | Internal Med Progress Note ---
Hospitalist Progress Note - Encounter Date of Encounter: 01/08/19 Time of Encounter: 08:00 - Subjective Interval History: No acute events overnight - Exam Vitals: Temp Pulse Resp BP Pulse Ox 97.7 F 86 16 119/70 95 01/08/19 07:56 01/08/19 07:56 01/08/19 07:56 01/08/19 07:56 01/08/19 07:56 Exam: GENERAL: Mild respiratory distress. Alert and Oriented HEENT: EOMI, PERRLA MOUTH: Moist oral mucosA NECK:No JVD, No lymph nodes. CHEST AND LUNGS: Few crackles at lung bases. No wheezing HEART: S1 and S2 normal, irregular, no murmurs ABDOMEN: Soft, nontender, no organomegaly SKIN: Normal color, no rahses, no lesions EXTREMITIES: No deformity, no edema, no tenderness, no joint swelling or clubbing NEUROLOGICAL: Normal cognition, normal motor and sensory exam. - Assessment and Plan (1) Acute respiratory failure with hypoxia Current Visit: Yes Status: Acute Assessment and Plan: Likely multifactorial secondary to PE, and pneumonitis from chemotherapy and possible pneumonia She is on high flow oxygen via nasal cannula. Seen by pulmonary and started on steroids Continue anticoagulation for PE and pnuemonia work up with aspergillus, Blastomyces, Fungitell, Histoplsma, Legionella, mycoplasma pending Continue steroids and bactrim for possible PCP pneumonia Attempt to wean down oxygen as tolerated. OXygenation improving (2) Pneumonitis Current Visit: Yes Status: Acute Assessment and Plan: CXR shows multifocal airspace opacities. CT shows diffuse consolidative and groundglass opacities. Has history of breast cancer on chemotherapy May be secondary to atypical pneumonia vs pneumonitis from cyclophosphamide chemotherapy. Started on bactrim for PCP pneumonia per pulmonary. Aspergillus, Blastomyces, Fungitell, Histoplsma, Legionella, mycoplasma studies not suggestive of infection (3) Atrial fibrillation Current Visit: Yes Status: Acute Assessment and Plan: Rate controlled. PO Cardizem has been increased to 360 mg daily Lopressor currently at 75 mg twice a day CHADVasc Score of 3 Continue on Eliquis (4) Hypokalemia Current Visit: Yes Status: Resolved Assessment and Plan: Potassium 3.6 this morning. On PO Potassium chloride 20mg daily. (5) Pulmonary embolism Current Visit: Yes Status: Acute Assessment and Plan: Vitals are stable except for an irregularly irregular rapid pulse Subsegmental PE in the right lower lobe on CT angiogram No evidence of right ventricular strain She has been started on by mouth Eliquis (6) Anemia Current Visit: Yes Status: Acute Assessment and Plan: Hemoglobin stable at 8.3. Normocytic Iron profile shows a mixed picture of iron deficiency anemia and anemia of chronic disease Iron levels of 12, ferritin 728. Will give IV iron. (7) Breast cancer Current Visit: Yes Status: Acute Assessment and Plan: Management per oncology team as outpatient (8) Acute diastolic CHF (congestive heart failure), NYHA class 3 Current Visit: Yes Status: Acute Assessment and Plan: Acute worsening of chronic diastolic CHF. Continue lasix (9) DVT prophylaxis Current Visit: Yes Status: Acute Assessment and Plan: Eliquis - Time Spent with Patient Total time spent is greater than 50% in coordination of care (as documented) at patient's floor/unit and/or counseling patient: Internal Medicine: Result - Labs CBC & Chem 7: 01/08/19 08:37 01/08/19 08:37 - ABG Interpretation ABG results: PT/INR, D-dimer PT 13.2 Seconds (9.4-12.1) H 12/30/18 03:35 Consult Discharge Plan - Plan Referrals: Israel Green Jr, MD [Primary Care Provider] - 01/17/19 3:00 pm (3) Atrial fibrillation Qualifiers: Atrial fibrillation type: unspecified Qualified Code(s): I48.91 - Unspecified atrial fibrillation (5) Pulmonary embolism Qualifiers: Pulmonary embolism type: other Chronicity: acute Acute cor pulmonale presence: without acute cor pulmonale Qualified Code(s): I26.99 - Other pulmonary embolism without acute cor pulmonale (6) Anemia Qualifiers: Anemia type: other cause Other causes of anemia: chronic disease, neoplastic Qualified Code(s): D63.0 - Anemia in neoplastic disease (7) Breast cancer Qualifiers: Breast location: unspecified site of breast Estrogen receptor status: unspecified Patient sex: female Laterality: unspecified laterality Qualified Code(s): C50.919 - Malignant neoplasm of unspecified site of unspecified female breast
[2019-01-08 08:50] LABS: Aspergillus fumigatus IgE <0.10 kU/L (<=0.34)
[2019-01-08 08:56] LABS: Basophils # 0.1 K/mcL (0.0-0.2); Basophils % 0.2 %; Hematocrit 29.1 % (35.3-44.9); Hemoglobin 9.6 g/dL (11.5-15.4); Immature Granulocytes % 4.1 % (0-4); Lymphocytes # 3.2 K/mcL (0.6-4.6); Lymphocytes % 11.8 %; Mean Corpuscular Hemoglobin 31.2 pg (28.0-33.3); Mean Corpuscular Volume 94.5 fL (83.0-100.0); Mean Platelet Volume 9.5 fL (9.4-12.4); Monocytes # 1.5 K/mcL (0.0-1.3); Monocytes % 5.6 %; Nucleated Red Blood Cells 0.3 /100 WBC (0); Platelet Count 424 K/mcL (140-400); Red Blood Count 3.08 M/mcL (3.82-4.97); Red Cell Distribution Width 15.3 % (11.5-14.5); Segmented Neutrophils % 78.3 %; White Blood Count 27.4 K/mcL (4.3-11.1)
[2019-01-08 08:57] LABS: Neutrophils # 21.5 K/mcL (1.6-8.9)
[2019-01-08 09:08] LABS: Calcium 9.2 mg/dL (8.6-10.3); Potassium 4.4 mEq/L (3.5-5.1)
--- NOTE | 2019-01-08 09:36 | Pulmonology Progress Note ---
Date of Encounter: 01/08/19 Time of Encounter: 08:00 Assessment and Plan (1) Acute respiratory failure with hypoxia Current Visit: Yes Status: Acute Most likely due to pneumonitis and complicated by hydrostatic pulmonary edema due to diastolic heart failure (2) Pneumonitis Current Visit: Yes Status: Acute Patient presented with bilateral groundglass with consolidative opacities po ssible bacterial/atypical pneumonia versus inflammatory pneumonia secondary to chemotherapeutic agent as patient is cyclophosphamide which can cause inflammatory pneumonitis patient is on broad-spectrum antibiotics de-escalating antibiotics patient responded well to steroid therapy. Counseled the family that the patient needs to be on at least 40 mg daily steroids for the next at least 4-6 weeks and we will reevaluate with imaging. Patient verbalized understanding according to oncology no more chemotherapy because of the toxicity. Patient will proceed for surgery for her breast cancer. (3) Pulmonary embolism Current Visit: Yes Status: Acute To continue oral anticoagulation. Qualifiers: Pulmonary embolism type: other Chronicity: acute Acute cor pulmonale presence: without acute cor pulmonale Qualified Code(s): I26.99 - Other pulmonary embolism without acute cor pulmonale (4) Acute diastolic CHF (congestive heart failure), NYHA class 3 Current Visit: Yes Status: Acute To continue diuresis according to primary team (5) Breast cancer Current Visit: Yes Status: Acute Patientis breast cancer with neoadjuvant chemotherapy had side effects oncology recommended to proceed with surgery Qualifiers: Breast location: unspecified site of breast Estrogen receptor status: unspecified Patient sex: female Laterality: unspecified laterality Qualif ied Code(s): C50.919 - Malignant neoplasm of unspecified site of unspecified female breast Subjective Principal diagnosis: A-Fib RVR, sepsis Objective PUL Vital signs: Last Vital Signs Temp 97.7 F 01/08/19 07:56 Pulse 86 01/08/19 07:56 Resp 16 01/08/19 07:56 BP 119/70 01/08/19 07:56 Pulse Ox 95 01/08/19 07:56 Results - Laboratory Findings CBC and BMP: 01/08/19 08:37 01/08/19 08:37 PT/INR, D-dimer PT 13.2 Seconds (9.4-12.1) H 12/30/18 03:35 Abnormal lab findings: Abnormal lab results WBC 27.4 K/mcL (4.3-11.1) H 01/08/19 08:37 RBC 3.08 M/mcL (3.82-4.97) L 01/08/19 08:37 Hgb 9.6 g/dL (11.5-15.4) L 01/08/19 08:37 Hct 29.1 % (35.3-44.9) L 01/08/19 08:37 RDW 15.3 % (11.5-14.5) H 01/08/19 08:37 Plt Count 424 K/mcL (140-400) H 01/08/19 08:37 MPV 9.3 fL (9.4-12.4) L 01/07/19 06:20 Immature Gran % 4.2 % (0-4) H 01/07/19 06:20 Neutrophils # 20.3 K/mcL (1.6-8.9) H 01/07/19 06:20 Nucleated RBCs/100 WBC 0.3 /100 WBC (0) H 01/08/19 08:37 Percent Retic 3.3 % (1.6-2.8) H 01/06/19 16:41 Retic Hgb Equivalent 28.0 pg (28.61-36.33) L 01/06/19 16:41 PT 13.2 Seconds (9.4-12.1) H 12/30/18 03:35 Heparin Anti-Xa, Unfract 0.28 IU/mL (0.30-0.70) L 01/02/19 18:50 Sodium 135 mEq/L (136-145) L 12/29/18 17:03 Potassium 3.2 mEq/L (3.5-5.1) L 01/05/19 05:34 Chloride 108 mEq/L (98-107) H 01/03/19 02:06 Carbon Dioxide 22 mEq/L (23-29) L 01/08/19 08:37 BUN 41 mg/dL (8-23) H 01/08/19 08:37 Creatinine 1.22 mg/dL (0.60-1.20) H 01/08/19 08:37 Est GFR ( Amer) 53 (> 60) L 01/08/19 08:37 Est GFR (Non-Af Amer) 44 (> 60) L 01/08/19 08:37 BUN/Creatinine Ratio 34 (6-26) H 01/08/19 08:37 Glucose 112 mg/dL (70-105) H 01/07/19 06:20 Lactic Acid 3.0 mmol/L (0.5-2.2) H 12/29/18 17:03 Uric Acid 8.0 mg/dL (2.3-7.6) H 12/29/18 17:03 Calcium 8.1 mg/dL (8.6-10.3) L 12/30/18 03:35 Iron 12 mcg/dL (50-170) L 01/03/19 02:06 % Saturation 8 % (15-50) L 01/03/19 02:06 Transferrin 105 mg/dL (203-362) L 01/03/19 02:06 Ferritin 728 ng/mL (10-120) H 01/04/19 06:03 Troponin I 0.15 ng/mL (< 0.04) H* 12/30/18 09:13 B-Natriuretic Peptide 843 pg/mL (Less than 100) H 01/05/19 13:15 Globulin 3.7 g/dL (2.4-3.5) H 12/29/18 17:03 Albumin/Globulin Ratio 1.0 (1.1-2.2) L 12/29/18 17:03 Folate 17.2 ng/mL (3.0-16.0) H 01/06/19 11:49 Procalcitonin 0.45 ng/mL (0.00-0.15) H 01/05/19 13:15 Urine Protein 100 mg/dL (Neg-Trace) H 12/29/18 18:15 Urine Ketones 15 mg/dL (Negative) H 12/29/18 18:15 Urine Blood Trace-intact (Negative) H 12/29/18 18:15 Ur Leukocyte Esterase Trace (Negative) H 12/29/18 18:15 Urine Microscopic RBC 3-5 per hpf (0-3) H 12/29/18 18:15 Urine Microscopic WBC 15-30 per hpf (0-3) H 12/29/18 18:15 Ur Squamous Epith Cells Many per lpf (None-Few) H 12/29/18 18:15 Ur Culture Indicated? YES (NO) A 12/29/18 18:15 Vancomycin Trough 12 mcg/mL (5-10) H 01/05/19 19:24 Mycoplasma pneumon IgG 0.10 U/L (<=0.09) H 01/05/19 14:28 - Microbiology Findings Microbiology Findings: Microbiology, Last 48 Hours 01/05/19 14:28 Cryptococcal Antigen - Final Serum - Clinical Findings Intake & Output: Intake & Output 01/07/19 01/08/19 01/08/19 23:59 07:59 15:59 Intake Total 1340 / 2520 100 / 100 Output Total 600 / 1500 700 / 700 Balance 740 / 1020 -600 / -600 Weight 86.4 kg Consult Discharge Plan - Plan Referrals: Israel Green Jr, MD [Primary Care Provider] - 01/17/19 3:00 pm
[2019-01-08 10:31] LABS: Anisocytosis 1+ (Not Present); Hypochromasia Present (Not Present); Platelet Estimate Normal (Normal)
[2019-01-09 02:18] LABS: Basophils % 0.2 %; Hematocrit 26.9 % (35.3-44.9); Hemoglobin 8.6 g/dL (11.5-15.4); Immature Granulocytes % 4.5 % (0-4); Lymphocytes # 2.3 K/mcL (0.6-4.6); Lymphocytes % 9.6 %; Mean Corpuscular Hemoglobin 30.7 pg (28.0-33.3); Mean Corpuscular Volume 96.1 fL (83.0-100.0); Mean Platelet Volume 9.5 fL (9.4-12.4); Monocytes # 1.1 K/mcL (0.0-1.3); Monocytes % 4.4 %; Neutrophils # 19.7 K/mcL (1.6-8.9); Nucleated Red Blood Cells 0.2 /100 WBC (0); Platelet Count 360 K/mcL (140-400); Red Cell Distribution Width 15.5 % (11.5-14.5); Segmented Neutrophils % 81.3 %; White Blood Count 24.2 K/mcL (4.3-11.1)
[2019-01-09 02:33] LABS: Magnesium 1.9 mg/dL (1.6-2.6); Phosphorous 3.8 mg/dL (2.7-4.5); Potassium 4.7 mEq/L (3.5-5.1)
[2019-01-09] MEDS: Levalbuterol Neb 1.25 MG/3 ML IH SCH ×2 (03:46→11:38)
[2019-01-09] MEDS: Diltiazem CD (24hr) 180 MG CAPSULE PO SCH (07:23)
[2019-01-09] MEDS: Apixaban 5 MG TABLET PO SCH (07:23)
[2019-01-09] MEDS: hydroCHLOROthiazide 25 MG TABLET PO SCH (07:23)
[2019-01-09] MEDS: *HR* Digoxin 0.125 MG TABLET PO SCH (07:23)
[2019-01-09] MEDS: Aspirin 81 MG TAB.CHEW PO SCH (07:23)
[2019-01-09] MEDS: Sulfamethoxazole/Trimeth DS 1 EACH TABLET PO SCH (07:24)
[2019-01-09] MEDS: predniSONE 20 MG TABLET PO SCH (07:24)
[2019-01-09] MEDS: Multivit/Ca/Min/Fe/FA 1 TAB TABLET PO SCH (07:24)
[2019-01-09] MEDS: Doxycycline 100 MG in 0.9 % Sodium Chloride Mini Bag 100 ML IVPB SCH (07:26)
[2019-01-09] MEDS: Piperacillin/Tazobactam 3.375 GM in 0.9 % Sodium Chloride Mini Bag 100 ML IVPB SCH (07:27)
--- NOTE | 2019-01-09 08:13 | Internal Med Progress Note ---
Hospitalist Progress Note - Encounter Date of Encounter: 01/09/19 Time of Encounter: 09:00 - Subjective Interval History: No acute events overnight - Exam Vitals: Temp Pulse Resp BP Pulse Ox 97.7 F 100 20 108/68 92 01/09/19 07:21 01/09/19 07:27 01/09/19 07:21 01/09/19 07:21 01/09/19 07:21 Exam: GENERAL: Mild respiratory distress. Alert and Oriented HEENT: EOMI, PERRLA MOUTH: Moist oral mucosA NECK:No JVD, No lymph nodes. CHEST AND LUNGS: Few crackles at lung bases. No wheezing HEART: S1 and S2 normal, irregular, no murmurs ABDOMEN: Soft, nontender, no organomegaly SKIN: Normal color, no rahses, no lesions EXTREMITIES: No deformity, no edema, no tenderness, no joint swelling or clubbing NEUROLOGICAL: Normal cognition, normal motor and sensory exam. - Assessment and Plan (1) Acute respiratory failure with hypoxia Current Visit: Yes Status: Acute Assessment and Plan: Likely multifactorial secondary to PE, and pneumonitis from chemotherapy and possible pneumonia She is on high flow oxygen via nasal cannula. Seen by pulmonary and started on steroids Continue anticoagulation for PE and pnuemonia work up with aspergillus, Blastomyces, Fungitell, Histoplsma, Legionella, mycoplasma pending Continue steroids and bactrim for possible PCP pneumonia Attempt to wean down oxygen as tolerated. OXygenation improving (2) Pneumonitis Current Visit: Yes Status: Acute Assessment and Plan: CXR shows multifocal airspace opacities. CT shows diffuse consolidative and groundglass opacities. Has history of breast cancer on chemotherapy May be secondary to atypical pneumonia vs pneumonitis from cyclophosphamide chemotherapy. Started on bactrim for PCP pneumonia per pulmonary. Aspergillus, Blastomyces, Fungitell, Histoplsma, Legionella, mycoplasma studies not suggestive of infection (3) Atrial fibrillation Current Visit: Yes Status: Acute Assessment and Plan: Rate controlled. PO Cardizem has been increased to 360 mg daily Lopressor currently at 75 mg twice a day CHADVasc Score of 3 Continue on Eliquis (4) Hypokalemia Current Visit: Yes Status: Resolved Assessment and Plan: Potassium 3.6 this morning. On PO Potassium chloride 20mg daily. (5) Pulmonary embolism Current Visit: Yes Status: Acute Assessment and Plan: Vitals are stable except for an irregularly irregular rapid pulse Subsegmental PE in the right lower lobe on CT angiogram No evidence of right ventricular strain She has been started on by mouth Eliquis (6) Anemia Current Visit: Yes Status: Acute Assessment and Plan: Hemoglobin stable at 8.3. Normocytic Iron profile shows a mixed picture of iron deficiency anemia and anemia of chronic disease Iron levels of 12, ferritin 728. Will give IV iron. (7) Breast cancer Current Visit: Yes Status: Acute Assessment and Plan: Management per oncology team as outpatient (8) Acute diastolic CHF (congestive heart failure), NYHA class 3 Current Visit: Yes Status: Acute Assessment and Plan: Acute worsening of chronic diastolic CHF. Continue lasix (9) DVT prophylaxis Current Visit: Yes Status: Acute Assessment and Plan: Eliquis - Time Spent with Patient Total time spent is greater than 50% in coordination of care (as documented) at patient's floor/unit and/or counseling patient: Internal Medicine: Result - Labs CBC & Chem 7: 01/09/19 01:52 01/09/19 01:52 Labs: Short CBC 01/08/19 01/09/19 Range/Units 08:37 01:52 WBC 27.4 H 24.2 H (4.3-11.1) K/mcL Hgb 9.6 L 8.6 L (11.5-15.4) g/dL Hct 29.1 L 26.9 L (35.3-44.9) % Plt Count 424 H 360 (140-400) K/mcL Neutrophils # 21.5 H 19.7 H (1.6-8.9) K/mcL BMP 01/08/19 01/09/19 08:37 01:52 Sodium 137 134 L Potassium 4.4 4.7 Chloride 105 105 Carbon Dioxide 22 L 21 L BUN 41 H 47 H Creatinine 1.22 H 1.40 H Glucose 99 116 H Calcium 9.2 9.0 - ABG Interpretation ABG results: PT/INR, D-dimer PT 13.2 Seconds (9.4-12.1) H 12/30/18 03:35 Consult Discharge Plan - Plan Instructions: Metoprolol (By mouth), Diltiazem (By mouth), Digoxin (By mouth), Furosemide (By mouth), Doxycycline (By mouth), Prednisone (By mouth), Aspirin (By mouth), Losartan (By mouth), Apixaban (By mouth), Pulmonary Embolism (DC) Additional Instructions: Follow-up appointments: If there is not an appointment listed below, please call your physician and schedule a follow-up appointment. If you have congestive heart failure and your symptoms return, make an appointment with your physician. Medication List: Carry an up to date list of medications you are taking at all time. We have given you an updated medication list including any new medications that you have been prescribed. Please provide that list to your primary provider Symptoms: If your condition changes or you experience any of the following symptoms, notify your physician immediately: Unusual or worsening pain, fever, persistent nausea and vomiting, bleeding, increase in swelling (especially in your legs), sudden weight gain, extreme dizziness, chest pain, increased drainage or redness from a wound or incision. Go to the emergency department if you experience a problem with breathing. Referrals: Israel Green Jr, MD [Primary Care Provider] - 01/17/19 3:00 pm Caden Curran MD [Partnered Physician] - (made web request, office to call patient at home with appointment date and time.) Prescriptions: Aspirin 81 mg PO DAILY #60 tab.chew Diltiazem CD (24hr) [Cardizem CD] 360 mg PO DAILY #60 cap.er.24h Losartan [Cozaar] 25 mg PO DAILY #60 tablet Doxycycline 100 mg PO BID 7 Days #14 capsule Apixaban [Eliquis] 5 mg PO BID #60 tablet Apixaban [Eliquis] 10 mg PO BID 1 Days #1 tablet Digoxin [Lanoxin] 0.0625 mg PO DAILY #60 tablet Furosemide [Lasix] 20 mg PO DAILY 30 Days #30 tablet Metoprolol [Lopressor] 100 mg PO BID #60 tablet predniSONE [PredniSONE] 40 mg PO DAILY 30 Days #60 tablet (3) Atrial fibrillation Qualifiers: Atrial fibrillation type: unspecified Qualified Code(s): I48.91 - Unspecified atrial fibrillation (5) Pulmonary embolism Qualifiers: Pulmonary embolism type: other Chronicity: acute Acute cor pulmonale presence: without acute cor pulmonale Qualified Code(s): I26.99 - Other pulmonary embolism without acute cor pulmonale (6) Anemia Qualifiers: Anemia type: other cause Other causes of anemia: chronic disease, neoplastic Qualified Code(s): D63.0 - Anemia in neoplastic disease (7) Breast cancer Qualifiers: Breast location: unspecified site of breast Estrogen receptor status: unspecified Patient sex: female Laterality: unspecified laterality Qualified Code(s): C50.919 - Malignant neoplasm of unspecified site of unspecified female breast
--- NOTE | 2019-01-09 08:20 | Pulmonology Progress Note ---
Date of Encounter: 01/09/19 Time of Encounter: 08:00 Assessment and Plan (1) Acute respiratory failure with hypoxia Current Visit: Yes Status: Acute Most likely due to pneumonitis and complicated by hydrostatic pulmonary edema due to diastolic heart failure. Patient responded well to steroids patient back on room air will keep the steroids 40 mg once daily for at least for 4 weeks and evaluated in outpatient pulmonology and taper from that time after repeat CT chest with contrast during that time. (2) Pneumonitis Current Visit: Yes Status: Acute Patient presented with bilateral groundglass with consolidative opacities possible bacterial/atypical pneumonia versus inflammatory pneumonia secondary to chemotherapeutic agent as patient was on cyclophosphamide which can cause inflammatory pneumonitis patient is on broad-spectrum antibiotics de-escalating antibiotics patient responded well to steroid therapy. Counseled the family that the patient needs to be on at least 40 mg daily steroids for the next at least 4-6 weeks and we will reevaluate with imaging. Patient verbalized understanding according to oncology no more chemotherapy because of the toxicity. Patient will proceed for surgery for her breast cancer. 01/09 reevaluated patient patient is on room air as mentioned about patient should be on prednisone 40 mg daily till she sees me in the lung clinic in 4 weeks at that point I will repeat the CT chest without contrast and start tapering steroids. I personally discussed the assessment and plan all questions were answered the patient and her . I personally communicated with the hospitalist and the nurse taking care of him to do a walking pulse oximetry before discharge. (3) Pulmonary embolism Current Visit: Yes Status: Acute To continue oral anticoagulation on discharge. Qualifiers: Pulmonary embolism type: other Chronicity: acute Acute cor pulmonale presence: without acute cor pulmonale Qualified Code(s): I26.99 - Other pulmonary embolism without acute cor pulmonale (4) Acute diastolic CHF (congestive heart failure), NYHA class 3 Current Visit: Yes Status: Acute To continue diuresis according to primary team (5) Breast cancer Current Visit: Yes Status: Acute Patientis breast cancer with neoadjuvant chemotherapy had side effects oncology recommended to proceed with surgery as the tumor is small. Qualifiers: Breast location: unspecified site of breast Estrogen receptor status: unspecified Patient sex: female Laterality: unspecified laterality Qualified Code(s): C50.919 - Malignant neoplasm of unspecified site of unspecified female breast Subjective Principal diagnosis: A-Fib RVR, sepsis, pneumonitis Interval history: Patient did not have any acute events overnight . Patient is back on room air patient denies any symptoms denies any chest pain chest tightness denies much cough or sputum production. Objective PUL Vital signs: Last Vital Signs Temp 97.7 F 01/09/19 07:21 Pulse 100 01/09/19 07:27 Resp 20 01/09/19 07:21 BP 108/68 01/09/19 07:21 Pulse Ox 92 01/09/19 07:21 General appearance: no acute distress Eyes: nonicteric ENT: oropharynx moist Auscultation: bilateral: diminished breath sounds (In the bases) Cardiovascular: irregular rhythm Gastrointestinal: normoactive bowel sounds Extremities: no cyanosis, no edema Musculoskeletal: no deformities normal mental status, non-focal exam, pupils equal and round, CN II-XII normal Results - Laboratory Findings CBC and BMP: 01/09/19 01:52 01/09/19 01:52 PT/INR, D-dimer PT 13.2 Seconds (9.4-12.1) H 12/30/18 03:35 Abnormal lab findings: Abnormal lab results WBC 24.2 K/mcL (4.3-11.1) H 01/09/19 01:52 RBC 2.80 M/mcL (3.82-4.97) L 01/09/19 01:52 Hgb 8.6 g/dL (11.5-15.4) L 01/09/19 01:52 Hct 26.9 % (35.3-44.9) L 01/09/19 01:52 RDW 15.5 % (11.5-14.5) H 01/09/19 01:52 Plt Count 424 K/mcL (140-400) H 01/08/19 08:37 MPV 9.3 fL (9.4-12.4) L 01/07/19 06:20 Immature Gran % 4.5 % (0-4) H 01/09/19 01:52 Neutrophils # 19.7 K/mcL (1.6-8.9) H 01/09/19 01:52 Monocytes # 1.5 K/mcL (0.0-1.3) H 01/08/19 08:37 Nucleated RBCs/100 WBC 0.2 /100 WBC (0) H 01/09/19 01:52 Hypochromasia Present (Not Present) A 01/08/19 08:37 Anisocytosis 1+ (Not Present) A 01/08/19 08:37 Percent Retic 3.3 % (1.6-2.8) H 01/06/19 16:41 Retic Hgb Equivalent 28.0 pg (28.61-36.33) L 01/06/19 16:41 PT 13.2 Seconds (9.4-12.1) H 12/30/18 03:35 Heparin Anti-Xa, Unfract 0.28 IU/mL (0.30-0.70) L 01/02/19 18:50 Sodium 134 mEq/L (136-145) L 01/09/19 01:52 Potassium 3.2 mEq/L (3.5-5.1) L 01/05/19 05:34 Chloride 108 mEq/L (98-107) H 01/03/19 02:06 Carbon Dioxide 21 mEq/L (23-29) L 01/09/19 01:52 BUN 47 mg/dL (8-23) H 01/09/19 01:52 Creatinine 1.40 mg/dL (0.60-1.20) H 01/09/19 01:52 Est GFR ( Amer) 45 (> 60) L 01/09/19 01:52 Est GFR (Non-Af Amer) 37 (> 60) L 01/09/19 01:52 BUN/Creatinine Ratio 34 (6-26) H 01/09/19 01:52 Glucose 116 mg/dL (70-105) H 01/09/19 01:52 Lactic Acid 3.0 mmol/L (0.5-2.2) H 12/29/18 17:03 Uric Acid 8.0 mg/dL (2.3-7.6) H 12/29/18 17:03 Calcium 8.1 mg/dL (8.6-10.3) L 12/30/18 03:35 Iron 12 mcg/dL (50-170) L 01/03/19 02:06 % Saturation 8 % (15-50) L 01/03/19 02:06 Transferrin 105 mg/dL (203-362) L 01/03/19 02:06 Ferritin 728 ng/mL (10-120) H 01/04/19 06:03 Troponin I 0.15 ng/mL (< 0.04) H* 12/30/18 09:13 B-Natriuretic Peptide 843 pg/mL (Less than 100) H 01/05/19 13:15 Globulin 3.7 g/dL (2.4-3.5) H 12/29/18 17:03 Albumin/Globulin Ratio 1.0 (1.1-2.2) L 12/29/18 17:03 Folate 17.2 ng/mL (3.0-16.0) H 01/06/19 11:49 Procalcitonin 0.45 ng/mL (0.00-0.15) H 01/05/19 13:15 Urine Protein 100 mg/dL (Neg-Trace) H 12/29/18 18:15 Urine Ketones 15 mg/dL (Negative) H 12/29/18 18:15 Urine Blood Trace-intact (Negative) H 12/29/18 18:15 Ur Leukocyte Esterase Trace (Negative) H 12/29/18 18:15 Urine Microscopic RBC 3-5 per hpf (0-3) H 12/29/18 18:15 Urine Microscopic WBC 15-30 per hpf (0-3) H 12/29/18 18:15 Ur Squamous Epith Cells Many per lpf (None-Few) H 12/29/18 18:15 Ur Culture Indicated? YES (NO) A 12/29/18 18:15 Vancomycin Trough 12 mcg/mL (5-10) H 01/05/19 19:24 Mycoplasma pneumon IgG 0.10 U/L (<=0.09) H 01/05/19 14:28 - Clinical Findings Intake & Output: Intake & Output 01/08/19 01/09/19 01/09/19 23:59 07:59 15:59 Intake Total 640 / 1300 100 / 100 Output Total 500 / 1600 600 / 600 Balance 140 / -300 -500 / -500 Consult Discharge Plan - Plan Instructions: Metoprolol (By mouth), Diltiazem (By mouth), Digoxin (By mouth), Furosemide (By mouth), Doxycycline (By mouth), Prednisone (By mouth), Aspirin (By mouth), Losartan (By mouth), Apixaban (By mouth), Pulmonary Embolism (DC) Additional Instructions: Follow-up appointments: If there is not an appointment listed below, please call your physician and schedule a follow-up appointment. If you have congestive heart failure and your symptoms return, make an appointment with your physician. Medication List: Carry an up to date list of medications you are taking at all time. We have given you an updated medication list including any new medications that you have been prescribed. Please provide that list to your primary provider Symptoms: If your condition changes or you experience any of the following symptoms, notify your physician immediately: Unusual or worsening pain, fever, persistent nausea and vomiting, bleeding, increase in swelling (especially in your legs), sudden weight gain, extreme dizziness, chest pain, increased drainage or redness from a wound or incision. Go to the emergency department if you experience a problem with breathing. Referrals: Israel Green Jr, MD [Primary Care Provider] - 01/17/19 3:00 pm Caden Curran MD [Partnered Physician] - (made web request, office to call patient at home with appointment date and time.) Prescriptions: Aspirin 81 mg PO DAILY #60 tab.chew Diltiazem CD (24hr) [Cardizem CD] 360 mg PO DAILY #60 cap.er.24h Losartan [Cozaar] 25 mg PO DAILY #60 tablet Doxycycline 100 mg PO BID 7 Days #14 capsule Apixaban [Eliquis] 5 mg PO BID #60 tablet Apixaban [Eliquis] 10 mg PO BID 1 Days #1 tablet Digoxin [Lanoxin] 0.0625 mg PO DAILY #60 tablet Furosemide [Lasix] 20 mg PO DAILY 30 Days #30 tablet Metoprolol [Lopressor] 100 mg PO BID #60 tablet predniSONE [PredniSONE] 40 mg PO DAILY 30 Days #60 tablet
--- NOTE | 2019-01-09 10:06 | Discharge Summary ---
Orders not resulted at time of discharge: Pending orders 01/06/19 16:41 BCR-ABL1t(9;22)Diag,Rflx Quant Routine PML-LAURITA Trans, t(15;17)PCR Routine Peripheral Bld Flow Routine Date of Encounter: 01/09/19 Time of Encounter: 09:00 - Discharge Diagnosis (1) Acute respiratory failure with hypoxia Priority: Primary Status: Acute Assessment and Plan: 68 year old female patient presented to the emergency department with weakness and hypotension. She has a significant past medical history of breast cancer, currently undergoing chemotherapy. She had gone to her chemotherapy appointment 2 days ago, was found to have a temperature of 102 and a low blood pressure. Rather than receive her chemotherapy she was given IV fluids and her appointment was rescheduled. She continued to not feel well, had increased weakness and therefore came to the hospital for further evaluation. She was assessed with multiple acute medical problems. She had a acute hypoxic respiratoyr failure in the setting of new onset PE, pneumonitis from chemotherapy, pneumonia, acute worsening of chronic diastolic CHF and new onset afib with RVR. She was started on antibiotics and high flow oxygen via nasal cannula. She was aslo started on blood thinners for her PE and cardizem drip for atrial fibrillation with RVR. She was weaned of IV meds to po meds for afib and PE. She was also diuresed with lasix for diastolic CHF. She was seen by pulmonary for persistent hypoxic repsiratory failure likely 2/2 to pneumonitis from cyclophosphamide chemotherapy and started on steroids. She improved and was able to be weaned off oxygen to room air at rest. She will be discharged on a 4 week course of steroids per pulkody recyane and 7 days of doxycycline for atypical pneumonia coverage. 35 minutes was spent discharging this patient (2) Pneumonitis Priority: Primary Status: Acute (3) Atrial fibrillation Priority: Primary Status: Acute Qualifiers: Atrial fibrillation type: unspecified Qualified Code(s): I48.91 - Unspecified atrial fibrillation (4) Hypokalemia Priority: Primary Status: Resolved (5) Pulmonary embolism Priority: Primary Status: Acute Qualifiers: Pulmonary embolism type: other Chronicity: acute Acute cor pulmonale presence: without acute cor pulmonale Qualified Code(s): I26.99 - Other pulmonary embolism without acute cor pulmonale (6) Anemia Priority: Primary Status: Acute Qualifiers: Anemia type: other cause Other causes of anemia: chronic disease, neoplastic Qualified Code(s): D63.0 - Anemia in neoplastic disease (7) Breast cancer Priority: Primary Status: Acute Qualifiers: Breast location: unspecified site of breast Estrogen receptor status: unspecified Patient sex: female Laterality: unspecified laterality Qualified Code(s): C50.919 - Malignant neoplasm of unspecified site of unspecified female breast (8) Acute diastolic CHF (congestive heart failure), NYHA class 3 Priority: Primary Status: Acute (9) DVT prophylaxis Priority: Primary Status: Acute Hospital course: Ms. Umanzor is a 68 year old female - Time Spent with Patient Total time spent providing and/or coordinating discharge services: - Discharge Medications Prescriptions: New Apixaban [Eliquis] 5 mg PO BID #60 tablet Apixaban [Eliquis] 10 mg PO BID 1 Days #1 tablet predniSONE [PredniSONE] 40 mg PO DAILY 30 Days #60 tablet Digoxin [Lanoxin] 0.0625 mg PO DAILY #60 tablet Diltiazem CD (24hr) [Cardizem CD] 360 mg PO DAILY #60 cap.er.24h Losartan [Cozaar] 25 mg PO DAILY #60 tablet Metoprolol [Lopressor] 100 mg PO BID #60 tablet Aspirin 81 mg PO DAILY #60 tab.chew Furosemide [Lasix] 20 mg PO DAILY 30 Days #30 tablet Doxycycline 100 mg PO BID 7 Days #14 capsule Continued Ca/D3/Mag#11/Zinc/Loin Trimmer/Ilia/Bor [Caltrate 600+D Plus Tablet] 2 tab PO QAM Multivit-Min/FA/Lycopen/Lutein [Centrum Silver Tablet] 1 tab PO DAILY Levothyroxine [Synthroid] 50 mcg PO QAM Lidocaine/Prilocaine [Emla] 1 appl TP AD #30 gm Dexamethasone [Decadron] 4 mg PO BID #36 tab Potassium Chloride [K-Tab ER] 10 meq PO DAILY #30 tablet.er Prochlorperazine Maleate [Compazine] 10 mg PO Q8HR PRN PRN Reason: NAUSEA/VOMITING Acetaminophen [Tylenol] 500 mg PO DAILY PRN PRN Reason: Pain Discontinued Olmesartan/Hydrochlorothiazide [Benicar Hct 20-12.5 mg Tablet] 1 tab PO DAILY Home Medications: Ca/D3/Mag#11/Zinc/Loin Trimmer/Ilia/Bor [Caltrate 600+D Plus Tablet] 2 tab PO QAM 07/09/16 [History] Multivit-Min/FA/Lycopen/Lutein [Centrum Silver Tablet] 1 tab PO DAILY 07/09/16 [History] Levothyroxine [Synthroid] 50 mcg PO QAM 08/16/18 [History] Lidocaine/Prilocaine [Emla] 1 appl TP AD #30 gm 08/25/18 [Rx] Dexamethasone [Decadron] 4 mg PO BID #36 tab 08/27/18 [Rx] Potassium Chloride [K-Tab ER] 10 meq PO DAILY #30 tablet.er 11/15/18 [Rx] Acetaminophen [Tylenol] 500 mg PO DAILY PRN 12/30/18 [History] Prochlorperazine Maleate [Compazine] 10 mg PO Q8HR PRN 12/30/18 [History] Apixaban [Eliquis] 5 mg PO BID #60 tablet 01/09/19 [Rx] Apixaban [Eliquis] 10 mg PO BID 1 Days #1 tablet 01/09/19 [Rx] Aspirin 81 mg PO DAILY #60 tab.chew 01/09/19 [Rx] Digoxin [Lanoxin] 0.0625 mg PO DAILY #60 tablet 01/09/19 [Rx] Diltiazem CD (24hr) [Cardizem CD] 360 mg PO DAILY #60 cap.er.24h 01/09/19 [Rx] Doxycycline 100 mg PO BID 7 Days #14 capsule 01/09/19 [Rx] Furosemide [Lasix] 20 mg PO DAILY 30 Days #30 tablet 01/09/19 [Rx] Losartan [Cozaar] 25 mg PO DAILY #60 tablet 01/09/19 [Rx] Metoprolol [Lopressor] 100 mg PO BID #60 tablet 01/09/19 [Rx] predniSONE [PredniSONE] 40 mg PO DAILY 30 Days #60 tablet 01/09/19 [Rx] Allergies/Adverse Reactions: Allergy/AdvReac Type Severity Reaction Status Date / Time adhesive tape Allergy Rash, itch Verified 12/30/18 18:41 Date of admission: 12/29/18 21:57 Primary care physician: Israel Green Jr, MD Consults: 12/30/18 04:16 Consult to Cardiology [CONS] Routine Comment: Consulting Provider: [facility] Reason for Consult: Elevated troponin, new onset atrial fibrillation Call Completed: No 01/05/19 09:43 Consult to Pulmonology [CONS] Routine Consulting Provider: [facility] Reason for Consult: persistent hypoxic resp failure, new PE, breast cancer Call Completed: No 01/06/19 10:06 Consult to Oncology [CONS] Routine Consulting Provider: [facility] Reason for Consult: breast cancer on chemotherapy Call Completed: No - Constitutional Vitals: Temp Pulse Resp BP Pulse Ox 97.7 F 100 20 108/68 92 01/09/19 07:21 01/09/19 07:27 01/09/19 07:21 01/09/19 07:21 01/09/19 07:21 General appearance: Present: cooperative, A&O X 3, pleasant, no acute distress, answers questions appropriately Exam: GENERAL: Mild respiratory distress. Alert and Oriented HEENT: EOMI, PERRLA MOUTH: Moist oral mucosA NECK:No JVD, No lymph nodes. CHEST AND LUNGS: Few crackles at lung bases. No wheezing HEART: S1 and S2 normal, irregular, no murmurs ABDOMEN: Soft, nontender, no organomegaly SKIN: Normal color, no rahses, no lesions EXTREMITIES: No deformity, no edema, no tenderness, no joint swelling or clubbing NEUROLOGICAL: Normal cognition, normal motor and sensory exam. - Patient Status Disposition: Home, Self-Care Condition: Good - Ambulatory Orders Ambulatory Orders: Renal Function Panel [CHEM] Time Frame: 5 Days, Facility: [facility], Location: [facility] - Discharge Instructions Instructions: Metoprolol (By mouth), Diltiazem (By mouth), Digoxin (By mouth), Furosemide (By mouth), Doxycycline (By mouth), Prednisone (By mouth), Aspirin (By mouth), Losartan (By mouth), Apixaban (By mouth), Pulmonary Embolism (DC) Follow Up With: Israel Green Jr, MD [Primary Care Provider] - 01/17/19 3:00 pm Caden Curran MD [Partnered Physician] - (made web request, office to call patient at home with appointment date and time.) Additional Instructions: Follow-up appointments: If there is not an appointment listed below, please call your physician and schedule a follow-up appointment. If you have congestive heart failure and your symptoms return, make an appointment with your physician. Medication List: Carry an up to date list of medications you are taking at all time. We have given you an updated medication list including any new medications that you have been prescribed. Please provide that list to your primary provider Symptoms: If your condition changes or you experience any of the following symptoms, notify your physician immediately: Unusual or worsening pain, fever, persistent nausea and vomiting, bleeding, increase in swelling (especially in your legs), sudden weight gain, extreme dizziness, chest pain, increased drainage or redness from a wound or incision. Go to the emergency department if you experience a problem with breathing.
[2019-01-09 11:26] VITALS: BP 100/54
[2019-01-09 20:50] LABS: Alpha 2 Globulin (PEP) 1.44 g/dL (0.48-1.05); Beta Globulin (PEP) 0.91 g/dL (0.48-1.10)
[2019-01-10] MEDS ORDERED: Apixaban 5 MG TABLET PO SCH (09:00)
[2019-01-10 10:34] LABS: IFE Reflexed NOT DONE
[2019-01-10 19:05] LABS: BCR-ABL1 Specimen Source NOT SPECIFIED
== END 2019-01-09 13:50 | disposition home or self-care (01) | DRG 871 ==
LOC: EMEROOARM 16:52 → SUATTDRO 21:57 → 2NENU 21:57 → 2NNU 12-30 13:47
PROVIDERS: ADMIT Family Medicine; ATTEND Internal Medicine

== ENCOUNTER 2019-04-15 09:39 | Inpatient (IN) ==
[2019-04-15] MEDS ORDERED: Isovue-370 500 ML BOTTLE IVP ONE (09:54)
[2019-04-15] MEDS ORDERED: 0.9 % Sodium Chloride 500 ML IVC ONE (09:55)
[2019-04-15 10:48] LABS: Basophils # 0.1 K/mcL (0.0-0.2); Basophils % 1.3 %; Eosinophils # 0.1 K/mcL (0.0-0.6); Eosinophils % 0.8 %; Hematocrit 43.4 % (35.3-44.9); Hemoglobin 13.4 g/dL (11.5-15.4); Immature Granulocytes % 0.2 % (0-4); Lymphocytes % 24.5 %; Mean Corpuscular HGB Conc 30.9 g/dL (31.6-35.5); Mean Corpuscular Volume 100.5 fL (83.0-100.0); Mean Platelet Volume 9.9 fL (9.4-12.4); Monocytes # 0.7 K/mcL (0.0-1.3); Monocytes % 8.6 %; Neutrophils # 5.4 K/mcL (1.6-8.9); Platelet Count 254 K/mcL (140-400); Red Blood Count 4.32 M/mcL (3.82-4.97); Red Cell Distribution Width 14.2 % (11.5-14.5); Segmented Neutrophils % 64.6 %; White Blood Count 8.3 K/mcL (4.3-11.1)
[2019-04-15 11:16] LABS: Alanine Aminotransferase 17 Units/L (7-52); Albumin 3.6 g/dL (3.5-5.7); Albumin/Globulin Ratio 1.6 (1.1-2.2); Alkaline Phosphatase 54 Units/L (34-104); Aspartate Amino Transferase 22 Units/L (13-39); BUN/Creatinine Ratio 14 (6-26); Bilirubin,Direct 0.1 mg/dL (0.0-0.2); Bilirubin,Indirect 0.6 mg/dL (0.0-1.0); Bilirubin,Total 0.7 mg/dL (0.3-1.0); Blood Urea Nitrogen 16 mg/dL (8-23); Calcium 9.4 mg/dL (8.6-10.3); Carbon Dioxide 21 mEq/L (23-29); Chloride 107 mEq/L (98-107); Globulin 2.3 g/dL (2.4-3.5); Glucose 120 mg/dL (70-105); Osmolality,Calculated 298 (280-300); Potassium 3.4 mEq/L (3.5-5.1); Sodium 143 mEq/L (136-145); Total Protein 5.9 g/dL (6.4-8.9); eGFR For African Americans 55 (> 60); eGFR For Non-African Americans 46 (> 60)
[2019-04-15 11:17] LABS: Troponin I < 0.03 ng/mL (< 0.04)
[2019-04-15] MEDS ORDERED: Furosemide 40 MG/4 ML VIAL IVP ONE (12:27)
[2019-04-15] MEDS ORDERED: Naloxone 0.4 MG/ML INJ IVP PRN (14:29)
[2019-04-15] MEDS ORDERED: Ondansetron ODT 4 MG TAB.RAPDIS PO PRN (14:53)
[2019-04-15] MEDS ORDERED: *HR* Heparin 5,000 UNIT/ML VIAL IVP ONE (15:34)
[2019-04-15] MEDS ORDERED: *HR* Heparin 5,000 UNIT/ML VIAL IVP PRN ×4 (15:34→18:03)
[2019-04-15] MEDS ORDERED: Heparin 25,000 UNIT/250 ML D5W 25,000 UNIT/250 ML IV.SOLN IVC SCH (15:45)
[2019-04-15 17:39] LABS: INR 1.4; Prothrombin Time 15.7 Seconds (9.4-12.1)
[2019-04-15 17:52] LABS: Heparin anti-factor XA UFH 1.49 IU/mL (0.30-0.70)
[2019-04-15 18:01] LABS: Magnesium 1.9 mg/dL (1.6-2.6)
[2019-04-15 18:02] LABS: Troponin I < 0.03 ng/mL (< 0.04)
[2019-04-15 18:09] LABS: Activated Partial Thrombo Time 35.6 Seconds (26.0-36.0)
[2019-04-15] MEDS: Heparin 25,000 UNIT/250 ML D5W 25,000 UNIT/250 ML IV.SOLN IVC SCH (20:14)
[2019-04-15] MEDS ORDERED: Apixaban 5 MG TABLET PO SCH (21:00)
[2019-04-16 03:23] LABS: Basophils # 0.1 K/mcL (0.0-0.2); Eosinophils # 0.2 K/mcL (0.0-0.6); Eosinophils % 1.9 %; Hematocrit 42.2 % (35.3-44.9); Hemoglobin 13.7 g/dL (11.5-15.4); Immature Granulocytes % 0.2 % (0-4); Lymphocytes # 2.3 K/mcL (0.6-4.6); Lymphocytes % 25.1 %; Mean Corpuscular HGB Conc 32.5 g/dL (31.6-35.5); Mean Corpuscular Hemoglobin 31.6 pg (28.0-33.3); Mean Corpuscular Volume 97.5 fL (83.0-100.0); Mean Platelet Volume 9.6 fL (9.4-12.4); Monocytes # 0.9 K/mcL (0.0-1.3); Monocytes % 10.1 %; Neutrophils # 5.6 K/mcL (1.6-8.9); Platelet Count 243 K/mcL (140-400); Red Blood Count 4.33 M/mcL (3.82-4.97); Red Cell Distribution Width 14.3 % (11.5-14.5); Segmented Neutrophils % 61.7 %; White Blood Count 9.1 K/mcL (4.3-11.1)
[2019-04-16 03:37] LABS: BUN/Creatinine Ratio 16 (6-26); Blood Urea Nitrogen 17 mg/dL (8-23); Calcium 9.1 mg/dL (8.6-10.3); Carbon Dioxide 26 mEq/L (23-29); Chloride 107 mEq/L (98-107); Glucose 104 mg/dL (70-105); Magnesium 1.9 mg/dL (1.6-2.6); Osmolality,Calculated 298 (280-300); Potassium 4.5 mEq/L (3.5-5.1); Sodium 143 mEq/L (136-145); eGFR For African Americans > 60 (> 60); eGFR For Non-African Americans 53 (> 60)
[2019-04-16] MEDS: Cholecalciferol (D-3) 1,000 UNIT (25MCG) TABLET PO SCH (08:33)
[2019-04-16] MEDS: Multivit/Ca/Min/Fe/FA 1 TAB TABLET PO SCH (08:33)
[2019-04-16] MEDS: Diltiazem CD (24hr) 180 MG CAPSULE PO SCH (10:11)
[2019-04-16] MEDS: Furosemide 40 MG/4 ML VIAL IVP SCH (15:35)
[2019-04-16] MEDS: Heparin 25,000 UNIT/250 ML D5W 25,000 UNIT/250 ML IV.SOLN IVC SCH (17:32)
[2019-04-17 06:05] LABS: Hematocrit 40.8 % (35.3-44.9); Mean Corpuscular HGB Conc 31.9 g/dL (31.6-35.5); Mean Corpuscular Hemoglobin 31.8 pg (28.0-33.3); Mean Corpuscular Volume 99.8 fL (83.0-100.0); Mean Platelet Volume 9.7 fL (9.4-12.4); Platelet Count 230 K/mcL (140-400); Red Blood Count 4.09 M/mcL (3.82-4.97); Red Cell Distribution Width 14.3 % (11.5-14.5); White Blood Count 9.1 K/mcL (4.3-11.1)
[2019-04-17 06:22] LABS: BUN/Creatinine Ratio 23 (6-26); Blood Urea Nitrogen 21 mg/dL (8-23); Calcium 9.2 mg/dL (8.6-10.3); Carbon Dioxide 25 mEq/L (23-29); Chloride 105 mEq/L (98-107); Glucose 105 mg/dL (70-105); Osmolality,Calculated 297 (280-300); Potassium 3.9 mEq/L (3.5-5.1); Sodium 142 mEq/L (136-145); eGFR For African Americans > 60 (> 60); eGFR For Non-African Americans 60 (> 60)
[2019-04-17] MEDS: Diltiazem CD (24hr) 180 MG CAPSULE PO SCH (08:14)
[2019-04-17] MEDS: Furosemide 40 MG/4 ML VIAL IVP SCH ×2 (08:14→16:47)
[2019-04-17] MEDS: Cholecalciferol (D-3) 1,000 UNIT (25MCG) TABLET PO SCH (08:14)
[2019-04-17] MEDS: Multivit/Ca/Min/Fe/FA 1 TAB TABLET PO SCH (08:14)
[2019-04-17] MEDS: Heparin 25,000 UNIT/250 ML D5W 25,000 UNIT/250 ML IV.SOLN IVC SCH (16:46)
[2019-04-18 03:11] LABS: Hematocrit 36.2 % (35.3-44.9); Mean Corpuscular HGB Conc 31.5 g/dL (31.6-35.5); Mean Corpuscular Hemoglobin 31.3 pg (28.0-33.3); Mean Corpuscular Volume 99.5 fL (83.0-100.0); Mean Platelet Volume 10.1 fL (9.4-12.4); Platelet Count 204 K/mcL (140-400); Red Blood Count 3.64 M/mcL (3.82-4.97); Red Cell Distribution Width 14.2 % (11.5-14.5); White Blood Count 7.6 K/mcL (4.3-11.1)
[2019-04-18 03:27] LABS: BUN/Creatinine Ratio 26 (6-26); Blood Urea Nitrogen 23 mg/dL (8-23); Calcium 8.8 mg/dL (8.6-10.3); Chloride 104 mEq/L (98-107); Glucose 103 mg/dL (70-105); Hemoglobin 11.4 g/dL (11.5-15.4); Osmolality,Calculated 294 (280-300); Potassium 3.7 mEq/L (3.5-5.1); Sodium 140 mEq/L (136-145); eGFR For African Americans > 60 (> 60); eGFR For Non-African Americans > 60 (> 60)
[2019-04-18 03:32] LABS: Carbon Dioxide 27 mEq/L (23-29)
[2019-04-18] MEDS: Diltiazem CD (24hr) 180 MG CAPSULE PO SCH (07:51)
[2019-04-18] MEDS: Furosemide 40 MG/4 ML VIAL IVP SCH ×2 (07:51→16:44)
[2019-04-18] MEDS: Multivit/Ca/Min/Fe/FA 1 TAB TABLET PO SCH (07:51)
[2019-04-18] MEDS: Cholecalciferol (D-3) 1,000 UNIT (25MCG) TABLET PO SCH (07:51)
[2019-04-18] MEDS: Heparin 25,000 UNIT/250 ML D5W 25,000 UNIT/250 ML IV.SOLN IVC SCH (09:00)
[2019-04-18 17:11] LABS: Albumin 3.5 g/dL (3.5-5.7); Albumin/Globulin Ratio 1.5 (1.1-2.2); Globulin 2.3 g/dL (2.4-3.5); Total Protein 5.8 g/dL (6.4-8.9)
[2019-04-18] MEDS ORDERED: Benzonatate 100 MG CAPSULE PO PRN (19:06)
[2019-04-18 19:09] LABS: RBC,Pleural Fluid < 0.002 M/mcL
[2019-04-18 19:10] LABS: Appearance of Pleural Fl Clear (Clear)
[2019-04-18 19:38] LABS: Amylase,Pleural Fluid < 10 Units/L (No Ref Range); Glucose,Pleural Fluid 121 mg/dL (No Ref Range); LDH,Pleural Fluid 39 Units/L (No Ref Range); Total Protein,Pleural Fluid < 3.0 g/dL
[2019-04-18 19:41] LABS: Basophils,Pleural Fluid 0 %; Eosinophils,Pleural Fluid 0 %; Monocytes,Pleural Fluid 0 %
[2019-04-19 01:24] LABS: Basophils # 0.1 K/mcL (0.0-0.2); Basophils % 0.7 %; Eosinophils # 0.2 K/mcL (0.0-0.6); Eosinophils % 1.7 %; Hematocrit 38.8 % (35.3-44.9); Hemoglobin 12.4 g/dL (11.5-15.4); Immature Granulocytes % 0.2 % (0-4); Lymphocytes # 2.2 K/mcL (0.6-4.6); Lymphocytes % 21.7 %; Mean Corpuscular Hemoglobin 31.5 pg (28.0-33.3); Mean Corpuscular Volume 98.5 fL (83.0-100.0); Mean Platelet Volume 9.8 fL (9.4-12.4); Monocytes # 0.8 K/mcL (0.0-1.3); Platelet Count 232 K/mcL (140-400); Red Blood Count 3.94 M/mcL (3.82-4.97); Red Cell Distribution Width 14.1 % (11.5-14.5); Segmented Neutrophils % 67.7 %; White Blood Count 10.3 K/mcL (4.3-11.1)
[2019-04-19 01:40] LABS: BUN/Creatinine Ratio 26 (6-26); Blood Urea Nitrogen 23 mg/dL (8-23); Calcium 9.1 mg/dL (8.6-10.3); Carbon Dioxide 24 mEq/L (23-29); Chloride 104 mEq/L (98-107); Glucose 112 mg/dL (70-105); Osmolality,Calculated 292 (280-300); Potassium 3.8 mEq/L (3.5-5.1); Sodium 139 mEq/L (136-145); eGFR For African Americans > 60 (> 60); eGFR For Non-African Americans > 60 (> 60)
[2019-04-19] MEDS ORDERED: Menthol 9.1 MG LOZENGE PO PRN (08:03)
[2019-04-19] MEDS: Multivit/Ca/Min/Fe/FA 1 TAB TABLET PO SCH (08:33)
[2019-04-19] MEDS: Cholecalciferol (D-3) 1,000 UNIT (25MCG) TABLET PO SCH (08:33)
[2019-04-19] MEDS: Furosemide 40 MG/4 ML VIAL IVP SCH (08:34)
[2019-04-19] MEDS: Diltiazem CD (24hr) 180 MG CAPSULE PO SCH (08:34)
[2019-04-19] MEDS ORDERED: Apixaban 5 MG TABLET PO SCH (09:00)
[2019-04-19 11:40] VITALS: BP 90/63
== END 2019-04-19 17:15 | disposition home or self-care (01) | DRG 291 ==
LOC: EMEROOARM 09:39 → 2NENU 09:39 → SUATTDRO 18:42
PROVIDERS: ADMIT Family Medicine; ATTEND Internal Medicine

== ENCOUNTER 2019-05-09 14:14 | Inpatient (IN) ==
[2019-05-09] MEDS ORDERED: 0.9 % Sodium Chloride 1,000 ML IVC ONE ×2 (14:58→17:09)
[2019-05-09 15:12] LABS: Basophils # 0.1 K/mcL (0.0-0.2); Basophils % 0.4 %; Hematocrit 42.3 % (35.3-44.9); Hemoglobin 14.1 g/dL (11.5-15.4); Immature Granulocytes % 0.6 % (0-4); Lymphocytes # 0.7 K/mcL (0.6-4.6); Lymphocytes % 4.2 %; Mean Corpuscular HGB Conc 33.3 g/dL (31.6-35.5); Monocytes # 1.1 K/mcL (0.0-1.3); Monocytes % 6.8 %; Neutrophils # 14.3 K/mcL (1.6-8.9); Platelet Count 311 K/mcL (140-400); Red Cell Distribution Width 14.6 % (11.5-14.5); White Blood Count 16.3 K/mcL (4.3-11.1)
[2019-05-09] MEDS ORDERED: Isovue-370 500 ML BOTTLE IVP ONE (15:29)
[2019-05-09 15:37] LABS: BUN/Creatinine Ratio 20 (6-26); Blood Urea Nitrogen 18 mg/dL (8-23); Calcium 9.4 mg/dL (8.6-10.3); Carbon Dioxide 23 mEq/L (23-29); Chloride 104 mEq/L (98-107); Glucose 160 mg/dL (70-105); Magnesium 1.6 mg/dL (1.6-2.6); Osmolality,Calculated 301 (280-300); Sodium 143 mEq/L (136-145); Troponin I 0.03 ng/mL (< 0.04); eGFR For African Americans > 60 (> 60); eGFR For Non-African Americans > 60 (> 60)
[2019-05-09 15:47] LABS: Thyroid Stimulating Hormone 4.075 mcIU/mL (0.340-5.600)
[2019-05-09] MEDS ORDERED: Potassium Chloride Elixir 20 MEQ/15 ML UDC PO ONE (16:03)
[2019-05-09] MEDS ORDERED: Azithromycin 500 MG in 0.9 % Sodium Chloride 250 ML IVPB ONE (17:10)
[2019-05-09] MEDS ORDERED: cefTRIAXone 1,000 MG in Water for inj. (sterile) 10 ML IVP ONE (17:10)
[2019-05-09] MEDS ORDERED: Furosemide 40 MG/4 ML VIAL IVP ONE (17:14)
[2019-05-09] MEDS ORDERED: Naloxone 0.4 MG/ML INJ IVP PRN (17:51)
[2019-05-09] MEDS ORDERED: Acetaminophen 325 MG TABLET PO PRN (18:33)
[2019-05-09] MEDS ORDERED: *HR* HYDROcodone/Acet 5/325 mg TABLET PO PRN (18:33)
[2019-05-09] MEDS: Apixaban 5 MG TABLET PO SCH (21:06)
[2019-05-10] MEDS ORDERED: Potassium Chloride Elixir 20 MEQ/15 ML UDC PO ONE (00:01)
[2019-05-10 04:10] LABS: Basophils # 0.1 K/mcL (0.0-0.2); Basophils % 0.4 %; Eosinophils # 0.1 K/mcL (0.0-0.6); Eosinophils % 0.4 %; Hematocrit 37.9 % (35.3-44.9); Hemoglobin 12.6 g/dL (11.5-15.4); Immature Granulocytes % 0.5 % (0-4); Lymphocytes # 1.4 K/mcL (0.6-4.6); Mean Corpuscular HGB Conc 33.2 g/dL (31.6-35.5); Mean Corpuscular Hemoglobin 30.2 pg (28.0-33.3); Mean Corpuscular Volume 90.9 fL (83.0-100.0); Mean Platelet Volume 9.7 fL (9.4-12.4); Monocytes # 1.4 K/mcL (0.0-1.3); Monocytes % 7.7 %; Platelet Count 232 K/mcL (140-400); Red Blood Count 4.17 M/mcL (3.82-4.97); Red Cell Distribution Width 14.6 % (11.5-14.5); White Blood Count 18.1 K/mcL (4.3-11.1)
[2019-05-10 04:30] LABS: BUN/Creatinine Ratio 20 (6-26); Blood Urea Nitrogen 16 mg/dL (8-23); Calcium 8.8 mg/dL (8.6-10.3); Carbon Dioxide 27 mEq/L (23-29); Chloride 105 mEq/L (98-107); Glucose 111 mg/dL (70-105); Osmolality,Calculated 298 (280-300); Potassium 3.6 mEq/L (3.5-5.1); Sodium 143 mEq/L (136-145); eGFR For African Americans > 60 (> 60); eGFR For Non-African Americans > 60 (> 60)
[2019-05-10] MEDS: Diltiazem CD (24hr) 180 MG CAPSULE PO SCH (08:52)
[2019-05-10] MEDS: Apixaban 5 MG TABLET PO SCH ×2 (08:52→20:00)
[2019-05-10] MEDS: Furosemide 40 MG/4 ML VIAL IVP SCH (08:52)
[2019-05-11 03:37] LABS: Basophils # 0.1 K/mcL (0.0-0.2); Basophils % 0.4 %; Eosinophils # 0.4 K/mcL (0.0-0.6); Eosinophils % 2.6 %; Hematocrit 35.3 % (35.3-44.9); Hemoglobin 11.8 g/dL (11.5-15.4); Immature Granulocytes % 0.4 % (0-4); Lymphocytes # 1.2 K/mcL (0.6-4.6); Lymphocytes % 8.8 %; Mean Corpuscular HGB Conc 33.4 g/dL (31.6-35.5); Mean Corpuscular Hemoglobin 30.5 pg (28.0-33.3); Mean Corpuscular Volume 91.2 fL (83.0-100.0); Mean Platelet Volume 9.7 fL (9.4-12.4); Monocytes # 1.1 K/mcL (0.0-1.3); Monocytes % 8.2 %; Neutrophils # 10.8 K/mcL (1.6-8.9); Platelet Count 224 K/mcL (140-400); Red Blood Count 3.87 M/mcL (3.82-4.97); Red Cell Distribution Width 14.6 % (11.5-14.5); Segmented Neutrophils % 79.6 %; White Blood Count 13.5 K/mcL (4.3-11.1)
[2019-05-11 03:56] LABS: BUN/Creatinine Ratio 26 (6-26); Blood Urea Nitrogen 21 mg/dL (8-23); Calcium 8.9 mg/dL (8.6-10.3); Carbon Dioxide 28 mEq/L (23-29); Chloride 101 mEq/L (98-107); Glucose 102 mg/dL (70-105); Osmolality,Calculated 293 (280-300); Potassium 3.2 mEq/L (3.5-5.1); Sodium 140 mEq/L (136-145); eGFR For African Americans > 60 (> 60); eGFR For Non-African Americans > 60 (> 60)
[2019-05-11] MEDS: Diltiazem CD (24hr) 180 MG CAPSULE PO SCH (09:22)
[2019-05-11] MEDS: Apixaban 5 MG TABLET PO SCH ×2 (09:23→19:57)
[2019-05-11] MEDS: Furosemide 40 MG/4 ML VIAL IVP SCH (09:23)
[2019-05-12 04:36] LABS: Hemoglobin 12.2 g/dL (11.5-15.4); Mean Corpuscular Hemoglobin 30.1 pg (28.0-33.3); Mean Corpuscular Volume 91.4 fL (83.0-100.0); Mean Platelet Volume 9.6 fL (9.4-12.4); Platelet Count 231 K/mcL (140-400); Red Blood Count 4.05 M/mcL (3.82-4.97); Red Cell Distribution Width 14.4 % (11.5-14.5); White Blood Count 9.9 K/mcL (4.3-11.1)
[2019-05-12 04:59] LABS: BUN/Creatinine Ratio 30 (6-26); Blood Urea Nitrogen 21 mg/dL (8-23); Carbon Dioxide 28 mEq/L (23-29); Chloride 105 mEq/L (98-107); Glucose 94 mg/dL (70-105); Osmolality,Calculated 287 (280-300); Potassium 3.5 mEq/L (3.5-5.1); Sodium 137 mEq/L (136-145); eGFR For African Americans > 60 (> 60); eGFR For Non-African Americans > 60 (> 60)
[2019-05-12] MEDS ORDERED: Furosemide 40 MG TABLET PO SCH (09:00)
[2019-05-12] MEDS: Diltiazem CD (24hr) 180 MG CAPSULE PO SCH (09:05)
[2019-05-12] MEDS: Apixaban 5 MG TABLET PO SCH (09:05)
[2019-05-12 11:31] VITALS: BP 102/65
== END 2019-05-12 14:57 | disposition home or self-care (01) | DRG 292 ==
LOC: 2ANU 14:14 → EMEROOARM 14:14 → 2ANU 17:50 → SUATTDRO 05-10 14:13
PROVIDERS: ADMIT Internal Medicine; ATTEND Internal Medicine

== ENCOUNTER 2021-06-25 10:25 | Inpatient (IN) ==
[2021-06-25] MEDS ORDERED: CeFAZolin Syr 2,000MG/20 ML 2,000 MG/20 ML SYRINGE IVPB ONE (10:57)
[2021-06-25] MEDS ORDERED: Ringers Solution, Lactated 1,000 ML IVC SCH (11:00)
[2021-06-25] MEDS ORDERED: *HR* OxyCODONE Immed Rel 5 MG TABLET PO PRN ×2 (11:19→17:41)
[2021-06-25] MEDS ORDERED: Ondansetron 4 MG/2 ML VIAL IVP PRN ×2 (11:19→17:41)
[2021-06-25] MEDS ORDERED: *HR* HYDROmorphone PF 0.5 MG/0.5 ML SYRINGE IVP PRN (11:19)
[2021-06-25] MEDS ORDERED: Promethazine 6.25 MG in Water for inj. (sterile) 20 ML IVPB PRN (11:19)
[2021-06-25] MEDS ORDERED: *HR* Propofol 200 MG/20 ML VIAL IVP ONE (11:44)
[2021-06-25] MEDS ORDERED: *HR* Rocuronium Bromide 50 MG/5 ML VIAL ONE ×2 (11:44→15:17)
[2021-06-25] MEDS ORDERED: *HR* FentaNYL (PF) 100 MCG/2 ML VIAL ONE ×2 (11:44→11:48)
[2021-06-25] MEDS ORDERED: Lidocaine -MPF 2% 5 ML VIAL ONE (11:44)
[2021-06-25] MEDS ORDERED: Ondansetron 4 MG/2 ML VIAL ONE (14:25)
[2021-06-25] MEDS ORDERED: Sugammadex Sodium 200 MG/2 ML VIAL IV ONE (15:17)
[2021-06-25] MEDS ORDERED: Scopolamine Patch 1.5 MG PATCH.TD72 TD ONE (16:53)
[2021-06-25] MEDS ORDERED: *HR* HYDROcodone/Acet 5/325 mg TABLET PO PRN (17:41)
[2021-06-25] MEDS ORDERED: Naloxone 0.4 MG/ML INJ IVP PRN (17:41)
[2021-06-25] MEDS ORDERED: *HR* Belladonna Alkaloids/Opium 30 MG RECTAL SUPPOSITORY RC PRN (17:41)
[2021-06-25] MEDS ORDERED: 0.9 % Sodium Chloride 1,000 ML IVC SCH (17:41)
[2021-06-25] MEDS: Acetaminophen IV 1,000 MG/100 ML BAG IVPB SCH (18:47)
[2021-06-25] MEDS: CeFAZolin 2 GM/120 ML BAG IVPB SCH (19:45)
[2021-06-26] MEDS: Acetaminophen IV 1,000 MG/100 ML BAG IVPB SCH (00:08)
[2021-06-26] MEDS: CeFAZolin 2 GM/120 ML BAG IVPB SCH (02:32)
[2021-06-26 06:08] LABS: Basophils % 0.1 %; Hematocrit 39.1 % (35.3-44.9); Immature Granulocytes % 0.4 % (0-4); Lymphocytes # 1.4 K/mcL (0.6-4.6); Lymphocytes % 10.7 %; Mean Corpuscular Hemoglobin 31.3 pg (28.0-33.3); Mean Platelet Volume 9.6 fL (9.4-12.4); Monocytes # 1.1 K/mcL (0.0-1.3); Monocytes % 8.2 %; Neutrophils # 10.6 K/mcL (1.6-8.9); Platelet Count 225 K/mcL (140-400); Red Blood Count 4.25 M/mcL (3.82-4.97); Red Cell Distribution Width 13.5 % (11.5-14.5); Segmented Neutrophils % 80.6 %
[2021-06-26 06:12] LABS: Hemoglobin 13.3 g/dL (11.5-15.4); White Blood Count 13.1 K/mcL (4.3-11.1)
[2021-06-26 06:29] LABS: Calcium 8.3 mg/dL (8.6-10.3); Potassium 4.1 mEq/L (3.5-5.1)
[2021-06-26 08:00] VITALS: O2SAT 97
[2021-06-26] MEDS ORDERED: DilTIAZem CD (24hr) 180 MG CAP.ER.24H PO SCH (09:00)
[2021-06-26 10:45] VITALS: BP 127/75; PULSE 62; TEMP 98
== END 2021-06-26 12:42 | disposition home or self-care (01) | DRG 661 ==
LOC: SAMDAY 10:25 → 3ANU 17:38
PROVIDERS: ADMIT Urology; ATTEND Urology